=== PATIENT | male | born 1950 | race Caucasian/White ===

== ENCOUNTER 2016-08-18 21:05 | Inpatient (IN) | payer OTHER ==
[~2016-08-18] VITALS: Ht 180.3 cm; Wt 98.7 kg
[2016-08-18 21:11] VITALS: BP 204/104; PULSE 123; RESP 38; O2SAT 99
[2016-08-18] MEDS ORDERED: ETOMIDATE 40 MG/20 ML VIAL ONE (21:23)
[2016-08-18] MEDS ORDERED: SUCCINYLCHOLINE CHLORIDE 200 MG/10 ML VIAL ONE (21:24)
[2016-08-18] MEDS ORDERED: SUCCINYLCHOLINE CHLORIDE 200 MG/10 ML VIAL IV PUSH ONE (21:30)
[2016-08-18] MEDS ORDERED: RESP: ALBUTEROL 2.5 MG/IPRATROPIUM 0.5 MG NEB (SCH) INH ONE (21:30)
[2016-08-18] MEDS ORDERED: ETOMIDATE 20 MG/10 ML VIAL IV PUSH ONE (21:30)
[2016-08-18] MEDS ORDERED: SODIUM CHLORIDE 0.9% FLUSH 5 ML FLUSH IVF PRN (21:30)
[2016-08-18] MEDS ORDERED: PROPOFOL 1000 MG/100 ML INJ 100 ML ONE (21:35)
[2016-08-18 21:43] VITALS: O2SAT 100
--- NOTE | 2016-08-18 21:54 | RADRPT ---
EXAM DATE/TIME: 08/18/2016 21:33 [place] COMPARISON: No previous studies available for comparison. INDICATIONS : Endotracheal tube placement. MEDICAL HISTORY : None. SURGICAL HISTORY : None. ENCOUNTER: Initial ACUITY: 1 day PAIN SCORE: Non-responsive. LOCATION: Bilateral chest FINDINGS: A single view of the chest demonstrates the lungs to be symmetrically aerated without evidence of mas s, infiltrate or effusion. ET tube 6 cm above the juan c. Nasogastric tube tip in stomach. The cardio mediastinal contours are unremarkable. Osseous structures are intact. Left humeral prosthesis. Degen erative changes right shoulder. CONCLUSION: 1. Adequate placement of endotracheal tube. 2. Clear lungs. Travon Paris MD on August 18, 2016 at 21:53 Board Certified Radiologist. This report was verified electronically.
--- NOTE | 2016-08-18 21:59 | PD ---
HPI Chief Complaint: Respiratory Distress Time Seen by Provider: 21:10 Travel History International Travel<30 days: No Contact w/Intl Traveler<30days: No Traveled to known affect area: No History of Present Illness HPI The patient is a 65-year-old male who presents to the emergency department via EMS for shortness of breath. According to EMS the patient shortness of breath started approximately 2 hours prior to arrival. When they arrived the patient was short of breath, had elevated respiratory rate, and was placed on CPAP prior to arrival. The patient does have a history of questionable COPD/emphysema, but denies any known history of congestive heart failure. Upon arrival the patient was on continuous positive airway pressure, therefore, was unable to answer questions in . He was able to shake his head yes or no. He denies any history of CHF, cough, or known history of pulmonary embolism/DVT. He denied any chest pain. Symptoms are moderate to severe, no known alleviating or exacerbating factors. PFSH Past Medical History COPD: Yes Diminished Hearing: No Tetanus Vaccination: Unknown Past Surgical History Surgical History: Unable to Obtain Social History Alcohol Use: No Tobacco Use: No Substance Use: No Allergies-Medications (Allergen,Severity, Reaction): Coded Allergies: No Known Allergies (Unverified , 08/18/16) Reported Meds & Prescriptions Reported Meds & Active Scripts Active Active Prescriptions or Reported Medications Unobtainable Review of Systems Except as stated in HPI: all other systems reviewed are Neg General / Constitutional: No: Fever Cardiovascular: No: Chest Pain or Discomfort Respiratory: Positive: Shortness of Breath, No: Cough Gastrointestinal: No: Nausea, Vomiting, Abdominal Pain Physical Exam Narrative GENERAL: Awake, alert, pleasant 65-year-old male appears his stated age and is in moderate to severe respiratory distress. SKIN: Warm and dry. HEAD: Atraumatic. Normocephalic. EYES: No injection or drainage. ENT: CPAP mask on. NECK: Trachea midline. No JVD. CARDIOVASCULAR: Regular, tachycardic with a heart rate in the 130s. RESPIRATORY: Tachypnea with a respiratory rate of 40. Visible supraclavicular and intercostal retractions. Minimal depressed breath sounds in the bases. Prolonged expiratory phase. GASTROINTESTINAL: Abdomen soft, non-tender, nondistended. Abdominal breathing present. MUSCULOSKELETAL: No obvious deformities. No clubbing. No cyanosis. No edema. NEUROLOGICAL: Awake and alert. No obvious cranial nerve deficits. Motor grossly within normal limits. Normal speech. PSYCHIATRIC: Appears anxious. Data Data Last Documented VS Vital Signs Date Time Temp Pulse Resp B/P Pulse Ox O2 Delivery O2 Flow Rate FiO2 08/18/16 21:43 100 50 08/18/16 21:11 123 38 204/104 Orders Etomidate Inj (Amidate Inj) (08/18/16 21:23) Complete Blood Count With Diff (08/18/16 21:23) Comprehensive Metabolic Panel (08/18/16 21:23) B-Type Natriuretic Peptide (08/18/16 21:23) Act Partial Throm Time (Ptt) (08/18/16 21:23) Prothrombin Time / Inr (Pt) (08/18/16 21:23) Magnesium (Mg) (08/18/16 21:23) Ckmb (Isoenzyme) Profile (08/18/16 21:23) Troponin I (08/18/16 21:23) Blood Culture (08/18/16 21:23) Iv Access Insert/Monitor (08/18/16 21:23) Electrocardiogram (08/18/16 21:23) Ecg Monitoring (08/18/16 21:23) Oximetry (08/18/16 21:23) Oxygen Administration (08/18/16 21:23) Chest, Single Ap (08/18/16 21:23) Ct Pulmonary Angiogram (08/18/16 21:23) Sodium Chloride 0.9% Flush (Ns Flush) (08/18/16 21:30) Albuterol-Ipratropium Neb (Duoneb Neb) (08/18/16 21:30) Etomidate Inj (Amidate Inj) (08/18/16 21:30) Succinylcholine Inj (Quelicin Inj) (08/18/16 21:30) Succinylcholine Inj (Quelicin Inj) (08/18/16 21:24) Propofol 1000 Mg/100 Ml Inj (Diprivan 10 (08/18/16 21:35) Lactic Acid (08/18/16 21:50) Propofol 1000 Mg/100 Ml Inj (Diprivan 10 (08/18/16 22:00) ^ Infusion (08/18/16 21:50) RASS (08/18/16 21:50) Neurological Rass Scale JONATHAN.Q2H (08/18/16 21:50) Sodium Chlor 0.9% 1000 Ml Inj (Ns 1000 M (08/18/16 22:00) Midazolam Inj (Versed Inj) (08/18/16 22:00) Neurological Rass Scale Q30MX2,Q2HX4,Q4H (08/18/16 22:00) Neurological Rass Scale Q30MX2,Q2HX4,Q4H (08/18/16 22:00) Fentanyl Drip (Fentanyl Drip) (08/18/16 22:00) Midazolam Inj (Versed Inj) (08/18/16 22:15) CKMB (08/18/16 21:20) CKMB% (08/18/16 21:20) Blood Gas Venous (Vbg) (08/18/16 22:30) Cbc No Diff, Includes Plts (08/19/16 06:00) Cbc No Diff, Includes Plts (08/20/16 06:00) Cbc No Diff, Includes Plts (08/21/16 06:00) Cbc No Diff, Includes Plts (08/22/16 06:00) Cbc No Diff, Includes Plts (08/23/16 06:00) Cbc No Diff, Includes Plts (08/24/16 06:00) Cbc No Diff, Includes Plts (08/25/16 06:00) Basic Metabolic Panel (Bmp) (08/19/16 06:00) Basic Metabolic Panel (Bmp) (08/20/16 06:00) Basic Metabolic Panel (Bmp) (08/21/16 06:00) Basic Metabolic Panel (Bmp) (08/22/16 06:00) Basic Metabolic Panel (Bmp) (08/23/16 06:00) Basic Metabolic Panel (Bmp) (08/24/16 06:00) Basic Metabolic Panel (Bmp) (08/25/16 06:00) Restraints Non-Violent JONATHAN.Q2H.E (08/18/16 23:26) Neurological Rass Scale JONATHAN.Q2H (08/18/16 23:26) Propofol 1000 Mg/100 Ml Inj (Diprivan 10 (08/18/16 23:30) RASS (08/18/16 23:26) ^ Infusion (08/18/16 23:26) Fentanyl Drip (Fentanyl Drip) (08/18/16 23:30) Neurological Rass Scale Q30MX2,Q2HX4,Q4H (08/18/16 23:26) Magnesium Oxide (Mag-Ox) (08/18/16 23:30) Magnesium Sulfate Inj (Magnesium Sulfate (08/18/16 23:30) Magnesium Sulfate Inj (Magnesium Sulfate (08/18/16 23:30) Potassium Chlor 20 Meq Premix (Kcl 20 Me (08/18/16 23:30) Potassium Chlor 20 Meq Premix (Kcl 20 Me (08/18/16 23:30) Potassium Chlor 40 Meq Premix (Kcl 40 Me (08/18/16 23:30) Potassium Chlor 40 Meq Premix (Kcl 40 Me (08/18/16 23:30) Potassium Cl 40 Meq/30 Ml Liq (Kcl 40 Me (08/18/16 23:30) Potassium Cl 40 Meq/30 Ml Liq (Kcl 40 Me (08/18/16 23:30) Potassium Phosphate (K-Phos) (08/18/16 23:30) Potassium Phosphate (K-Phos) (08/18/16 23:30) Potassium Phosphate Inj (Potassium Phosp (08/18/16 23:30) Sodium Phosphate Inj (Sodium Phosphate I (08/18/16 23:30) ^ Medication Admin Instruction (08/18/16 23:26) ^ Notify Dr: Other (08/18/16 23:26) Inpatient Certification (08/18/16 23:26) Bedside Glucose JONATHAN.Q6H (08/18/16 23:26) ^ Blood Glucose Goal (Criteria (08/18/16 23:26) ^ Hypoglycemia 51 - 69 Mg/Dl (08/18/16 23:26) ^ Hypoglycemia 50 Mg/Dl Or < (08/18/16 23:26) ^ Notify Dr: Other (08/18/16 23:26) Dextrose 50% In [place] (Vial) Inj (D50w (Vi (08/18/16 23:30) Insulin Human Reg Supp Scale (Novolin R (08/19/16 00:00) Albuterol-Ipratropium Neb (Duoneb Neb) (08/19/16 04:00) Albuterol-Ipratropium Neb (Duoneb Neb) (08/18/16 23:30) Urinary Catheter Management JONATHAN.Q1H (08/18/16 23:26) Sputum Culture And Gram Stain (08/18/16 23:26) Urinalysis - C+S If Indicated (08/18/16:26) Specimen To Be Collected PRN (08/18/16:) Code Status (08/18/16:) Vital Signs (Adult) JONATHAN.Q1H (08/18/16 23:26) Activity Bed Rest (08/18/16 23:26) ^ Elevate Head Of Bed (08/18/16 23:26) Neuro Checks . ORDERED (08/18/16:26) ^ Orogastric Tube (08/18/16:26) Sodium Chloride 0.9% Flush (Ns Flush) (08/18/16 23:30) Sodium Chloride 0.9% Flush (Ns Flush) (08/19/16 09:00) Pantoprazole Inj (Protonix Inj) (08/19/16 09:00) Ondansetron Inj (Zofran Inj) (08/18/16 23:30) Docusate Sodium-Senna (Lety-Colace) (08/19/16 09:00) Scd Bilateral/Knee High JONATHAN.BID (08/18/16 23:26) ^ Initiate Protocol (08/18/16:26) ^ Instruction (08/18/16:26) [facility] [place] [facility] [place] (08/18/16 23:30) Chlorhexidine 2% Cloth (Chlorhexidine 2% (08/19/16 04:00) Chlorhexidine 2% Cloth (Chlorhexidine 2% (08/18/16 23:30) Neurological Rass Scale JONATHAN.Q2H.E (08/18/16 23:26) ^ Elevate Head Of Bed (08/18/16 23:26) Chlorhexidine 0.12% Liq (Peridex 0.12% L (08/19/16 08:00) Resp Ventilation- Volume (08/18/16 ) Ventilator Weaning Readiness JONATHAN.DAILY@0800 (08/18/16 23:26) Levofloxacin 750 Mg Premix Inj (Levaquin (08/18/16 23:30) Admit Order (Ed Use Only) (08/18/16 23:37) Labs Laboratory Tests Test 08/18/16 08/18/16 08/18/16 21:20 21:50 22:30 White Blood Count 12.4 TH/MM3 Red Blood Count 5.04 MIL/MM3 Hemoglobin 14.2 GM/DL Hematocrit 44.0 % Mean Corpuscular Volume 87.3 FL Mean Corpuscular Hemoglobin 28.2 PG Mean Corpuscular Hemoglobin 32.4 % Concent Red Cell Distribution Width 15.3 % Platelet Count 322 TH/MM3 Mean Platelet Volume 7.6 FL Neutrophils (%) (Auto) 68.2 % Lymphocytes (%) (Auto) 16.0 % Monocytes (%) (Auto) 8.0 % Eosinophils (%) (Auto) 7.0 % Basophils (%) (Auto) 0.8 % Neutrophils # (Auto) 8.4 TH/MM3 Lymphocytes # (Auto) 2.0 TH/MM3 Monocytes # (Auto) 1.0 TH/MM3 Eosinophils # (Auto) 0.9 TH/MM3 Basophils # (Auto) 0.1 TH/MM3 CBC Comment DIFF FINAL Differential Comment Prothrombin Time 11.3 SEC Prothromb Time International 1.0 RATIO Ratio Activated Partial 25.8 SEC Thromboplast Time Sodium Level 138 MEQ/L Potassium Level 4.2 MEQ/L Chloride Level 104 MEQ/L Carbon Dioxide Level 27.0 MEQ/L Anion Gap 7 MEQ/L Blood Urea Nitrogen 24 MG/DL Creatinine 1.02 MG/DL Estimat Glomerular Filtration 74 ML/MIN Rate Random Glucose 143 MG/DL Calcium Level 8.5 MG/DL Magnesium Level 2.0 MG/DL Total Bilirubin 0.7 MG/DL Aspartate Amino Transf 12 U/L (AST/SGOT) Alanine Aminotransferase 20 U/L (ALT/SGPT) Alkaline Phosphatase 87 U/L Total Creatine Kinase 168 U/L Creatine Kinase MB 4.6 NG/ML Troponin I LESS THAN 0.02 NG/ML B-Type Natriuretic Peptide 33 PG/ML Total Protein 7.2 GM/DL Albumin 3.8 GM/DL Lactic Acid Level 1.0 mmol/L Blood Gas Puncture Site RT RADIAL Blood Gas Patient Temperature 98.6 Venous Blood pH 7.21 Venous Blood Partial Pressure 66 mmHg CO2 Venous Blood Partial Pressure 42 mmHg O2 Venous Blood HCO3 25 mmol/L Venous Blood Oxygen Saturation 64 % Venous Blood Oxygen Content 11.6 Vol % Venous Blood Base Excess -1.8 mmol/L Oxygen Delivery Device VENTILATOR Blood Gas Ventilator Setting PRVC/AC Blood Gas Inspired Oxygen 50 % [facility] Medical Decision Making Medical Screen Exam Complete: Yes Emergency Medical Condition: Yes Medical Record Reviewed: Yes Interpretation(s) EKG reveals sinus tachycardia with a heart rate of 102. QTC [address] elevations noted. Laboratory Tests Test 08/18/16 08/18/16 08/18/16 21:20 21:50 22:30 White Blood Count 12.4 TH/MM3 Red Blood Count 5.04 MIL/MM3 Hemoglobin 14.2 GM/DL Hematocrit 44.0 % Mean Corpuscular Volume 87.3 FL Mean Corpuscular Hemoglobin 28.2 PG Mean Corpuscular Hemoglobin 32.4 % Concent Red Cell Distribution Width 15.3 % Platelet Count 322 TH/MM3 Mean Platelet Volume 7.6 FL Neutrophils (%) (Auto) 68.2 % Lymphocytes (%) (Auto) 16.0 % Monocytes (%) (Auto) 8.0 % Eosinophils (%) (Auto) 7.0 % Basophils (%) (Auto) 0.8 % Neutrophils # (Auto) 8.4 TH/MM3 Lymphocytes # (Auto) 2.0 TH/MM3 Monocytes # (Auto) 1.0 TH/MM3 Eosinophils # (Auto) 0.9 TH/MM3 Basophils # (Auto) 0.1 TH/MM3 CBC Comment DIFF FINAL Differential Comment Prothrombin Time 11.3 SEC Prothromb Time International 1.0 RATIO Ratio Activated Partial 25.8 SEC Thromboplast Time Sodium Level 138 MEQ/L Potassium Level 4.2 MEQ/L Chloride Level 104 MEQ/L Carbon Dioxide Level 27.0 MEQ/L Anion Gap 7 MEQ/L Blood Urea Nitrogen 24 MG/DL Creatinine 1.02 MG/DL Estimat Glomerular Filtration 74 ML/MIN Rate Random Glucose 143 MG/DL Calcium Level 8.5 MG/DL Magnesium Level 2.0 MG/DL Total Bilirubin 0.7 MG/DL Aspartate Amino Transf 12 U/L (AST/SGOT) Alanine Aminotransferase 20 U/L (ALT/SGPT) Alkaline Phosphatase 87 U/L Total Creatine Kinase 168 U/L Creatine Kinase MB 4.6 NG/ML Troponin I LESS THAN 0.02 NG/ML B-Type Natriuretic Peptide 33 PG/ML Total Protein 7.2 GM/DL Albumin 3.8 GM/DL Lactic Acid Level 1.0 mmol/L Blood Gas Puncture Site RT RADIAL Blood Gas Patient Temperature 98.6 Venous Blood pH 7.21 Venous Blood Partial Pressure 66 mmHg CO2 Venous Blood Partial Pressure 42 mmHg O2 Venous Blood HCO3 25 mmol/L Venous Blood Oxygen Saturation 64 % Venous Blood Oxygen Content 11.6 Vol % Venous Blood Base Excess -1.8 mmol/L Oxygen Delivery Device VENTILATOR Blood Gas Ventilator Setting PRVC/AC Blood Gas Inspired Oxygen 50 % Last Impressions Chest X-Ray 08/18/162122 Signed Impressions: Service Date/Time: Thursday, August 18, 2016 21:33 - CONCLUSION: 1. Adequate placement of endotracheal tube. 2. Clear lungs. Travon Paris MD Differential Diagnosis Differential diagnosis includes COPD exacerbation, flash pulmonary edema, pneumonia, pulmonary embolism, pleural effusion, ACS, hypoxia. Narrative Course IV was established, labs are drawn and sent, and the patient was placed on cardiac telemetry monitoring and continuous pulse oximetry monitoring. The patient was immediately placed on BiPap. Chest x-ray was ordered and CT pulmonary angiogram was ordered. EKG was ordered and performed. The patient was monitored, he had increasing symptoms despite positive pressure ventilation , had a discussion with the patient at bedside regarding intubation, patient was agreeable. Therefore, patient was intubated using rapid sequence intubation with an 8.0 endotracheal tube. Chest x-ray was then performed which reveals adequate placement endotracheal tube and orogastric tube, clear lungs. Therefore, CT pulmonary angiogram was performed. The patient was placed on propofol for sedation and IV fluids. Lactic acid and blood cultures were sent to lab. White count is minimally elevated, chest x-ray was clear. The patient is afebrile, had a discussion with the daughter, who states the patient had one episode of respiratory problems in the past secondary to pneumonia. I discussed the patient with the on-call product marketing executive, Dr. Maxwell, who agrees with admission. Critical Care Narrative Aggregate critical care time was 40 minutes. Time to perform other separately billable procedures was not included in the critical care time. My time did not include minutes spent treating any other patients simultaneously or on activities that did not directly contribute to the patient's treatment. The services I provided to this patient were to treat and/or prevent clinically significant deterioration that could result in: Anoxia, hypoxia, arrhythmia, aspiration, . I provided critical care services requiring my management, as noted below: Chart data review, documentation time, medication orders and management, vital sign assessments/reviewing monitor data, ordering and reviewing lab tests, ordering and interpreting/reviewing x-rays and diagnostic studies, care of the patient and discussion of the patient with the admitting physicians. Procedures Procedure Narrative After the risks and benefits were discussed the following procedure was performed: INTUBATION: The patient was put in optimal position for the procedure. Rapid sequence intubation was initiated by me using 20 milligrams of etomidate IV and 100 milligrams of succinylcholine IV. The patient was intubated with a 8-0 cuffed endotracheal tube. Tube placement was confirmed by visualization of the tube and balloon passing through the cords, capnometry and subsequent chest x- ray. Breath sounds were equal and well aerated bilaterally postintubation. No breath sounds over stomach. Patient tolerated procedure well. Physician Communication Physician Communication I discussed the patient with Dr. Maxwell who agrees with admission. Diagnosis Primary Impression: Respiratory distress Additional Impression: Dyspnea Qualified Code: R06.00 - Dyspnea, unspecified type Scripts Unable to Obtain Active Prescriptions or Reported Meds Condition: Critical Andrea Greco MD Aug 18, 2016 21:59
[2016-08-18 22:00] VITALS: BP 83/54; PULSE 102; RESP 16; O2SAT 99
[2016-08-18] MEDS ORDERED: PROPOFOL 1000 MG/100 ML INJ 100 ML IV SCH (22:00)
[2016-08-18] MEDS ORDERED: SODIUM CHLOR 0.9% 1000 ML INJ 1,000 ML IV ONE (22:00)
[2016-08-18] MEDS ORDERED: fentaNYL DRIP 250 ML IV SCH ×2 (22:00→23:30)
[2016-08-18] MEDS ORDERED: MIDAZOLAM 100 MG/ML INJ 100 ML IV SCH (22:00)
[2016-08-18 22:10] LABS: AUTOMATED NEUTROPHIL # 8.4 TH/MM3 (1.8-7.7); BASOPHIL # 0.1 TH/MM3 (0-0.2); BASOPHIL % 0.8 % (0.0-2.0); EOSINOPHIL # 0.9 TH/MM3 (0-0.4); HEMO FLAGS DIFF FINAL; MEAN CELL VOLUME 87.3 FL (80.0-100.0); MEAN CORPUSCULAR HEMOGLOBIN 28.2 PG (27.0-34.0); MEAN CORPUSCULAR HGB CONC 32.4 % (32.0-36.0); NEUT % 68.2 % (16.0-70.0); PLATELET COUNT 322 TH/MM3 (150-450); RED BLOOD COUNT 5.04 MIL/MM3 (4.50-5.90); RED CELL DISTRIBUTION WIDTH 15.3 % (11.6-17.2); WHITE BLOOD COUNT 12.4 TH/MM3 (4.0-11.0)
[2016-08-18] MEDS ORDERED: MIDAZOLAM HCL 2 MG/2 ML VIAL IV PUSH ONE (22:15)
[2016-08-18 22:30] VITALS: BP 110/62; PULSE 108; RESP 16; O2SAT 99
[2016-08-18 22:30] LABS: APTT (PATIENT) 25.8 SEC (24.3-30.1); PROTHROMBIN TIME - PATIENT 11.3 SEC (9.8-11.6)
[2016-08-18 22:36] LABS: ALT (GPT) 20 U/L (12-78); ANION GAP 7 MEQ/L (5-15); AST (GOT) 12 U/L (15-37); BLOOD UREA NITROGEN 24 MG/DL (7-18); CHLORIDE 104 MEQ/L (98-107); GLOMERULAR FILTRATION RATE 74 ML/MIN (>89); POTASSIUM 4.2 MEQ/L (3.5-5.1); SODIUM (NA) 138 MEQ/L (136-145)
[2016-08-18 22:40] LABS: ALKALINE PHOSPHATASE 87 U/L (45-117); CREATINE KINASE 168 U/L (39-308); TOTAL BILIRUBIN ADULT 0.7 MG/DL (0.2-1.0)
[2016-08-18 22:41] LABS: BLOOD GAS VENOUS BASE EXCESS -1.8 mmol/L (-2-2); BLOOD GAS VENOUS HCO3 25 mmol/L (22-26); BLOOD GAS VENOUS O2 CONTENT 11.6 Vol % (9.0-17.0); BLOOD GAS VENOUS O2 HGB SAT 64 % (70-76); BLOOD GAS VENOUS PCO2 66 mmHg (44-48); BLOOD GAS VENOUS PO2 42 mmHg (35-40); BLOOD GAS VENOUS pH 7.21 (7.360-7.400); CRITICAL VALUE YES; OXYGEN DEVICE VENTILATOR; TEMP CORR TO 98.6
[2016-08-18 22:42] LABS: DRAW SITE RT RADIAL; FIO2 50 %; STAT YES; VENT SETTINGS PRVC/AC
[2016-08-18 22:53] LABS: CKMB 4.6 NG/ML (0.5-3.6)
[2016-08-18 23:00] VITALS: BP 153/89; PULSE 102; RESP 16; O2SAT 100
[2016-08-18 23:30] VITALS: BP 155/88; PULSE 104; RESP 16; O2SAT 99
[2016-08-18] MEDS ORDERED: MAGNESIUM SULFATE INJ 2 GM in SODIUM CHLORIDE 0.9% INJ 96 ML IV PRN (23:30)
[2016-08-18] MEDS ORDERED: POTASSIUM CHLOR 40 MEQ PREMIX 100 ML IV PRN ×2 (23:30)
[2016-08-18] MEDS ORDERED: DEXTROSE 50% IN WATER 50 ML VIAL(D50) IV PUSH PRN (23:30)
[2016-08-18] MEDS ORDERED: ONDANSETRON HCL 4 MG/2 ML VIAL IV PRN (23:30)
[2016-08-18] MEDS ORDERED: MISCELLANEOUS NURSING INFORMATION XX SCH (23:30)
[2016-08-18] MEDS ORDERED: POTASSIUM PHOSPHATE MONOBASIC 500 MG TAB PO/TUBE PRN (23:30)
[2016-08-18] MEDS ORDERED: MAGNESIUM SULFATE INJ 4 GM in SODIUM CHLORIDE 0.9% INJ 92 ML IV PRN (23:30)
[2016-08-18] MEDS ORDERED: CHLORHEXIDINE GLUCONATE 2 % 1 PACK (2 CLOTHS) TOP PRN (23:30)
[2016-08-18] MEDS ORDERED: POTASSIUM PHOSPHATE INJ 30 MMOL in SODIUM CHLOR 0.9% 250 ML INJ 250 ML IV PRN (23:30)
[2016-08-18] MEDS ORDERED: RESP: ALBUTEROL 2.5 MG/IPRATROPIUM 0.5 MG NEB (PRN) INH (23:30)
[2016-08-18] MEDS ORDERED: POTASSIUM CL 40 MEQ/30 ML LIQ UDC PO/TUBE PRN ×2 (23:30)
[2016-08-18] MEDS ORDERED: SODIUM CHLORIDE 0.9% FLUSH 5 ML FLUSH IV FLUSH PRN (23:30)
[2016-08-18] MEDS ORDERED: SODIUM PHOSPHATE INJ 30 MMOL in SODIUM CHLOR 0.9% 250 ML INJ 240 ML IV PRN (23:30)
[2016-08-18] MEDS ORDERED: POTASSIUM CHLOR 20 MEQ PREMIX 100 ML IV PRN ×2 (23:30)
[2016-08-18] MEDS ORDERED: POTASSIUM PHOSPHATE MONOBASIC 500 MG TAB PO PRN (23:30)
[2016-08-18] MEDS ORDERED: MAGNESIUM OXIDE 400 MG TAB PO PRN (23:30)
--- NOTE | 2016-08-18 23:31 | HHI.HP ---
[facility] Service Critical Care Medicine Primary Care Physician Unknown Admission Diagnosis Diagnosis: Chief Complaint: shortness of breath Travel History International Travel<30 Days: No Contact w/Intl Traveler <30 Da: No Traveled to Known Affected Are: No History of Present Illness This is a 65-year-old male who has a remote prior smoking history and a history of hypertension who presents with a few day history of mild dyspnea followed by severe dyspnea today who presented to the emergency room with severe shortness of breath. He endorses a cough, but denied fever, chills. Denied abdominal pain, nausea, vomiting, constipation, diarrhea. He was otherwise in his usual state of health. He was active today and per his [id number] he babysat his grandchildren. The patient was initially trialed on BiPAP but failed for acute dyspnea and hypoxia and was intubated in the emergency department. He was awake enough on my evaluation that he could nod to answer questions, but was still on sedation and so the remainder the history was very difficult to obtain. Critical care medicine is consult to evaluate his acute hypoxic failure. Of note, the patient did convey to me that he recently seen a outpatient physician and was given steroids for this shortness of breath. He does not have a documented history of COPD, but does have a remote long history of smoking Review of Systems ROS Limitations: Clinical Condition, Intubated Past Family Social History Allergies: Coded Allergies: No Known Allergies (Unverified , 08/18/16) Past Medical History Hypertension Past Surgical History Left shoulder arthroplasty Reported Medications Lisinopril Active Ordered Medications See MAR Family History A complete family history is unobtainable secondary to patient's clinical condition. It is unlikely to be contributory to his acute illness. Social History Complete social history is unobtainable secondary to patient's clinical condition. He does have a remote history of smoking but has not smoked in a number of years. Physical Exam Vital Signs Vital Signs Date Time Temp Pulse Resp B/P Pulse Ox O2 Delivery O2 Flow Rate FiO2 08/18/16 21:43 100 50 08/18/16 21:11 123 38 204/104 99 Physical Exam GENERAL: Middle-aged male, lying in bed, intubated HEENT: Normocephalic. Atraumatic. Pupils equal, round, reactive, conjugate. Mucous membranes are moist. NECK: Trachea is midline. There is no JVD. CHEST: Equal chest rise. Scant expiratory wheezes. Intubated on PRVC. CARDIOVASCULAR: Normal rate, regular rhythm. No appreciable murmurs. ABDOMEN: Nontender, nondistended. No guarding. MUSCULOSKELETAL: No peripheral edema. Distal pulses 2+. NEUROLOGICAL: RASS -2. CAM -. Follows commands in all 4 extremities. Laboratory Laboratory Tests Test 08/18/16 08/18/16 08/18/16 21:20 21:50 22:30 White Blood Count 12.4 Red Blood Count 5.04 Hemoglobin 14.2 Hematocrit 44.0 Mean Corpuscular Volume 87.3 Mean Corpuscular Hemoglobin 28.2 Mean Corpuscular Hemoglobin 32.4 Concent Red Cell Distribution Width 15.3 Platelet Count 322 Mean Platelet Volume 7.6 Neutrophils (%) (Auto) 68.2 Lymphocytes (%) (Auto) 16.0 Monocytes (%) (Auto) 8.0 Eosinophils (%) (Auto) 7.0 Basophils (%) (Auto) 0.8 Neutrophils # (Auto) 8.4 Lymphocytes # (Auto) 2.0 Monocytes # (Auto) 1.0 Eosinophils # (Auto) 0.9 Basophils # (Auto) 0.1 CBC Comment DIFF FINAL Differential Comment Prothrombin Time 11.3 Prothromb Time International 1.0 Ratio Activated Partial 25.8 Thromboplast Time Sodium Level 138 Potassium Level 4.2 Chloride Level 104 Carbon Dioxide Level 27.0 Anion Gap 7 Blood Urea Nitrogen 24 Creatinine 1.02 Estimat Glomerular Filtration 74 Rate Random Glucose 143 Calcium Level 8.5 Magnesium Level 2.0 Total Bilirubin 0.7 Aspartate Amino Transf 12 (AST/SGOT) Alanine Aminotransferase 20 (ALT/SGPT) Alkaline Phosphatase 87 Total Creatine Kinase 168 Creatine Kinase MB 4.6 Troponin I LESS THAN 0.02 B-Type Natriuretic Peptide 33 Total Protein 7.2 Albumin 3.8 Lactic Acid Level 1.0 Blood Gas Puncture Site RT RADIAL Blood Gas Patient Temperature 98.6 Venous Blood pH 7.21 Venous Blood Partial Pressure 66 CO2 Venous Blood Partial Pressure 42 O2 Venous Blood HCO3 25 Venous Blood Oxygen Saturation 64 Venous Blood Oxygen Content 11.6 Venous Blood Base Excess -1.8 Oxygen Delivery Device VENTILATOR Blood Gas Ventilator Setting PRVC/AC Blood Gas Inspired Oxygen 50 Date/Time Procedure Status Source Growth 08/18/16 21:25 Aerobic Blood Culture Received Blood Peripheral Pending 08/18/16 21:25 Anaerobic Blood Culture Received Blood Peripheral Pending Result Diagram: 08/18/16211908/18/162119 Imaging Chest x-ray 08/18: No acute abnormalities CT pulmonary angiogram 08/18: Negative for acute PE. Assessment and Plan Assessment and Plan Assessment: This is a 65-year-old male with questionable possible COPD history and certainly a remote prior smoking history who has a subacute course of dyspnea which was acutely worse today and he presented in acute hypoxic and hypercarbic respiratory failure requiring intubation and mechanical ventilation. His BNP and troponin are negative. This is unlikely to be acute volume overload. His CT pulmonary angiogram is without evidence of PE. His CT is also without evidence of consolidative alveolar process. I think this point we are left with probable COPD exacerbation as a cause for his acute hypoxia. We will start empiric steroids and Levaquin for possible CAP. we will follow up culture data. For now he remains critically ill. Plan by systems: Neurologic: Agitation associated with mechanical ventilation Propofol and fentanyl for goal RASS -2 Respiratory: Acute hypoxic and hypercarbic respiratory failure COPD exacerbation Possible community-acquired pneumonia Low tidal volume ventilation targeting 6 cc/kg ideal body weight Wean FiO2 for goal SPO2 greater than 90% Vent bundle Head of bed at 30 Methylprednisolone 60 mg IV every 12 Nebs every 4 and every 2 when necessary Does not meet SBT criteria today for acute hypoxia CT pulmonary angiogram 08/18: Negative for PE Cardiovascular: Continue telemetry Maintenance fluids LR 150 cc an hour LR bolus 1 L now Renal: Victor catheter for accurate I's and O's -- Strict I/Os FEN/GI: Maintenance fluids as above ICU electrolyte protocol Daily BMP Nothing by mouth for now Heme/ID: Possible community-acquired pneumonia COPD exacerbation We'll obtain flu swab Follow-up blood, sputum cultures Levaquin 750 mg IV 24 hours Daily CBC Endocrine: Hyperglycemia of critical illness -- SSI, every 6 hours, medium scale Prophylaxis: GI Prophylaxis Protonix 40 mg IV daily 24 hours DVT Prophylaxis -- SCDs Lovenox 40 mg IV daily 24 hours Lines: Peripheral IVs Victor Dispo: Admit to the ICU. He remains critically ill This patient remains critically ill with one or more organ systems which are or may become a threat to life. I have spent in excess of 57 minutes discontinuously in the care and management of this patient. This time is exclusive of procedures, and includes, but is not limited to, evaluation of the patient, review of the medical record, discussions with family, consultants, nursing staff, or respiratory therapy, and documentation in the medical record. Code Status Full Code Delvis Maxwell MD Aug 18, 2016 23:30
[2016-08-19] VITALS (20 sets, daily range): BP systolic 108–165; BP diastolic 61–94; PULSE 61–102; RESP 13–20; TEMP 97.6–98.7; O2SAT 95–100
[2016-08-19 00:15] LABS: BLOOD, URINE SMALL (NEG); GLUCOSE,URINE NEG (NEG); KETONE, URINE NEG (NEG); MUCUS URINE FEW /lpf (OCC); NITRITE,URINE NEG (NEG); PH, URINE 5.5 (5.0-8.5); URINE COLOR YELLOW (YELLW/STRAW)
[2016-08-19 00:17] LABS: COMMENT (UR) CATH-CULT NOT IND; CULTURE IF INDICATED CATH CULTURE NOT IND
[2016-08-19] MEDS: LEVOFLOXACIN 750 MG PREMIX INJ 150 ML IV SCH (00:31)
[2016-08-19] MEDS: PROPOFOL 1000 MG/100 ML INJ 100 ML IV SCH ×4 (00:41→09:41)
[2016-08-19] MEDS: INSULIN NovoLIN REGULAR SUPPLEMENTAL SCALE SQ SCH ×4 (00:50→18:00)
[2016-08-19] MEDS ORDERED: IOHEXOL 350 MG/ML 10 ML VIAL (for RAD DIAG) IV ONE ×2 (01:38→03:27)
--- NOTE | 2016-08-19 03:24 | RADRPT ---
EXAM DATE/TIME: 08/19/2016 01:29 [facility] COMPARISON: No previous studies available for comparison. INDICATIONS : Sudden onset short of breath, evaluate for pulmonary emoblism . IV CONTRAST: 75 cc Omnipaque 350 (iohexol) IV RADIATION DOSE: 23.46 CTDIvol (mGy) MEDICAL HISTORY : Chronic obstructive pulmonary disease. SURGICAL HISTORY : None. ENCOUNTER: Initial ACUITY: 1 day PAIN SCALE: Non-responsive LOCATION: chest TECHNIQUE: Volumetric scanning of the chest was performed using a pulmonary embolism protocol MIP images were re constructed. Using automated exposure control and adjustment of the mA and/or kV according to patien t size, radiation dose was kept as low as reasonably achievable to obtain optimal diagnostic quality images. FINDINGS: PULMONARY ARTERIES: No filling defects are seen in the pulmonary arteries through the segmental level. LUNGS: Minimal basilar atelectasis. PLEURAE: There is no pleural thickening or pleural effusion. MEDIASTINUM: There is good visualization of the great vessels of the middle mediastinum. No evidence of mediastin al or hilar adenopathy/mass. MUSCULOSKELETAL: Within normal limits for patient age. MISCELLANEOUS: The visualized upper abdominal organs demonstrate no acute abnormality. Endotracheal tube and nasogas tric tube present in good position CONCLUSION: No evidence of pulmonary embolism Robert Mendez MD on August 19, 2016 at 3:18 Board Certified Radiologist. This report was verified electronically.
[2016-08-19] MEDS ORDERED: LACTATED RINGER'S 1000 ML INJ 1,000 ML IV ONE (03:30)
[2016-08-19] MEDS: LACTATED RINGER'S 1000 ML INJ 1,000 ML IV SCH ×3 (03:54→16:50)
[2016-08-19] MEDS ORDERED: RESP: ALBUTEROL 2.5 MG/IPRATROPIUM 0.5 MG NEB (SCH) INH (04:00)
[2016-08-19] MEDS ORDERED: RESP: ALBUTEROL 2.5 MG/IPRATROPIUM 0.5 MG NEB (PRN) INH (04:15)
[2016-08-19 04:29] LABS: HEMATOCRIT 39.7 % (39.0-51.0); MEAN CELL VOLUME 86.7 FL (80.0-100.0); MEAN CORPUSCULAR HEMOGLOBIN 28.3 PG (27.0-34.0); MEAN CORPUSCULAR HGB CONC 32.7 % (32.0-36.0); PLATELET COUNT 273 TH/MM3 (150-450); RED BLOOD COUNT 4.57 MIL/MM3 (4.50-5.90); RED CELL DISTRIBUTION WIDTH 15.4 % (11.6-17.2); REVIEW FLAG FINAL; WHITE BLOOD COUNT 11.7 TH/MM3 (4.0-11.0)
[2016-08-19] MEDS: CHLORHEXIDINE GLUCONATE 2 % 1 PACK (2 CLOTHS) TOP SCH (04:48)
[2016-08-19 04:49] LABS: POTASSIUM 4.3 MEQ/L (3.5-5.1)
[2016-08-19 05:32] LABS: BLOOD GAS BASE EXCESS -1.4 mmol/L (-2-2); BLOOD GAS CARBOXYHEMOGLOBIN 0.9 % (0-4); BLOOD GAS HCO3 24 mmol/L (22-26); BLOOD GAS METHEMOGLOBIN 0.9 % (0-2); BLOOD GAS O2 HGB SATURATION 92 % (90-100); BLOOD GAS OXYGEN CONTENT 16.8 Vol % (12.0-20.0); BLOOD GAS PCO2 48 mmHg (38-42); BLOOD GAS PO2 75 mmHg (61-120); BLOOD GAS TOTAL HGB 12.9 G/DL (12.0-16.0); CRITICAL VALUE NO; OXYGEN DEVICE VENTILATOR; TEMP CORR TO 98.6
[2016-08-19 05:33] LABS: DRAW SITE LT RADIAL; FIO2 40 %; NUMBER OF ARTERIAL PUNCTURES 2; STAT NO; ULNAR PULSE PRESENT; VENT SETTINGS PRVC/AC
[2016-08-19] MEDS: ENOXAPARIN SODIUM 40 MG/0.4 ML SYRINGE SQ SCH (05:57)
[2016-08-19] MEDS: CHLORHEXIDINE 0.12% (ORAL KIT) 15 ML CUP MT SCH ×2 (08:00→20:00)
[2016-08-19] MEDS: SODIUM CHLORIDE 0.9% FLUSH 5 ML FLUSH IV FLUSH SCH ×2 (08:26→20:41)
[2016-08-19] MEDS: PANTOPRAZOLE SODIUM 40 MG VIAL IV SCH (08:26)
[2016-08-19] MEDS: DOCUSATE SODIUM 50 MG/SENNA 8.6 MG TAB PO SCH ×2 (08:27→20:41)
[2016-08-19] MEDS ORDERED: methylPREDNISolone SOD SUCC 125 MG/2 ML VIAL IV PUSH SCH (09:00)
[2016-08-19] MEDS: RESP: ALBUTEROL 2.5 MG/IPRATROPIUM 0.5 MG NEB (SCH) INH ×4 (09:57→20:25)
--- NOTE | 2016-08-19 15:33 | HHI.CCPN ---
Subjective Remarks/Hospital Course This is a 65-year-old male who has a remote prior smoking history and a history of hypertension who presents with a few day history of mild dyspnea followed by severe dyspnea today who presented to the emergency room with severe shortness of breath. He endorses a cough, but denied fever, chills. Denied abdominal pain, nausea, vomiting, constipation, diarrhea. He was otherwise in his usual state of health. He was active today and per his [id number] he babysat his grandchildren. The patient was initially trialed on BiPAP but failed for acute dyspnea and hypoxia and was intubated in the emergency department. He was awake enough on my evaluation that he could nod to answer questions, but was still on sedation and so the remainder the history was very difficult to obtain. Critical care medicine is consult to evaluate his acute hypoxic failure. Of note, the patient did convey to me that he recently seen a outpatient physician and was given steroids for this shortness of breath. He does not have a documented history of COPD, but does have a remote long history of smoking. 08/19: Able to extubate today, breathing comfortably. Objective Vital Signs Date Time Temp Pulse Resp B/P Pulse Ox O2 Delivery O2 Flow Rate FiO2 08/19/16 14:00 80 08/19/16 12:35 95 Nasal Cannula 4 08/19/16 12:05 40 08/19/16 12:00 98.2 13 108/65 Result Diagram: 08/19/16 0343 08/19/16 0343 Other Results Microbiology Date/Time Procedure Status Source Growth 08/19/16 04:40 Influenza Types A,B Antigen (ALBERTO) - Final Complete Nasal Aspirate NEGATIVE FOR FLU A AND B ANTIGEN.... Laboratory Tests Test 08/18/16 08/19/16 22:30 05:19 Blood Gas Puncture Site RT RADIAL LT RADIAL Blood Gas Patient Temperature 98.6 98.6 Venous Blood pH 7.21 (7.360-7.400) Venous Blood Partial Pressure 66 mmHg (44-48) CO2 Venous Blood Partial Pressure 42 mmHg (35-40) O2 Venous Blood HCO3 25 mmol/L (22-26) Venous Blood Oxygen Saturation 64 % (70-76) Venous Blood Oxygen Content 11.6 Vol % (9.0-17.0) Venous Blood Base Excess -1.8 mmol/L (-2-2) Oxygen Delivery Device VENTILATOR VENTILATOR Blood Gas Ventilator Setting PRVC/AC PRVC/AC Blood Gas Inspired Oxygen 50 % 40 % Blood Gas HCO3 24 mmol/L (22-26) Blood Gas Base Excess -1.4 mmol/L (-2-2) Blood Gas Oxygen Saturation 92 % (90-100) Arterial Blood pH 7.32 (7.380-7.420) Arterial Blood Partial 48 mmHg (38-42) Pressure CO2 Arterial Blood Partial 75 mmHg Pressure O2 (61-120) Arterial Blood Oxygen Content 16.8 Vol % (12.0-20.0) Arterial Blood 0.9 % (0-4) Carboxyhemoglobin Arterial Blood Methemoglobin 0.9 % (0-2) Blood Gas Hemoglobin 12.9 G/DL (12.0-16.0) Imaging Chest x-ray 08/18: No acute abnormalities CT pulmonary angiogram 08/18: Negative for acute PE. Objective Remarks GENERAL: Middle-aged male, lying in bed HEENT: Normocephalic. Atraumatic. NECK: Trachea is midline. Airway widely patent. CHEST: Equal chest rise. Clear olivier. CARDIOVASCULAR: Normal rate, regular rhythm. No appreciable murmurs. ABDOMEN: Nontender, nondistended. No guarding. MUSCULOSKELETAL: No peripheral edema. Well perfused. NEUROLOGICAL: Conversant. Follows commands in all 4 extremities. A/P Assessment and Plan Plan by systems: Neurologic: Agitation associated with mechanical ventilation Propofol and fentanyl for goal RASS -2 Respiratory: Acute hypoxic and hypercarbic respiratory failure COPD exacerbation Possible community-acquired pneumonia Low tidal volume ventilation targeting 6 cc/kg ideal body weight Wean FiO2 for goal SPO2 greater than 90% Vent bundle Head of bed at 30 Methylprednisolone 60 mg IV every 12 Nebs every 4 and every 2 when necessary Does not meet SBT criteria today for acute hypoxia CT pulmonary angiogram 08/18: Negative for PE Cardiovascular: Continue telemetry Maintenance fluids LR 150 cc an hour LR bolus 1 L now Renal: Victor catheter for accurate I's and O's -- Strict I/Os FEN/GI: Maintenance fluids as above ICU electrolyte protocol Daily BMP Nothing by mouth for now Heme/ID: Possible community-acquired pneumonia COPD exacerbation We'll obtain flu swab Follow-up blood, sputum cultures Levaquin 750 mg IV 24 hours Daily CBC Endocrine: Hyperglycemia of critical illness -- SSI, every 6 hours, medium scale Prophylaxis: GI Prophylaxis Protonix 40 mg IV daily 24 hours DVT Prophylaxis -- SCDs Lovenox 40 mg IV daily 24 hours Lines: Peripheral IVs Valente Overall impression: Resolved COPD exacerbation. Alberto Leos MD Aug 19, 2016 15:33
[2016-08-19] MEDS ORDERED: LISI20TA PO (18:33)
--- NOTE | 2016-08-19 20:32 | MB ---
cc: Ashley STYLES M.D. DATE OF CONSULTATION 08/19/16 REASON FOR CONSULTATION COPD and respiratory failure. HISTORY OF PRESENT ILLNESS This is a 65-hour-old man with a prior history of chronic bronchitis who has been experiencing cough, shortness of breath, wheezing and chest congestion for the past 2-3 weeks. The patient was seen as an outpatient by his family doctor and given an antibiotic and also was on a tapering dose of prednisone as well as a cough medicine. The patient states he was doing okay for about a week and then two days ago, he started to have some dryness in his throat and increasing chest tightness, unable to bring up any sputum and went into severe respiratory distress yesterday and had to be brought to the hospital by [facility]. Following admission, however, the patient was in acute respiratory failure and needed to be intubated urgently and placed on ventilator support. A CT pulmonary angiogram was done which was negative for PE. The patient was given IV steroids, IV antibiotics and now he is extubated and doing better and on a nasal cannula at 3 liters. He complains of some chest tightness. No hemoptysis. No fevers or chills and denies nausea, vomiting or aspiration. PAST MEDICAL HISTORY 1. History of recurrent bronchitis and asthmatic attacks and apparently he has previously been on an inhaler but does not go for regular follow-ups. 2. He has history of mild hypertension PAST SURGICAL HISTORY Left shoulder arthroplasty. HABITS The patient smoked a half to one-pack per day for about 30 years and then quit. No significant alcohol since 11 years. FAMILY HISTORY Significant for carcinoma of the lung in his father and he also had some brain cancer. ALLERGIES No drug allergies are listed. REVIEW OF SYSTEMS The patient has lost some weight. She has postnasal drip, cough, wheezing, chest congestion, epigastric distress and reflux. Denies any leg or calf muscle pains. He has some joint pains. Of his extremities and has had no skin lesions. PHYSICAL EXAMINATION GENERAL: This is a thinly built middle-aged white male who is alert in no acute distress. VITAL SIGNS: Blood pressure 130/75, pulse 80, respirations 24, temperature 98.2 HEENT: Head normocephalic. Pupils are reactive. Tongue moist. Throat is injected. Ears no inflammation. NECK: Supple without bruits, no thyroid enlargement. CHEST: Equal movements with wheezes scattered bilaterally with prolonged expirations. Occasional crackles at the right base. CARDIAC: Heart sounds are irregular, S1-S2 with no murmur. No S3 gallop. Abdomen: Soft, protuberant without masses. No organomegaly or tenderness. Bowel sounds are active. EXTREMITIES: No edema or lesions. No calf tenderness. NEUROLOGIC: Reflexes are 1+ with no gross motor deficits. Cranial nerves grossly intact. RECTAL: Exam is deferred. SKIN: No lesions. IMPRESSION 1. Acute respiratory failure resolved 2. COPD with chronic bronchitis and asthma 3. History of hypertension PLAN The patient will be maintained on antibiotic coverage as ordered including Levaquin 750 mg daily, nebulized DuoNeb solution q.4 h also placed on Breo Ellipta 100/25 micrograms 1 puff daily. A pulmonary function study to be done at the bedside in the a.m. Repeat chest x-ray. Sputum will be sent for gram stain and culture. The patient was advised that he will be weaned off the oxygen hopefully over the next 24-48 hours. Thank you, Dr. Suarez, for this consultation. MD ARNAV Vanegas/ /6:42 PM /8:17 PM
--- NOTE | 2016-08-19 21:04 | EKG ---
Date Performed: 08/18/2016 Time Performed: 21:59:48 PTAGE: 65 years EKG: SINUS TACHYCARDIA ABNORMAL RHYTHM ECG NO PREVIOUS TRACING DOCTOR: Parrish Baker Interpretating Date/Time 08/19/2016 21:01:11
[2016-08-20] VITALS (13 sets, daily range): BP systolic 111–135; BP diastolic 59–68; PULSE 75–99; RESP 15–26; TEMP 98.2–98.9; O2SAT 92–100
[2016-08-20] MEDS: RESP: ALBUTEROL 2.5 MG/IPRATROPIUM 0.5 MG NEB (SCH) INH ×5 (00:08→15:34)
[2016-08-20] MEDS: methylPREDNISolone SOD SUCC 125 MG/2 ML VIAL IV PUSH SCH ×5 (01:17→20:27)
[2016-08-20] MEDS: LEVOFLOXACIN 750 MG PREMIX INJ 150 ML IV SCH ×2 (01:17→23:58)
[2016-08-20] MEDS: LACTATED RINGER'S 1000 ML INJ 1,000 ML IV SCH ×2 (01:17→06:10)
[2016-08-20] MEDS: CHLORHEXIDINE GLUCONATE 2 % 1 PACK (2 CLOTHS) TOP SCH (04:00)
[2016-08-20 04:04] LABS: HEMATOCRIT 36.5 % (39.0-51.0); MEAN CELL VOLUME 86.3 FL (80.0-100.0); MEAN CORPUSCULAR HEMOGLOBIN 28.3 PG (27.0-34.0); MEAN CORPUSCULAR HGB CONC 32.8 % (32.0-36.0); PLATELET COUNT 283 TH/MM3 (150-450); RED BLOOD COUNT 4.23 MIL/MM3 (4.50-5.90); RED CELL DISTRIBUTION WIDTH 15.1 % (11.6-17.2); REVIEW FLAG FINAL; WHITE BLOOD COUNT 13.7 TH/MM3 (4.0-11.0)
[2016-08-20 04:45] LABS: BICARBONATE 29.4 MEQ/L (21.0-32.0); POTASSIUM 4.3 MEQ/L (3.5-5.1)
[2016-08-20 05:24] LABS: BLOOD GAS BASE EXCESS 2.2 mmol/L (-2-2); BLOOD GAS CARBOXYHEMOGLOBIN 1.1 % (0-4); BLOOD GAS HCO3 27 mmol/L (22-26); BLOOD GAS METHEMOGLOBIN 0.9 % (0-2); BLOOD GAS O2 HGB SATURATION 93 % (90-100); BLOOD GAS PCO2 45 mmHg (38-42); BLOOD GAS PO2 79 mmHg (61-120); BLOOD GAS TOTAL HGB 12.1 G/DL (12.0-16.0); CRITICAL VALUE NO; DRAW SITE RT RADIAL; LITER FLOW 2 L/M; NUMBER OF ARTERIAL PUNCTURES 1; STAT NO; TEMP CORR TO 98.6; ULNAR PULSE PRESENT
--- NOTE | 2016-08-20 05:56 | RADRPT ---
EXAM DATE/TIME: 08/20/2016 04:16 [facility] COMPARISON: CHEST SINGLE AP, August 18, 2016, 21:33. INDICATIONS : Please evaluate after respiratory failure. MEDICAL HISTORY : Chronic obstructive pulmonary disease. SURGICAL HISTORY : None. ENCOUNTER: Subsequent ACUITY: 2 days PAIN SCORE: Non-responsive. LOCATION: Bilateral chest FINDINGS: There is prominence of the perivascular markings with crowding of the bronchovascular markings may be due to expiratory state of this radiograph, however slight interstitial process is not excluded.Hear t and mediastinum are unremarkable for technique. Chronic degenerative changes are present in the rig ht shoulder and not changed. The examination is slightly limited due to motion artifact. CONCLUSION: Haziness to the perivascular structures bilaterally possibly technical. Trent Palomino MD on August 20, 2016 at 5:54 Board Certified Radiologist. This report was verified electronically.
[2016-08-20] MEDS: INSULIN NovoLIN REGULAR SUPPLEMENTAL SCALE SQ SCH ×5 (06:00→23:59)
[2016-08-20] MEDS: ENOXAPARIN SODIUM 40 MG/0.4 ML SYRINGE SQ SCH (06:23)
[2016-08-20] MEDS: CHLORHEXIDINE 0.12% (ORAL KIT) 15 ML CUP MT SCH ×2 (08:00→20:00)
[2016-08-20] MEDS: FLUTICASONE 100 MCG/VILANTEROL 25 MCG INHALER INH SCH (08:42)
[2016-08-20] MEDS: PANTOPRAZOLE SODIUM 40 MG VIAL IV SCH (08:42)
[2016-08-20] MEDS: SODIUM CHLORIDE 0.9% FLUSH 5 ML FLUSH IV FLUSH SCH ×2 (08:42→20:17)
[2016-08-20] MEDS: DOCUSATE SODIUM 50 MG/SENNA 8.6 MG TAB PO SCH ×2 (08:43→20:16)
[2016-08-20] MEDS ORDERED: INFLUENZA VIRUS VACCINE (QUADRIVALENT) 0.5 ML SYR IM ONE (10:00)
--- NOTE | 2016-08-20 12:07 | HHI.CCPN ---
Subjective Remarks/Hospital Course This is a 65-year-old male who has a remote prior smoking history and a history of hypertension who presents with a few day history of mild dyspnea followed by severe dyspnea today who presented to the emergency room with severe shortness of breath. He endorses a cough, but denied fever, chills. Denied abdominal pain, nausea, vomiting, constipation, diarrhea. He was otherwise in his usual state of health. He was active today and per his [id number]-oin he babysat his grandchildren. The patient was initially trialed on BiPAP but failed for acute dyspnea and hypoxia and was intubated in the emergency department. He was awake enough on my evaluation that he could nod to answer questions, but was still on sedation and so the remainder the history was very difficult to obtain. Critical care medicine is consult to evaluate his acute hypoxic failure. Of note, the patient did convey to me that he recently seen a outpatient physician and was given steroids for this shortness of breath. He does not have a documented history of COPD, but does have a remote long history of smoking. 08/19: Able to extubate today, breathing comfortably. 08/20: Requiring supple O2. Dr. Sparrow managing respiratory function. Objective Vital Signs Date Time Temp Pulse Resp B/P Pulse Ox O2 Delivery O2 Flow Rate FiO2 08/20/16 10:00 75 08/20/16 08:53 95 Nasal Cannula 2.00 08/20/16 08:00 98.3 26 119/61 08/19/16 12:05 40 Intake and Output 08/19/16 08/19/16 08/20/16 08:00 16:00 00:00 Intake Total 1332 ml 1295 ml 1340 ml Output Total 1300 ml 1350 ml 1600 ml Balance 32 ml -55 ml -260 ml Result Diagram: 08/20/16 0336 08/20/16 0336 Other Results Microbiology Date/Time Procedure Status Source Growth 08/19/16 04:40 Influenza Types A,B Antigen (ALBERTO) - Final Complete Nasal Aspirate NEGATIVE FOR FLU A AND B ANTIGEN.... Laboratory Tests Test 08/20/16 05:14 Blood Gas Puncture Site RT RADIAL Blood Gas Patient Temperature 98.6 Blood Gas HCO3 27 mmol/L (22-26) Blood Gas Base Excess 2.2 mmol/L (-2-2) Blood Gas Oxygen Saturation 93 % (90-100) Arterial Blood pH 7.39 (7.380-7.420) Arterial Blood Partial 45 mmHg (38-42) Pressure CO2 Arterial Blood Partial 79 mmHg Pressure O2 (61-120) Arterial Blood Oxygen Content 16.0 Vol % (12.0-20.0) Arterial Blood 1.1 % (0-4) Carboxyhemoglobin Arterial Blood Methemoglobin 0.9 % (0-2) Blood Gas Hemoglobin 12.1 G/DL (12.0-16.0) Blood Gas Liter Flow 2 L/M Imaging Chest x-ray 08/18: No acute abnormalities CT pulmonary angiogram 08/18: Negative for acute PE. Objective Remarks GENERAL: Middle-aged male, calm HEENT: Normocephalic. Atraumatic. NECK: Airway widely patent. CHEST: Equal chest rise. Clear olivier with light wheezes. CARDIOVASCULAR: Normal rate, regular rhythm. No appreciable murmurs. ABDOMEN: Nontender, nondistended. No guarding. MUSCULOSKELETAL: No peripheral edema. Well perfused. NEUROLOGICAL: Conversant. Follows commands in all 4 extremities. O X 3. A/P Assessment and Plan Plan by systems: Neurologic: NA Respiratory: Acute hypoxic and hypercarbic respiratory failure COPD exacerbation Possible community-acquired pneumonia Wean FiO2 for goal SPO2 greater than 90% -Levaquin Cardiovascular: Continue telemetry Renal: d/c Victor catheter for accurate I's and O's -- Strict I/Os FEN/GI: Maintenance fluids as above ICU electrolyte protocol Daily BMP Nothing by mouth for now Heme/ID: Possible community-acquired pneumonia COPD exacerbation We'll obtain flu swab Follow-up blood, sputum cultures Levaquin 750 mg IV 24 hours Daily CBC Endocrine: Hyperglycemia of critical illness -- SSI, every 6 hours, medium scale Prophylaxis: GI Prophylaxis Protonix 40 mg IV daily 24 hours DVT Prophylaxis -- SCDs Lovenox 40 mg IV daily 24 hours Lines: Peripheral IVs Victor Overall impression: Resolved COPD exacerbation. Home when sats improved. Alberto Leos MD Aug 20, 2016 12:07
--- NOTE | 2016-08-20 18:10 | HHI.PR ---
Subjective Remarks He is better today. Less wheezing. Coughs up little sputum. No Fever. Objective Vital Signs Date Time Temp Pulse Resp B/P Pulse Ox O2 Delivery O2 Flow Rate FiO2 08/20/16 16:12 87 08/20/16 15:38 Nasal Cannula 2.00 08/20/16 15:20 98.2 99 20 135/68 95 08/20/16 14:00 90 08/20/16 12:00 90 08/20/16 12:00 98.5 90 22 114/61 92 08/20/16 10:00 75 08/20/16 08:53 95 Nasal Cannula 2.00 08/20/16 08:00 98.3 88 26 119/61 95 08/20/16 08:00 78 08/20/16 07:00 95 Nasal Cannula 2.00 08/20/16 06:00 91 08/20/16 04:00 75 08/20/16 04:00 98.9 75 15 122/62 100 08/20/16 02:00 78 08/20/16 00:00 75 08/20/16 00:00 98.2 78 15 117/59 97 08/19/16 22:00 89 08/19/16 20:00 85 08/19/16 20:00 98.7 98 18 113/64 97 08/19/16 19:00 96 Nasal Cannula 2.00 I/O 08/19/16 08/19/16 08/19/16 08/20/16 08/20/16 08/20/16 07:00 15:00 23:00 07:00 15:00 23:00 Intake Total 1332 ml 1295 ml 1340 ml 1453 ml 1193 ml Output Total 1300 ml 1350 ml 1600 ml 1700 ml 750 ml Balance 32 ml -55 ml -260 ml -247 ml 443 ml Intake Oral 250 ml 250 ml IV Total 1332 ml 1295 ml 1340 ml 1203 ml 943 ml Output Urine Total 1300 ml 1350 ml 1600 ml 1700 ml 750 ml # Bowel Movements 0 Result Diagram: 08/20/16 0336 08/20/16 0336 Objective Remarks GENERAL: This is a thinly built middle-aged white male who is alert in no acute distress. HEENT: Head normocephalic. Pupils are reactive. Tongue moist. Throat is injected. Ears no inflammation. NECK: Supple without bruits, no thyroid enlargement. CHEST: Equal movements with wheezes scattered bilaterally with prolonged expirations. crackles at the right base. CARDIAC: Heart sounds are irregular, S1-S2 with no murmur. No S3 gallop. Abdomen: Soft, protuberant without masses. No organomegaly or tenderness. Bowel sounds are active. EXTREMITIES: No edema or lesions. No calf tenderness. NEUROLOGIC: Reflexes are 1+ with no gross motor deficits. Cranial nerves grossly intact. RECTAL: Exam is deferred. SKIN: No lesions. Assessment and Plan Assessment and Plan IMPRESSION 1. Acute respiratory failure resolved 2. COPD with chronic bronchitis and asthma 3. History of hypertension Plan : 1. Cont Antibiotic. 2. taper solumedrol to 40 mg IV q8h. 3. Nebs qid , duoneb 4. PFT on Tuesday. 5. Add Breo Ellipta 100 Mcg , 1 puff daily 6. Transfer to [facility]. Ashley Obregon MD Aug 20, 2016 18:10
[2016-08-21] VITALS (12 sets, daily range): BP systolic 106–138; BP diastolic 63–81; PULSE 75–95; RESP 16–20; TEMP 98–98.7; O2SAT 93–98
[2016-08-21] MEDS: RESP: ALBUTEROL 2.5 MG/IPRATROPIUM 0.5 MG NEB (SCH) INH ×7 (00:03→23:37)
[2016-08-21] MEDS: CHLORHEXIDINE GLUCONATE 2 % 1 PACK (2 CLOTHS) TOP SCH (04:00)
[2016-08-21] MEDS: INSULIN NovoLIN REGULAR SUPPLEMENTAL SCALE SQ SCH ×3 (05:11→17:24)
[2016-08-21] MEDS: ENOXAPARIN SODIUM 40 MG/0.4 ML SYRINGE SQ SCH (05:13)
[2016-08-21] MEDS: methylPREDNISolone SOD SUCC 125 MG/2 ML VIAL IV PUSH SCH ×3 (05:13→21:20)
[2016-08-21 07:26] LABS: HEMATOCRIT 38.2 % (39.0-51.0); MEAN CELL VOLUME 86.7 FL (80.0-100.0); MEAN CORPUSCULAR HEMOGLOBIN 28.3 PG (27.0-34.0); MEAN CORPUSCULAR HGB CONC 32.6 % (32.0-36.0); PLATELET COUNT 296 TH/MM3 (150-450); RED BLOOD COUNT 4.41 MIL/MM3 (4.50-5.90); RED CELL DISTRIBUTION WIDTH 14.9 % (11.6-17.2); REVIEW FLAG FINAL; WHITE BLOOD COUNT 12.8 TH/MM3 (4.0-11.0)
[2016-08-21 07:48] LABS: BICARBONATE 27.5 MEQ/L (21.0-32.0); POTASSIUM 4.2 MEQ/L (3.5-5.1)
[2016-08-21] MEDS: DOCUSATE SODIUM 50 MG/SENNA 8.6 MG TAB PO SCH ×2 (09:00→21:20)
[2016-08-21] MEDS ORDERED: NON-FORMULARY DRUG (Lisinopril-Hctz 1 TAB) PO SCH (09:00)
[2016-08-21] MEDS: LISINOPRIL 20 MG TAB PO SCH (09:53)
[2016-08-21] MEDS: PANTOPRAZOLE SODIUM 40 MG VIAL IV SCH (09:54)
[2016-08-21] MEDS: HYDROCHLOROTHIAZIDE 25 MG TAB PO SCH (09:54)
[2016-08-21] MEDS: FLUTICASONE 100 MCG/VILANTEROL 25 MCG INHALER INH SCH (09:55)
--- NOTE | 2016-08-21 12:56 | HHI.PR ---
Subjective Remarks The patient says he feels well. He said he had a similar episode 2 years ago for which he was hospitalized. He says he has been ambulating and feels good while doing so. He has been having bowel movements. He doesn't feel weak. He has been tolerating a diet. He doesn't smoke. He has had some sick contacts at work. He has a shorthaired cat. Objective Vitals Vital Signs Date Time Temp Pulse Resp B/P Pulse Ox O2 Delivery O2 Flow Rate FiO2 08/21/16 12:00 98.6 85 20 122/66 95 08/21/16 08:58 97 21 08/21/16 08:00 98.4 78 16 138/73 98 08/21/16 04:14 95 Nasal Cannula 2.00 08/21/16 04:00 98.0 87 16 137/81 94 08/21/16 00:06 95 Nasal Cannula 2.00 08/21/16 00:04 95 Nasal Cannula 2.00 08/21/16 00:00 98.1 78 16 130/73 94 08/20/16 20:00 98.4 85 15 111/60 93 08/20/16 20:00 86 08/20/16 19:58 93 Nasal Cannula 2.00 08/20/16 19:30 Nasal Cannula 2.00 08/20/16 16:12 87 08/20/16 15:38 Nasal Cannula 2.00 08/20/16 15:20 98.2 99 20 135/68 95 08/20/16 14:00 90 I/O 08/20/16 08/20/16 08/20/16 08/21/16 08/21/16 08/21/16 07:00 15:00 23:00 07:00 15:00 23:00 Intake Total 1453 ml 1193 ml 520 ml 120 ml Output Total 1700 ml 750 ml 350 ml 500 ml Balance -247 ml 443 ml 170 ml -380 ml Intake Oral 250 ml 250 ml 520 ml 120 ml IV Total 1203 ml 943 ml Output Urine Total 1700 ml 750 ml 350 ml 500 ml Result Diagram: 08/21/16 0530 08/21/16 0530 Imaging Last Impressions Chest X-Ray 08/20/16 0600 Signed Impressions: Service Date/Time: Saturday, August 20, 2016 04:16 - CONCLUSION: Haziness to the perivascular structures bilaterally possibly technical. Trent Palomino MD CT Angiography 08/19/162122 Signed Impressions: Service Date/Time: August 01:29 - CONCLUSION: No evidence of pulmonary embolism Robert Mendez MD Objective Remarks GENERAL: Resting comfortably. HEENT: Normocephalic. Atraumatic. NECK: Airway widely patent. CHEST: Equal chest rise. Bilateral wheezing and scattered rhonchi. CARDIOVASCULAR: Normal rate, regular rhythm. No appreciable murmurs. ABDOMEN: Nontender, nondistended. No guarding. MUSCULOSKELETAL: No peripheral edema. Well perfused. NEUROLOGICAL: Alert and oriented. Motor strength 5 out of 5 in the upper and lower extremities. PSYCH: Mood and affect appropriate. Procedures Intubation/ extubation Medications and IVs Current Medications Medications (Trade) Dose Ordered Sig/Jacob Route Start Time Stop Time Status Last Admin (Diprivan 1000 Mg/100ml Inj) 100 ml @ 0 mls/hr TITRATE IV 08/18/16 23:30 08/19/16 09:41 Magnesium Oxide 800 mg 800 mg UNSCH PRN PO 08/18/16 23:30 Magnesium Sulfate 4 gm/Sodium Chloride 100 ml @ 50 mls/hr UNSCH PRN IV 08/18/16 23:30 Magnesium Sulfate 2 gm/Sodium Chloride 100 ml @ 50 mls/hr UNSCH PRN IV 08/18/16 23:30 Potassium Chloride 100 ml @ 50 mls/hr Q2H PRN IV 08/18/16 23:30 Potassium Chloride 100 ml @ 50 mls/hr Q2H PRN IV 08/18/16 23:30 Potassium Chloride 100 ml @ 50 mls/hr Q2H PRN IV 08/18/16 23:30 (KCl 40 Meq Premix Inj) 100 ml @ 25 mls/hr UNSCH PRN IV 08/18/16 23:30 (KCl 40 Meq/30 ml Liq) 40 meq UNSCH PRN PO/TUBE 08/18/16 23:30 (KCl 40 Meq/30 ml Liq) 40 meq UNSCH PRN PO/TUBE 08/18/16 23:30 (K-Phos) 2,000 mg Q4H PRN PO 08/18/16 23:30 Potassium Phosphate 2000 mg 2,000 mg UNSCH PRN PO/TUBE 08/18/16 23:30 Potassium Phosphate 30 mmol/ Sodium Chloride 260 ml @ 42 mls/hr UNSCH PRN IV 08/18/16 23:30 (Sodium Phosphate Inj/NS 250 ml Inj) 250 ml @ 42 mls/hr UNSCH PRN IV 08/18/16 23:30 (D50w (Vial) Inj) 25 ml UNSCH PRN IV PUSH 08/18/16 23:30 (NovoLIN R SUPPLEMENTAL SCALE) 1 Q6HR SQ 08/19/16 00:00 08/20/16 17:09 (NS Flush) 2 ml UNSCH PRN IV FLUSH 08/18/16 23:30 (NS Flush) 2 ml BID IV FLUSH 08/19/16 09:00 08/20/16 20:17 (Protonix Inj) 40 mg DAILY IV 08/19/16 09:00 08/21/16 09:54 (Zofran Inj) 4 mg Q6H PRN IV 08/18/16 23:30 (Lety-Colace) 2 tab BID PO 08/19/16 09:00 08/20/16 20:16 Miscellaneous Information 1 Q361D XX 08/18/16 23:30 08/19/16 03:15 (Chlorhexidine 2% Cloth) 3 pack Taper DAILY@04 TOP 08/19/16 04:00 08/15/17 03:59 08/19/16 04:48 (Chlorhexidine 2% Cloth) 3 pack UNSCH PRN TOP 08/18/16 23:30 Chlorhexidine Gluconate 15 ml 15 ml BID@08,20 MT 08/19/16 08:00 08/19/16 08:00 (Levaquin 750 Mg Premix Inj) 150 ml @ 100 mls/hr Q24H IV 08/19/16 00:00 08/20/16 23:58 (Lovenox Inj) 40 mg Q24H SQ 08/19/16 06:00 08/21/16 05:13 (Breo Ellipta 100-25 Inh) 1 puff DAILY INH 08/20/16 09:00 08/21/16 09:55 (Prinivil) 20 mg DAILY PO 08/21/16 09:00 08/21/16 09:53 (Hydrodiuril) 12.5 mg DAILY PO 08/21/16 09:00 08/21/16 09:54 (SoluMEDROL INJ) 40 mg Q8HR IV PUSH 08/20/16 22:00 08/21/16 05:13 A/P Assessment and Plan Acute hypercarbic respiratory failure The pt was intubated for a severe COPD exacerbation. He was extubated and is currently doing well on room air. Appreciate pulmonology consult. Blood cultures NGTD. Sputum culture with normal gerson. - continue nebs and oxygen. - Levaquin. - incentive spirometry. - continue Solumedrol. Wean as tolerated. - home oxygen walk test. - Brio Ellipta per pulmonology. Hyperglycemia S/t steroids. - insulin sliding scale. - wean steroids. HTN On HCTZ/lisinopril as an outpt. Well controlled 08/21. - continue home meds. PPx: Lovenox. Discharge Planning Anticipate d/c home in 1-2 days. Gustavo Henao DO Aug 21, 2016 12:56
[2016-08-21] MEDS: SODIUM CHLORIDE 0.9% FLUSH 5 ML FLUSH IV FLUSH SCH ×2 (14:18→21:21)
[2016-08-21] MEDS: guaiFENesin E.R. 600 MG TAB PO SCH (21:20)
[2016-08-22] VITALS: BP 124/67; PULSE 74; RESP 20; TEMP 98.4; O2SAT 99
[2016-08-22] MEDS: LEVOFLOXACIN 750 MG PREMIX INJ 150 ML IV SCH (00:51)
[2016-08-22] MEDS: INSULIN NovoLIN REGULAR SUPPLEMENTAL SCALE SQ SCH ×2 (00:56→04:53)
[2016-08-22] MEDS: RESP: ALBUTEROL 2.5 MG/IPRATROPIUM 0.5 MG NEB (SCH) INH ×2 (03:47→09:32)
[2016-08-22 04:00] VITALS: BP 126/71; PULSE 81; RESP 20; TEMP 97.8; O2SAT 95
[2016-08-22] MEDS: ENOXAPARIN SODIUM 40 MG/0.4 ML SYRINGE SQ SCH (04:54)
[2016-08-22] MEDS: methylPREDNISolone SOD SUCC 125 MG/2 ML VIAL IV PUSH SCH (04:56)
[2016-08-22 08:00] VITALS: BP 123/72; PULSE 69; PULSE 72; RESP 20; TEMP 98.3; O2SAT 94
[2016-08-22] MEDS: HYDROCHLOROTHIAZIDE 25 MG TAB PO SCH (08:12)
[2016-08-22] MEDS: guaiFENesin E.R. 600 MG TAB PO SCH (08:12)
[2016-08-22] MEDS: LISINOPRIL 20 MG TAB PO SCH (08:12)
[2016-08-22] MEDS: FLUTICASONE 100 MCG/VILANTEROL 25 MCG INHALER INH SCH (08:14)
[2016-08-22] MEDS: SODIUM CHLORIDE 0.9% FLUSH 5 ML FLUSH IV FLUSH SCH (08:17)
[2016-08-22] MEDS: DOCUSATE SODIUM 50 MG/SENNA 8.6 MG TAB PO SCH (08:17)
[2016-08-22] MEDS ORDERED: PRED10PA2 PO (09:06)
[2016-08-22] MEDS ORDERED: LEVO750T33 PO (09:06)
[2016-08-22] MEDS ORDERED: GUAI100S5 PO (09:06)
[2016-08-22] MEDS ORDERED: FLUT1INH INH (09:06)
--- NOTE | 2016-08-22 09:07 | HHI.DCPOC ---
Discharge Care Plan Diagnosis: (1) Dyspnea (2) Respiratory distress (3) Acute respiratory failure (4) HTN (hypertension) Goals to Promote Your Health * To prevent worsening of your condition and complications * To maintain your health at the optimal level Directions to Meet Your Goals Take your medications as prescribed Follow your dietary instruction Follow activity as directed Keep your appointments as scheduled Take your immunizations and boosters as scheduled If your symptoms worsen call your PCP, if no PCP go to Urgent Care Center or Emergency Room Smoking is Dangerous to Your Health. Avoid second hand smoke Call the 24-hour hour crisis hotline for domestic abuse at Gustavo Henao DO Aug 22, 2016 09:07
[2016-08-22] MEDS ORDERED: VENTAER INH (09:08)
--- NOTE | 2016-08-22 09:16 | HHI.DS ---
Discharge Summary Admission Date Aug 18, 2016 at 23:38 Discharge Date: Aug 22, 2016 Admitting Diagnosis (1) Acute respiratory failure ICD Code: J96.00 Diagnosis: Principal (2) Dyspnea ICD Code: R06.00 (3) Respiratory distress ICD Code: R06.00 (4) HTN (hypertension) ICD Code: I10 Procedures Intubation/ extubation Brief History - From Admission This is a 65-year-old male who has a remote prior smoking history and a history of hypertension who presents with a few day history of mild dyspnea followed by severe dyspnea today who presented to the emergency room with severe shortness of breath. He endorses a cough, but denied fever, chills. Denied abdominal pain, nausea, vomiting, constipation, diarrhea. He was otherwise in his usual state of health. He was active today and per his [id number] he babysat his grandchildren. The patient was initially trialed on BiPAP but failed for acute dyspnea and hypoxia and was intubated in the emergency department. He was awake enough on my evaluation that he could nod to answer questions, but was still on sedation and so the remainder the history was very difficult to obtain. Critical care medicine is consult to evaluate his acute hypoxic failure. Of note, the patient did convey to me that he recently seen a outpatient physician and was given steroids for this shortness of breath. He does not have a documented history of COPD, but does have a remote long history of smoking CBC/BMP: 08/21/16 0530 08/21/16 0530 Significant Findings Laboratory Tests Test 08/20/16 08/20/16 08/21/16 03:36 05:14 05:30 White Blood Count 13.7 TH/MM3 12.8 TH/MM3 (4.0-11.0) (4.0-11.0) Red Blood Count 4.23 MIL/MM3 4.41 MIL/MM3 (4.50-5.90) (4.50-5.90) Hemoglobin 12.0 GM/DL 12.5 GM/DL (13.0-17.0) (13.0-17.0) Hematocrit 36.5 % 38.2 % (39.0-51.0) (39.0-51.0) Blood Urea Nitrogen 20 MG/DL (7-18) 24 MG/DL (7-18) Estimat Glomerular Filtration 85 ML/MIN (>89) 85 ML/MIN (>89) Rate Random Glucose 127 MG/DL 111 MG/DL (74-106) (74-106) Calcium Level 8.2 MG/DL (8.5-10.1) Blood Gas HCO3 27 mmol/L (22-26) Blood Gas Base Excess 2.2 mmol/L (-2-2) Arterial Blood Partial 45 mmHg (38-42) Pressure CO2 Imaging Last Impressions Chest X-Ray 08/20/16 0600 Signed Impressions: Service Date/Time: Saturday, August 20, 2016 04:16 - CONCLUSION: Haziness to the perivascular structures bilaterally possibly technical. K. Artis Palomino MD CT Angiography [id number]/[id number] Signed Impressions: Service Date/Time: August 01:29 - CONCLUSION: No evidence of pulmonary embolism Robert Mendez MD PE at Discharge GENERAL: Resting comfortably. HEENT: Normocephalic. Atraumatic. NECK: Airway widely patent. CHEST: Minimal wheezing, good air exchange. CARDIOVASCULAR: Normal rate, regular rhythm. No appreciable murmurs. ABDOMEN: Nontender, nondistended. No guarding. MUSCULOSKELETAL: No peripheral edema. Well perfused. NEUROLOGICAL: Alert and oriented. Motor strength 5 out of 5 in the upper and lower extremities. PSYCH: Mood and affect appropriate. Pt update on day of discharge The patient was resting comfortably in bed. He said he had a coughing fit overnight that has since resolved. He felt like he couldn't bring up any mucus. He says he has been ambulating well. He would like to go home. Discussed with nursing and case management. Hospital Course Acute hypercarbic respiratory failure The pt was intubated for a severe COPD exacerbation. He was extubated and is currently doing well on room air. Pulmonology was consulted. Blood cultures with NGTD. Sputum culture with normal gerson. He was continued on nebulizer treatments. He received IV Levaquin and will complete a course of PO Levaquin. He received incentive spirometry. He was continued on Solumedrol and will complete a prednisone taper upon discharge. He will not need oxygen per home oxygen walk test conducted by respiratory therapy. He will be discharged on Brio Ellipta per pulmonology. He will have PFTs done as an outpt. He will follow up with pulmonology as an outpt. He will be given albuterol and guaifenesin with codeine. He received Lovenox for DVT prophylaxis. Pt Condition on Discharge: Stable Discharge Disposition: Discharge Home Discharge Time: <= 30 minutes Discharge Instructions DIET: Follow Instructions for: Heart Healthy Diet Activities you can perform: Regular-No Restrictions Follow up Referrals: PCP Follow-up - 1 Week Pulmonology - 1 Week with Ashley Obregon MD New Orders: PFT PRE/POST W/ABG - 2-3 Days New Medications: Albuterol 18 GM Inh (Ventolin Hfa 18 GM Inh) 90 Mcg/Act Aer 2 PUFF INH Q4H PRN SHORTNESS OF BREATH #1 Ref 0 INHALER Guaifenesin-Codeine Liq (Guaifenesin-Codeine Liq) 100-10 Mg/5 Ml Soln 5 ML PO Q6H PRN COUGH #1 Ref 0 BOTTLE Levofloxacin (Levofloxacin) 750 Mg Tab 750 MG PO DAILY Infection #5 Ref 0 TAB Prednisone (48) 10 mg tab Dose Pack (Prednisone (48) 10 mg tab Dose Pack) 10 Mg Dspk 10 MG PO DIRECTED Inflammation #1 Ref 0 DSPK Fluticasone-Vilanterol Inh (Breo Ellipta Inh) 100-25 Mcg/Act Inh 1 PUFF INH DAILY COPD #2 INHALER Continued Medications: Lisinopril-Hctz (Lisinopril-Hctz) 20-12.5 Mg Tab 1 TAB PO DAILY Blood Pressure Management #30 Ref 0 TAB Gustavo Henao DO Aug 22, 2016 09:16
[2016-08-22 09:33] VITALS: O2SAT 93
[2016-08-22 09:48] LABS: HEMATOCRIT 40.7 % (39.0-51.0); MEAN CELL VOLUME 86.4 FL (80.0-100.0); MEAN CORPUSCULAR HEMOGLOBIN 28.1 PG (27.0-34.0); MEAN CORPUSCULAR HGB CONC 32.5 % (32.0-36.0); PLATELET COUNT 290 TH/MM3 (150-450); RED BLOOD COUNT 4.71 MIL/MM3 (4.50-5.90); RED CELL DISTRIBUTION WIDTH 15.3 % (11.6-17.2); REVIEW FLAG FINAL; WHITE BLOOD COUNT 11.5 TH/MM3 (4.0-11.0)
[2016-08-22 10:11] LABS: POTASSIUM 4.4 MEQ/L (3.5-5.1)
--- NOTE | 2016-09-14 09:04 | RSPPFT ---
DATE OF PROCEDURE: 08/25/16 COMMENTS: Spirometry demonstrates an FEV1 of 1.2 at 36% of predicted, FVC of 2.1 at 49%, FEF 25-75 is 16% of predicted. Post-bronchodilator study demonstrated improvements in the FEV1 and FVC suggesting a response. Lung volumes were not completed. Flow volume loop suggests an obstructive pattern. IMPRESSION: 1. Severe obstructive disease. 2. Significant response to use of bronchodilator indicating reversibility.
== END 2016-08-22 11:10 | disposition home or self-care (01) | DRG 208 ==
LOC: NEPE 21:05 → NEDA 23:38 → N03B 08-19 01:40 → N04A 08-20 15:25
PROVIDERS: ADMIT Hospitalist; ATTEND Hospitalist
PROC: 5A1935Z Respiratory Ventilation, Less than 24 Consecutive Hours (ICD-10-PCS; principal; 2016-08-18)
PROC: 0BH17EZ Insertion of Endotracheal Airway into Trachea, Via Natural or Artificial Opening (ICD-10-PCS; 2016-08-18)
PROC: 5A09357 Assistance with Respiratory Ventilation, Less than 24 Consecutive Hours, Continuous Positive Airway Pressure (ICD-10-PCS; 2016-08-18)
PROC: 0T9B70Z Drainage of Bladder with Drainage Device, Via Natural or Artificial Opening (ICD-10-PCS; 2016-08-18)
DX: J96.01 Acute respiratory failure with hypoxia (principal); J44.1 Chronic obstructive pulmonary disease with (acute) exacerbation; I10 Essential (primary) hypertension; J96.02 Acute respiratory failure with hypercapnia; R73.9 Hyperglycemia, unspecified; J45.909 Unspecified asthma, uncomplicated; Z87.891 Personal history of nicotine dependence; Z96.612 Presence of left artificial shoulder joint; Z80.1 Family history of malignant neoplasm of trachea, bronchus and lung; Z80.8 Family history of malignant neoplasm of other organs or systems; Z23 Encounter for immunization
CPT/HCPCS: 31500; 36600; 51702; 71010; 71275; 80048; 80053; 81001; 82550; 82552; 82805; 82948; 83605; 83735; 83880; 84484; 85025; 85027; 85610; 85730; 87040; 87070; 87205; 87804; 90686; 93005; 94002; 94003; 94060; 94150; 94620; 94640; 94664; 96365; 96375; C9113; J0330; J1650; J1956; J2250; J2930; J3010; J7030; J7120; Q2038; Q9967

== ENCOUNTER 2017-08-20 16:11 | Inpatient (IN) | payer BC, MEDICARE, OTHER ==
[2017-08-20 17:28] LABS: AUTOMATED NEUTROPHIL # 15.6 TH/MM3 (1.8-7.7); BASOPHIL % 0.1 % (0.0-2.0); HEMATOCRIT 40.4 % (39.0-51.0); HEMOGLOBIN 13.8 GM/DL (13.0-17.0); LYMPH % 3.1 % (9.0-44.0); LYMPHOCYTE # 0.5 TH/MM3 (1.0-4.8); MEAN CELL VOLUME 88.4 FL (80.0-100.0); MEAN CORPUSCULAR HEMOGLOBIN 30.1 PG (27.0-34.0); MEAN PLATELET VOLUME 8.1 FL (7.0-11.0); MONO % 7.6 % (0.0-8.0); MONOCYTE # 1.3 TH/MM3 (0-0.9); NEUT % 89.2 % (16.0-70.0); PLATELET COUNT 303 TH/MM3 (150-450); RED BLOOD COUNT 4.57 MIL/MM3 (4.50-5.90); RED CELL DISTRIBUTION WIDTH 13.7 % (11.6-17.2); WHITE BLOOD COUNT 17.5 TH/MM3 (4.0-11.0)
[2017-08-20 17:32] LABS: HEMO FLAGS AUTO DIFF
[2017-08-20] MEDS: SODIUM CHLOR 0.9% 1000 ML INJ 1,000 ML IV ×3 (17:33→19:58)
[2017-08-20] MEDS: ACETAMINOPHEN 325 MG TAB PO (17:35)
[2017-08-20 17:41] LABS: APTT (PATIENT) 29.6 SEC (24.3-30.1); INTERNATIONAL NORMALIZED RATIO 1.2 RATIO; PROTHROMBIN TIME - PATIENT 11.7 SEC (9.8-11.6)
[2017-08-20 17:43] LABS: ALBUMIN 3.4 GM/DL (3.4-5.0); ANION GAP 10 MEQ/L (5-15); AST (GOT) 28 U/L (15-37); BICARBONATE 24.3 MEQ/L (21.0-32.0); BLOOD UREA NITROGEN 50 MG/DL (7-18); CALCIUM 8.5 MG/DL (8.5-10.1); CHLORIDE 97 MEQ/L (98-107); CREATININE 1.88 MG/DL (0.60-1.30); GLOMERULAR FILTRATION RATE 36 ML/MIN (>89); GLUCOSE,RANDOM 122 MG/DL (74-106); POTASSIUM 4.2 MEQ/L (3.5-5.1); SODIUM (NA) 131 MEQ/L (136-145)
[2017-08-20 17:46] LABS: LACTIC ACID SEPSIS PROTOCOL 2.2 mmol/L (0.4-2.0)
[2017-08-20 17:48] LABS: ALKALINE PHOSPHATASE 87 U/L (45-117); ALT (GPT) 34 U/L (12-78); TOTAL BILIRUBIN ADULT 0.6 MG/DL (0.2-1.0); TOTAL PROTEIN 6.8 GM/DL (6.4-8.2); TROPONIN I LESS THAN 0.02 NG/ML (0.02-0.05)
[2017-08-20 18:06] LABS: BANDS 10 % (0-6); LYMPHOCYTES 7 % (9-44); MONOCYTES 8 % (0-8); NEUTROPHIL # MANUAL DIFF 14.9 TH/MM3 (1.8-7.7); POLYS (SEG NEUTROPHILS) 75 % (16-70); WBC DIFF SAMPLE 100
[2017-08-20 18:07] LABS: PLATELET ESTIMATE SMEAR NORMAL (NORMAL); PLATELET MORPHOLOGY NORMAL (NORMAL); SCAN/DIFF FINAL DIFF MANUAL
[2017-08-20] MEDS: methylPREDNISolone SOD SUCC 125 MG/2 ML VIAL IV PUSH (18:15)
[2017-08-20] MEDS: cefTRIAXone INJ 1,000 MG in SODIUM CHLORIDE 0.9% INJ 100 ML IV (18:51)
[2017-08-20] MEDS: OSELTAMIVIR PHOSPHATE 75 MG CAP PO (18:53)
[2017-08-20 19:20] LABS: LACTIC ACID GHOST NOT REPORTABLE
[2017-08-20] MEDS ORDERED: ACETAMINOPHEN 325 MG TAB PO (19:45)
[2017-08-20] MEDS ORDERED: SODIUM CHLOR 0.45% 1000 ML INJ 1,000 ML IV (19:45)
[2017-08-20] MEDS ORDERED: SODIUM CHLORIDE 0.9% FLUSH 10 ML FLUSH IV FLUSH (19:45)
[2017-08-20] MEDS ORDERED: SENNOSIDES 8.6 MG TAB PO (19:45)
[2017-08-20] MEDS ORDERED: MAGNESIUM HYDROXIDE SUSP 30 ML CUP PO (19:45)
[2017-08-20] MEDS: AZITHROMYCIN INJ 500 MG in SODIUM CHLOR 0.9% 250 ML INJ 250 ML IV (19:57)
[2017-08-20] MEDS ORDERED: SODIUM CHLOR 0.9% 1000 ML INJ 1,000 ML IV (20:15)
[2017-08-20] MEDS: RESP: ALBUTEROL 2.5 MG/IPRATROPIUM 0.5 MG NEB (PRN) NEB (20:28)
[2017-08-20 20:48] LABS: LACTIC ACID SEPSIS REPEAT 1.1 mmol/L (0.4-2.0)
[2017-08-20] MEDS: HEPARIN SODIUM - SQ 10,000 UNITS/ML VIAL SQ (22:02)
[2017-08-20] MEDS: LEVOFLOXACIN 750 MG PREMIX INJ 150 ML IV (22:02)
[2017-08-20] MEDS: ONDANSETRON HCL 4 MG/2 ML VIAL IVP (22:03)
[2017-08-20] MEDS: SODIUM CHLORIDE 0.9% FLUSH 10 ML FLUSH IV FLUSH (22:04)
[2017-08-20] MEDS: RESP: ALBUTEROL 2.5 MG/IPRATROPIUM 0.5 MG NEB (SCH) NEB ×2 (22:51→22:52)
[2017-08-20 23:37] LABS: BILIRUBIN, URINE NEG (NEG); BLOOD, URINE NEG (NEG); GLUCOSE,URINE NEG (NEG); KETONE, URINE NEG (NEG); MUCUS URINE FEW /lpf (OCC); NITRITE,URINE NEG (NEG); PH, URINE 5.5 (5.0-8.5); URINE COLOR YELLOW (YELLW/STRAW); URINE LEUKOCYTE ESTERASE NEG (NEG)
[2017-08-20 23:38] LABS: COMMENT (UR) CATH-CULT NOT IND; CULTURE IF INDICATED CATH CULTURE NOT IND
[2017-08-20] MEDS: methylPREDNISolone SOD SUCC 40 MG/1 ML VIAL IV PUSH (23:53)
[2017-08-21] MEDS: SODIUM CHLORID 0.9% 500 ML INJ 500 ML IV (01:32)
[2017-08-21] MEDS: SODIUM CHLOR 0.9% 1000 ML INJ 1,000 ML IV ×5 (01:33→17:42)
[2017-08-21] MEDS: RESP: ALBUTEROL 2.5 MG/IPRATROPIUM 0.5 MG NEB (SCH) NEB ×6 (03:34→23:38)
[2017-08-21] MEDS ORDERED: TERBUTALINE INJ 1 MG/ML AMP SQ (04:15)
[2017-08-21] MEDS: methylPREDNISolone SOD SUCC 40 MG/1 ML VIAL IV PUSH ×2 (04:19→11:14)
[2017-08-21] MEDS: HEPARIN SODIUM - SQ 10,000 UNITS/ML VIAL SQ ×3 (04:19→22:48)
[2017-08-21] MEDS: NOREPINEPHRINE-DEXTROSE DRIP 250 ML IV (04:20)
[2017-08-21 06:24] LABS: AUTOMATED NEUTROPHIL # 20.5 TH/MM3 (1.8-7.7); BASOPHIL % 0.1 % (0.0-2.0); HEMATOCRIT 35.9 % (39.0-51.0); HEMO FLAGS DIFF FINAL; HEMOGLOBIN 11.7 GM/DL (13.0-17.0); LYMPHOCYTE # 0.4 TH/MM3 (1.0-4.8); MEAN CELL VOLUME 88.8 FL (80.0-100.0); MEAN CORPUSCULAR HEMOGLOBIN 28.9 PG (27.0-34.0); MEAN CORPUSCULAR HGB CONC 32.5 % (32.0-36.0); MEAN PLATELET VOLUME 7.8 FL (7.0-11.0); MONO % 2.3 % (0.0-8.0); MONOCYTE # 0.5 TH/MM3 (0-0.9); NEUT % 95.6 % (16.0-70.0); PLATELET COUNT 258 TH/MM3 (150-450); RED BLOOD COUNT 4.05 MIL/MM3 (4.50-5.90); WHITE BLOOD COUNT 21.5 TH/MM3 (4.0-11.0)
[2017-08-21 06:37] LABS: ANION GAP 9 MEQ/L (5-15); BICARBONATE 22.6 MEQ/L (21.0-32.0); BLOOD UREA NITROGEN 39 MG/DL (7-18); CALCIUM 7.9 MG/DL (8.5-10.1); CHLORIDE 105 MEQ/L (98-107); GLOMERULAR FILTRATION RATE 47 ML/MIN (>89); GLUCOSE,RANDOM 168 MG/DL (74-106); POTASSIUM 3.8 MEQ/L (3.5-5.1); SODIUM (NA) 137 MEQ/L (136-145)
[2017-08-21 08:43] LABS: MRSA PCR SURVEILLANCE MRSA NOT DETECTED (NOT DETECT)
[2017-08-21] MEDS: guaiFENesin E.R. 600 MG TAB PO ×2 (09:33→19:49)
[2017-08-21] MEDS: OSELTAMIVIR PHOSPHATE 75 MG CAP PO ×2 (09:33→19:49)
[2017-08-21] MEDS: SODIUM CHLORIDE 0.9% FLUSH 10 ML FLUSH IV FLUSH ×2 (09:34→19:49)
[2017-08-21] MEDS ORDERED: VANCOMYCIN 1 GM/200 ML INJ 200 ML IV (11:15)
[2017-08-21] MEDS ORDERED: Vancomycin Consult Pharmacy 1 EA OTHER (11:15)
[2017-08-21] MEDS: VANCOMYCIN 1,000 MG/NS 250 ML IV (12:21)
[2017-08-21] MEDS ORDERED: ALBUTEROL SULFATE 90 MCG/ACT HFA 8 GM INHALER INH (12:45)
[2017-08-21] MEDS: cefTRIAXone INJ 1,000 MG in SODIUM CHLORIDE 0.9% INJ 100 ML IV (13:58)
[2017-08-21] MEDS: FAMOTIDINE 20 MG/2 ML VIAL IV PUSH (13:58)
[2017-08-21] MEDS: DEXTROAMPHETAMINE/AMPHETAMINE 20 MG TAB PO ×2 (14:27→17:41)
[2017-08-21] MEDS: LEVOFLOXACIN 750 MG PREMIX INJ 150 ML IV (19:50)
[2017-08-21] MEDS: methylPREDNISolone SOD SUCC 125 MG/2 ML VIAL IV PUSH (22:47)
[2017-08-22] MEDS: SODIUM CHLOR 0.9% 1000 ML INJ 1,000 ML IV ×4 (00:53→23:56)
[2017-08-22] MEDS: FAMOTIDINE 20 MG/2 ML VIAL IV PUSH ×2 (00:58→13:46)
[2017-08-22] MEDS: HEPARIN SODIUM - SQ 10,000 UNITS/ML VIAL SQ ×3 (04:16→22:27)
[2017-08-22] MEDS: VANCOMYCIN INJ 1,250 MG in SODIUM CHLOR 0.9% 250 ML INJ 250 ML IV ×2 (04:16→22:28)
[2017-08-22] MEDS: RESP: ALBUTEROL 2.5 MG/IPRATROPIUM 0.5 MG NEB (SCH) NEB ×4 (04:46→15:56)
[2017-08-22] MEDS: FLUTICASONE 100 MCG/VILANTEROL 25 MCG INHALER INH (08:51)
[2017-08-22] MEDS: VENLAFAXINE HCL XR 37.5 MG CAP PO (08:51)
[2017-08-22] MEDS: OSELTAMIVIR PHOSPHATE 75 MG CAP PO ×2 (08:52→20:39)
[2017-08-22] MEDS: SODIUM CHLORIDE 0.9% FLUSH 10 ML FLUSH IV FLUSH ×2 (08:52→20:39)
[2017-08-22] MEDS: DEXTROAMPHETAMINE/AMPHETAMINE 20 MG TAB PO ×3 (08:52→17:21)
[2017-08-22] MEDS: guaiFENesin E.R. 600 MG TAB PO ×2 (08:52→20:39)
[2017-08-22 08:53] LABS: CREATININE 1.05 MG/DL (0.60-1.30); GLOMERULAR FILTRATION RATE 71 ML/MIN (>89)
[2017-08-22 10:21] LABS: AUTOMATED NEUTROPHIL # 18.5 TH/MM3 (1.8-7.7); BASOPHIL % 0.1 % (0.0-2.0); HEMATOCRIT 34.9 % (39.0-51.0); HEMO FLAGS DIFF FINAL; HEMOGLOBIN 11.4 GM/DL (13.0-17.0); LYMPH % 2.6 % (9.0-44.0); LYMPHOCYTE # 0.5 TH/MM3 (1.0-4.8); MEAN CELL VOLUME 88.9 FL (80.0-100.0); MEAN CORPUSCULAR HEMOGLOBIN 29.2 PG (27.0-34.0); MEAN CORPUSCULAR HGB CONC 32.8 % (32.0-36.0); MEAN PLATELET VOLUME 7.8 FL (7.0-11.0); MONO % 1.9 % (0.0-8.0); MONOCYTE # 0.4 TH/MM3 (0-0.9); NEUT % 95.4 % (16.0-70.0); PLATELET COUNT 248 TH/MM3 (150-450); RED BLOOD COUNT 3.93 MIL/MM3 (4.50-5.90); RED CELL DISTRIBUTION WIDTH 14.4 % (11.6-17.2); WHITE BLOOD COUNT 19.4 TH/MM3 (4.0-11.0)
[2017-08-22] MEDS: methylPREDNISolone SOD SUCC 40 MG/1 ML VIAL IV PUSH ×2 (10:52→22:28)
[2017-08-22 11:02] LABS: ALBUMIN 2.3 GM/DL (3.4-5.0); ALKALINE PHOSPHATASE 66 U/L (45-117); ALT (GPT) 26 U/L (12-78); ANION GAP 8 MEQ/L (5-15); AST (GOT) 14 U/L (15-37); BICARBONATE 19.6 MEQ/L (21.0-32.0); BLOOD UREA NITROGEN 25 MG/DL (7-18); CHLORIDE 113 MEQ/L (98-107); CREATININE 1.06 MG/DL (0.60-1.30); GLOMERULAR FILTRATION RATE 70 ML/MIN (>89); GLUCOSE,RANDOM 189 MG/DL (74-106); MAGNESIUM 1.8 MG/DL (1.5-2.5); POTASSIUM 4.1 MEQ/L (3.5-5.1); SODIUM (NA) 141 MEQ/L (136-145); TOTAL BILIRUBIN ADULT 0.2 MG/DL (0.2-1.0); TOTAL PROTEIN 5.6 GM/DL (6.4-8.2)
[2017-08-22] MEDS: cefTRIAXone INJ 1,000 MG in SODIUM CHLORIDE 0.9% INJ 100 ML IV (13:45)
[2017-08-23] MEDS: FAMOTIDINE 20 MG/2 ML VIAL IV PUSH ×2 (02:27→14:00)
[2017-08-23] MEDS: SODIUM CHLOR 0.9% 1000 ML INJ 1,000 ML IV (02:27)
[2017-08-23] MEDS: RESP: ALBUTEROL 2.5 MG/IPRATROPIUM 0.5 MG NEB (SCH) NEB ×4 (04:06→20:33)
[2017-08-23] MEDS: HEPARIN SODIUM - SQ 10,000 UNITS/ML VIAL SQ ×3 (06:00→21:33)
[2017-08-23 08:53] LABS: AUTOMATED NEUTROPHIL # 17.3 TH/MM3 (1.8-7.7); BASOPHIL % 0.1 % (0.0-2.0); HEMATOCRIT 35.1 % (39.0-51.0); HEMO FLAGS DIFF FINAL; HEMOGLOBIN 11.6 GM/DL (13.0-17.0); LYMPH % 4.1 % (9.0-44.0); LYMPHOCYTE # 0.8 TH/MM3 (1.0-4.8); MEAN CELL VOLUME 87.9 FL (80.0-100.0); MEAN PLATELET VOLUME 7.8 FL (7.0-11.0); MONO % 2.9 % (0.0-8.0); MONOCYTE # 0.5 TH/MM3 (0-0.9); NEUT % 92.9 % (16.0-70.0); PLATELET COUNT 255 TH/MM3 (150-450); RED CELL DISTRIBUTION WIDTH 14.3 % (11.6-17.2); WHITE BLOOD COUNT 18.6 TH/MM3 (4.0-11.0)
[2017-08-23] MEDS: DEXTROAMPHETAMINE/AMPHETAMINE 20 MG TAB PO ×3 (09:00→17:31)
[2017-08-23 09:23] LABS: ALBUMIN 2.5 GM/DL (3.4-5.0); ANION GAP 7 MEQ/L (5-15); AST (GOT) 15 U/L (15-37); BICARBONATE 23.2 MEQ/L (21.0-32.0); BLOOD UREA NITROGEN 27 MG/DL (7-18); CALCIUM 8.7 MG/DL (8.5-10.1); CHLORIDE 109 MEQ/L (98-107); CREATININE 1.12 MG/DL (0.60-1.30); GLOMERULAR FILTRATION RATE 66 ML/MIN (>89); GLUCOSE,RANDOM 109 MG/DL (74-106); POTASSIUM 4.3 MEQ/L (3.5-5.1); SODIUM (NA) 139 MEQ/L (136-145)
[2017-08-23 09:25] LABS: ALT (GPT) 29 U/L (12-78)
[2017-08-23 09:26] LABS: ALKALINE PHOSPHATASE 72 U/L (45-117); TOTAL BILIRUBIN ADULT 0.3 MG/DL (0.2-1.0)
[2017-08-23] MEDS: VENLAFAXINE HCL XR 37.5 MG CAP PO (10:40)
[2017-08-23] MEDS: guaiFENesin E.R. 600 MG TAB PO ×2 (10:40→21:32)
[2017-08-23] MEDS: LEVOFLOXACIN 750 MG PREMIX INJ 150 ML IV (10:41)
[2017-08-23] MEDS: OSELTAMIVIR PHOSPHATE 75 MG CAP PO ×2 (10:41→21:32)
[2017-08-23] MEDS: FLUTICASONE 100 MCG/VILANTEROL 25 MCG INHALER INH (10:41)
[2017-08-23] MEDS: SODIUM CHLORIDE 0.9% FLUSH 10 ML FLUSH IV FLUSH ×2 (10:42→21:33)
[2017-08-23] MEDS: methylPREDNISolone SOD SUCC 40 MG/1 ML VIAL IV PUSH ×2 (12:48→22:56)
[2017-08-23] MEDS: cefTRIAXone INJ 1,000 MG in SODIUM CHLORIDE 0.9% INJ 100 ML IV (14:00)
[2017-08-23] MEDS ORDERED: PHARMACY ORDERED LAB (16:45)
[2017-08-24] MEDS: RESP: ALBUTEROL 2.5 MG/IPRATROPIUM 0.5 MG NEB (SCH) NEB ×2 (02:57→10:47)
[2017-08-24] MEDS: FAMOTIDINE 20 MG/2 ML VIAL IV PUSH (03:04)
[2017-08-24] MEDS: HEPARIN SODIUM - SQ 10,000 UNITS/ML VIAL SQ (06:00)
[2017-08-24 09:29] LABS: CREATININE 0.92 MG/DL (0.60-1.30); GLOMERULAR FILTRATION RATE 83 ML/MIN (>89)
[2017-08-24] MEDS: OSELTAMIVIR PHOSPHATE 75 MG CAP PO (09:43)
[2017-08-24] MEDS: SODIUM CHLORIDE 0.9% FLUSH 10 ML FLUSH IV FLUSH (09:43)
[2017-08-24] MEDS: VENLAFAXINE HCL XR 37.5 MG CAP PO (09:43)
[2017-08-24] MEDS: FLUTICASONE 100 MCG/VILANTEROL 25 MCG INHALER INH (09:43)
[2017-08-24] MEDS: DEXTROAMPHETAMINE/AMPHETAMINE 20 MG TAB PO ×2 (09:43→12:59)
[2017-08-24] MEDS: guaiFENesin E.R. 600 MG TAB PO (09:43)
[2017-08-24] MEDS: methylPREDNISolone SOD SUCC 40 MG/1 ML VIAL IV PUSH (11:29)
== END 2017-08-24 14:59 | disposition home or self-care (01) | DRG 871 ==
LOC: NEPE 16:11 → N05B 08-22 18:54 → NEDA 18:04 → HIME 23:35
DX: A41.9 Sepsis, unspecified organism (principal); J10.00 Influenza due to other identified influenza virus with unspecified type of pneumonia; R65.21 Severe sepsis with septic shock; N17.9 Acute kidney failure, unspecified; E87.2 Acidosis; J18.9 Pneumonia, unspecified organism; E86.0 Dehydration; J44.0 Chronic obstructive pulmonary disease with (acute) lower respiratory infection; J44.1 Chronic obstructive pulmonary disease with (acute) exacerbation; E78.5 Hyperlipidemia, unspecified; F90.9 Attention-deficit hyperactivity disorder, unspecified type; I10 Essential (primary) hypertension; Z96.612 Presence of left artificial shoulder joint; Z87.891 Personal history of nicotine dependence
CPT/HCPCS: 71045; 80048; 80053; 81001; 82565; 83605; 83735; 84484; 85007; 85025; 85027; 85610; 85730; 86403; 87040; 87077; 87185; 87186; 87205; 87641; 87804; 87804-59; 93005; 94640; 94664; 96360; 97110-GP; 97116-GP; 97162-GP; 99285-25

== ENCOUNTER → 2017-10-10 | Outpatient (CLI) | payer BC, MEDICARE ==
[~2017-10-10] MED LIST: ADDE20 PO; ADDE30TA PO; FLUT1INH INH; LEVA500T33 PO; OSEL75 PO; PRED20 PO; VENL37.595 PO; VENTAER INH; ZANT150T2 PO
[2017-10-10 12:25] LABS: AUTOMATED NEUTROPHIL # 6.9 TH/MM3 (1.8-7.7); BASOPHIL # 0.1 TH/MM3 (0-0.2); BASOPHIL % 0.6 % (0.0-2.0); EOSINOPHIL # 0.1 TH/MM3 (0-0.4); EOSINOPHIL % 1.5 % (0.0-4.0); HEMATOCRIT 34.5 % (39.0-51.0); HEMOGLOBIN 11.4 GM/DL (13.0-17.0); LYMPHOCYTE # 1.1 TH/MM3 (1.0-4.8); MEAN CELL VOLUME 87.3 FL (80.0-100.0); MEAN CORPUSCULAR HEMOGLOBIN 28.7 PG (27.0-34.0); MEAN CORPUSCULAR HGB CONC 32.9 % (32.0-36.0); MEAN PLATELET VOLUME 7.1 FL (7.0-11.0); MONO % 5.1 % (0.0-8.0); MONOCYTE # 0.4 TH/MM3 (0-0.9); NEUT % 79.8 % (16.0-70.0); PLATELET COUNT 477 TH/MM3 (150-450); RED BLOOD COUNT 3.95 MIL/MM3 (4.50-5.90); RED CELL DISTRIBUTION WIDTH 14.3 % (11.6-17.2); WHITE BLOOD COUNT 8.6 TH/MM3 (4.0-11.0)
[2017-10-10 12:28] LABS: INTERNATIONAL NORMALIZED RATIO 1.1 RATIO; PROTHROMBIN TIME - PATIENT 10.8 SEC (9.8-11.6)
[2017-10-10 12:42] LABS: BILIRUBIN, URINE NEG (NEG); BLOOD, URINE NEG (NEG); GLUCOSE,URINE NEG (NEG); HYALINE CAST, URINE 3 /lpf (RARE); KETONE, URINE NEG (NEG); MUCUS URINE FEW /lpf (OCC); NITRITE,URINE NEG (NEG); URINE COLOR YELLOW (YELLW/STRAW); URINE LEUKOCYTE ESTERASE NEG (NEG)
[2017-10-10 12:47] LABS: ALBUMIN 3.2 GM/DL (3.4-5.0); AST (GOT) 18 U/L (15-37); BICARBONATE 27.2 MEQ/L (21.0-32.0); BLOOD UREA NITROGEN 15 MG/DL (7-18); CALCIUM 9.1 MG/DL (8.5-10.1); CHLORIDE 107 MEQ/L (98-107); CREATININE 0.99 MG/DL (0.60-1.30); GLOMERULAR FILTRATION RATE 76 ML/MIN (>89); GLUCOSE,FASTING 94 MG/DL (74-99); SODIUM (NA) 141 MEQ/L (136-145)
[2017-10-10 12:48] LABS: ALT (GPT) 19 U/L (12-78)
[2017-10-10 12:51] LABS: ALKALINE PHOSPHATASE 117 U/L (45-117); TOTAL BILIRUBIN ADULT 0.4 MG/DL (0.2-1.0); TOTAL PROTEIN 6.5 GM/DL (6.4-8.2)
--- NOTE | 2017-10-11 20:29 | EKG ---
Date Performed: 10/10/2017 Time Performed: 11:52:02 PTAGE: 67 years EKG: Sinus rhythm NORMAL ECG Since the PREVIOUS TRACING , rate slower DOCTOR: Evon Crisostomo Interpretating Date/Time 10/11/2017 20:28:07
== END ==
LOC: CPRE 11:11
PROVIDERS: ATTEND Surgery
DX: Z01.810 Encounter for preprocedural cardiovascular examination (principal); Z01.812 Encounter for preprocedural laboratory examination; M79.609 Pain in unspecified limb
CPT/HCPCS: 36415; 80053; 81001; 85025; 85610; 85730; 93005

== ENCOUNTER 2017-10-17 06:06 | Inpatient (IN) | payer BC, MEDICARE ==
--- NOTE | 2017-10-12 16:18 | MH ---
cc: Ovidio Simon MD DATE OF ADMISSION: 10/17/2017 ADMITTING DIAGNOSIS: Osteoarthritic degeneration of the left hip, now being admitted for a left total hip arthroplasty. HISTORY OF PRESENT ILLNESS: This pleasant 67-year-old is being admitted today for a left total hip arthroplasty due to severe pain from osteoarthritic degeneration of the left hip. PAST MEDICAL HISTORY: The patient has a history of arthritis. MEDICATIONS: Include Celebrex 200 mg a day. He also takes venlafaxine, atorvastatin and lisinopril. He stopped the Ketorolac. PAST SURGICAL HISTORY: Left total shoulder. REVIEW OF SYSTEMS: Noncontributory. FAMILY HISTORY: Noncontributory. SOCIAL HISTORY: He does smoke or drink. ALLERGIES: HE HAS NO KNOWN ALLERGIES. PHYSICAL EXAMINATION: GENERAL: We find a 67-year-old male, well developed, well nourished, alert and oriented x 3, complaining of pain in his left hip. VITAL SIGNS: Blood pressure 140/82, pulse 88 and regular, respirations 16, temperature 98.3, pulse oximetry 96% on room air. HEENT: Eyes PERRLA, EOMI. Ears, nose, mouth clear. NECK: Supple. LUNGS: Clear. HEART: Regular rate. ABDOMEN: Soft, positive bowel sounds, nontender. EXTREMITIES: Reveal left hip to have decreased range of motion. Neurovascularly intact to his toes. IMPRESSION: Severe painful osteoarthritic degeneration of the left hip. PLAN: Admission for a left total hip arthroplasty today. The patient is given a prescription for postoperative pain and anticoagulation control in the office. Plans on going home after surgical stay in the hospital. JAlphonse Simon MD JRR/KD , 03:49 PM , 04:16 PM
[~2017-10-17] VITALS: Ht 180.3 cm; Wt 85.0 kg
[~2017-10-17 06:06] MED LIST changes: -ADDE20 PO; -LEVA500T33 PO; -OSEL75 PO; -PRED20 PO; -ZANT150T2 PO
[2017-10-17] MEDS ORDERED: SODIUM CHLORID 0.9% 500 ML IV PRN (06:30)
[2017-10-17] MEDS ORDERED: POVIDONE IODINE 5% (ANTISEPSIS KIT) 4 APPLICATIONS EACH NARE PRN (06:30)
[2017-10-17] MEDS ORDERED: LACTATED RINGER'S 1000 ML IV PRN (06:30)
[2017-10-17] MEDS ORDERED: CHLORHEXIDINE GLUCONATE 2 % 1 PACK (2 CLOTHS) TOPICAL PRN (06:30)
[2017-10-17] MEDS ORDERED: METOPROLOL TARTRATE 25 MG TAB PO PRN (06:30)
[2017-10-17] MEDS ORDERED: VANCOMYCIN 1 GM/200 ML INJ 200 ML IV ONE (06:39)
[2017-10-17] MEDS ORDERED: ceFAZolin INJ 1,000 MG VIAL ONE (06:42)
[2017-10-17] MEDS ORDERED: TRANEXAMIC ACID INJ 850 MG in SODIUM CHLORIDE 0.9% INJ 100 ML IV SCH (06:45)
[2017-10-17] MEDS ORDERED: BUPIVACAINE LIPOSO PF 1.3% INJ 20 ML, BUPIVACAINE PF 0.25% INJ 20 ML in SODIUM CHLORIDE... P-ARTICULR SCH (06:45)
[2017-10-17] MEDS ORDERED: VANCOMYCIN 1000 MG/NS 250 ML (for <70 kg) IV SCH ×2 (06:45)
[2017-10-17] MEDS ORDERED: CHLORHEXIDINE GLUCONATE 4% SOLN 120 ML BTL TOPICAL SCH (06:45)
[2017-10-17] MEDS ORDERED: ceFAZolin 2 GM PREMIX 50 ML IV SCH (06:45)
[2017-10-17] MEDS ORDERED: HYDROmorphone HCL PF 2 MG/ML VIAL ONE (07:38)
--- NOTE | 2017-10-17 08:12 | HHI.FF ---
Face to Face Verification Diagnosis: (1) Status post total replacement of left hip Physical Therapy Gait training Hip: Total hip, Protocol: Left, Posterior hip precautions, Abduction pillow while in bed, Progress to weight bearing Canvas Knee Splint: When in bed & 2 pillows btw thighs Nursing RN: 3 days/week x 2 weeks Dressing Changes: Do not change dressing I have seen patient Pierce Rossi on 10/17/17. My clinical findings support the need for the requested home health care services because: Limited ability to care for self High risk of falls I certify that my clinical findings support that this patient is homebound because: Unsteady gait/balance Ovidio Simon MD Oct 17, 2017 08:12
[2017-10-17] MEDS ORDERED: ADJUSTABLE COMM1 MIS (08:13)
[2017-10-17] MEDS ORDERED: WALKER WHEELS/F1 MIS (08:13)
[2017-10-17] MEDS ORDERED: ACETAMINOPHEN 325 MG TAB PO PRN (08:15)
[2017-10-17] MEDS ORDERED: NALOXONE HCL 0.4 MG/ML AMP IV PUSH PRN (08:15)
[2017-10-17] MEDS ORDERED: TRANEXAMIC ACID INJ 0 MG in SODIUM CHLORIDE 0.9% INJ 100 ML IV SCH (08:15)
[2017-10-17] MEDS ORDERED: BISACODYL 10 MG SUPP RECTAL PRN (08:15)
[2017-10-17] MEDS ORDERED: MORPHINE SULFATE 8 MG/ML INJ IV PUSH PRN (08:15)
[2017-10-17] MEDS ORDERED: ONDANSETRON HCL 4 MG/2 ML VIAL IVP PRN (08:15)
[2017-10-17] MEDS ORDERED: TEMAZEPAM 15 MG CAP PO PRN (08:15)
[2017-10-17] MEDS ORDERED: MISCELLANEOUS NURSING INFORMATION XX PRN (08:15)
[2017-10-17] MEDS ORDERED: Post-op Orders (for Pharmacy) XX ONE (08:15)
[2017-10-17] MEDS ORDERED: ALBUTEROL SULFATE 90 MCG/ACT HFA 8 GM INHALER INH PRN (08:15)
[2017-10-17] MEDS: FLUTICASONE 100 MCG/VILANTEROL 25 MCG INHALER INH SCH (09:00)
[2017-10-17] MEDS: VENLAFAXINE HCL XR 37.5 MG CAP PO SCH (09:00)
[2017-10-17] MEDS: CELECOXIB 200 MG CAP PO SCH (09:00)
[2017-10-17] MEDS: DEXTROAMPHETAMINE/AMPHETAMINE 30 MG TAB PO SCH ×3 (09:00→18:48)
[2017-10-17] MEDS ORDERED: ACETAMINOPHEN 1000 MG/100 ML 100 ML IV ONE (09:57)
[2017-10-17] MEDS ORDERED: MIDAZOLAM HCL 2 MG/2 ML VIAL ONE (10:56)
--- NOTE | 2017-10-17 11:18 | HHI.PR ---
Immediate Post Op Note Procedure Date: Oct 17, 2017 Pre Op Diagnosis: Osteoarthritic degeneration of the left hip Post Op Diagnosis: Osteoarthritic degeneration of the left hip Surgeon: Raquel Simon MD Instructor Substitute Cosmetology(s): Yanci CABRAL Procedure: Left total Hip Arthroplasty Complications: none Specimen(s) removed: none Estimated blood loss: 800cc Anesthesia: General Drains: None IVF Urinary Output (mLs): 0 (No Victor) Patient to: PACU Patient Condition: Good Implant/Devices: SEE IMPLANT LOG (if applicable) Date/Time of Procedure: SEE SURGICAL CARE RECORD Yanci Gastelum Oct 17, 2017 11:18
[2017-10-17] MEDS: TRANEXAMIC ACID INJ 850 MG in SODIUM CHLORIDE 0.9% INJ 100 ML IV SCH ×2 (11:25→12:24)
[2017-10-17] MEDS ORDERED: *morphine SULFATE 4 MG/ML PERIprocedure ONLY ONE ×3 (11:31→12:02)
[2017-10-17] MEDS: LACTATED RINGER'S 1000 ML INJ 1,000 ML IV SCH ×2 (12:00→20:24)
[2017-10-17] MEDS ORDERED: DO NOT ADM ANY ANTICOAGULANT DRUGS PRN (12:15)
--- NOTE | 2017-10-17 12:36 | RADRPT ---
EXAM DATE/TIME: 10/17/2017 11:56 [facility] COMPARISON: No previous studies available for comparison. INDICATIONS : Post op left hip MEDICAL HISTORY : Chronic obstructive pulmonary disease. SURGICAL HISTORY : shoulder ENCOUNTER: Initial ACUITY: 1 day PAIN SCORE: Non-responsive. LOCATION: Left hip FINDINGS: Good position and alignment of the left hip prosthesis. The bony structures are grossly intact. CONCLUSION: Good position and alignment on this postoperative study. Alonzo Griggs MD on October 17, 2017 at 12:34 Board Certified Radiologist. This report was verified electronically.
[2017-10-17 14:10] VITALS: BP 144/69; PULSE 93; RESP 18; TEMP 97.3; O2SAT 93
[2017-10-17 16:42] VITALS: BP 115/82; PULSE 109; RESP 18; TEMP 97.2; O2SAT 95
[2017-10-17] MEDS: ACETAMINOPHEN/HYDROcodone 325 MG/7.5 MG TAB PO PRN ×2 (17:07→22:26)
[2017-10-17 20:00] VITALS: BP 118/83; PULSE 116; RESP 22; TEMP 101.4; O2SAT 93
[2017-10-18] VITALS: BP 107/62; PULSE 113; RESP 22; TEMP 100.6; O2SAT 95
[2017-10-18] MEDS: ACETAMINOPHEN/HYDROcodone 325 MG/7.5 MG TAB PO PRN ×5 (02:10→18:33)
[2017-10-18 04:00] VITALS: BP 102/52; PULSE 56; RESP 20; TEMP 98.6; O2SAT 96
[2017-10-18 05:10] LABS: HEMATOCRIT 27.4 % (39.0-51.0); HEMOGLOBIN 9.1 GM/DL (13.0-17.0)
--- NOTE | 2017-10-18 07:07 | MP ---
cc: Ovidio Simon MD DATE OF OPERATION: 10/17/2017 PREOPERATIVE DIAGNOSIS: Osteoarthritic degeneration left hip. POSTOPERATIVE DIAGNOSIS: Osteoarthritic degeneration left hip. PROCEDURE PERFORMED: Left total hip arthroplasty using Aesculap components size 54 cup with a 36 E-liner, a 24 x 6.5 mm screw and a size 14 lateralized stem with a size 36 short or -4 mm ceramic head. No cement utilized. SURGEON: Dr. Simon. ACCOUNT ANALYST: MARIANNA Tony. ANESTHESIA: General intubation. PROCEDURE: Please use my operating room guide for total hip arthroplasty insert that the components utilized were the aforementioned components. 10 mL of Surgiflo was injected for extra bone control. There was 800 mL blood loss and quite a bit of oozing. 10 mL of Exparel with 40 mL of saline and 10 mL of 0.25% Marcaine plain was injected around the anterior side hip joint for extra pain control. Sciatic nerve was identified and protected throughout the procedure. The remains of the capsule approximated using interrupted #1 Vicryl. Deep fascia approximated with running #2 Quill. Subcutaneous tissue approximated using interrupted and running 2-0 and 4-0 Monocryl suture. Primapore dressing. Abduction pillow brace and knee immobilizer. No drain utilized. ESTIMATED BLOOD LOSS: 800 mL COUNTS: Sponge and suture counts correct. The patient tolerated the procedure well and left the operating room in satisfactory condition. Nirav Mata ARNP was present during the entire procedure to include patient positioning and the procedure. The medical necessity of a nurse practitioner as mobile sales assistant was indicated in this case due to the the surgical complexity of the case itself. During the surgical case, the surgical training specialist was working the back table, all my surgical pathologist , MARIANNA, was directly assisting me. Ovidio Simon MD JRR/DL , 10:34 AM , 11:32 AM
[2017-10-18 08:00] VITALS: BP 105/58; PULSE 80; RESP 17; TEMP 98; O2SAT 97
[2017-10-18] MEDS: CELECOXIB 200 MG CAP PO SCH (09:00)
[2017-10-18] MEDS: FLUTICASONE 100 MCG/VILANTEROL 25 MCG INHALER INH SCH (09:00)
[2017-10-18] MEDS: LACTATED RINGER'S 1000 ML INJ 1,000 ML IV SCH ×2 (09:08→19:42)
[2017-10-18] MEDS: DEXTROAMPHETAMINE/AMPHETAMINE 30 MG TAB PO SCH ×3 (10:05→17:50)
[2017-10-18] MEDS: APIXABAN 2.5 MG TABLET PO SCH ×2 (10:05→19:42)
[2017-10-18] MEDS: VENLAFAXINE HCL XR 37.5 MG CAP PO SCH (10:05)
--- NOTE | 2017-10-18 11:38 | PD.ORT.PN ---
Subjective Subjective Remarks Pt having moderate pain at moment. Objective Vitals Vital Signs Date Time Temp Pulse Resp B/P (MAP) Pulse Ox O2 Delivery O2 Flow Rate FiO2 10/18/17 08:00 98.0 80 17 105/58 (74) 97 10/18/17 04:00 98.6 56 20 102/52 (69) 96 10/18/17 00:00 100.6 113 22 107/62 (77) 95 10/17/17 20:00 101.4 116 22 118/83 (95) 93 10/17/17 16:42 97.2 109 18 115/82 (93) 95 10/17/17 14:10 97.3 93 18 144/69 (94) 93 10/17/17 12:00 98.5 90 14 169/91 (117) 94 Room Air 10/17/17 11:45 88 14 171/98 (122) 97 Room Air I/O 10/17/17 10/17/17 10/17/17 10/18/17 10/18/17 10/18/17 07:00 15:00 23:00 07:00 15:00 23:00 Intake Total 1500 ml 100 ml Output Total 3800 ml Balance -2300 ml 100 ml Intake IV Total 1500 ml 100 ml Output Estimated Blood Loss 800 ml Other 3000 ml # Voids 5 # Bowel Movements 0 Result Diagram: 10/18/17 0422 Imaging Last 48 hours Impressions Hip X-Ray 10/17/17 0808 Signed Impressions: Service Date/Time: Tuesday, October 17, 2017 11:56 - CONCLUSION: Good position and alignment on this postoperative study. Alonzo Griggs MD Objective Remarks dressing dry and intact. NV intact to toes. No calf tenderness. Assessment & Plan Ortho Post Op Day #: 1 Problem List: Assessment and Plan OOB, PT, walker. Ovidio Simon MD Oct 18, 2017 11:37
[2017-10-18 12:00] VITALS: BP 110/60; PULSE 82; RESP 17; TEMP 98.2; O2SAT 97
[2017-10-18] MEDS: MAGNESIUM HYDROXIDE SUSP 30 ML CUP PO PRN (14:14)
[2017-10-18 16:00] VITALS: BP 118/72; PULSE 87; RESP 17; TEMP 98.4; O2SAT 97
[2017-10-18] MEDS: MULTIVITAMINS/MINERALS THERAPEUTIC TAB PO SCH (19:42)
[2017-10-18] MEDS: DOCUSATE SODIUM 100 MG CAP PO SCH (19:42)
[2017-10-18 20:56] VITALS: BP 107/65; PULSE 78; RESP 18; TEMP 98.4; O2SAT 96
[2017-10-19] MEDS: ACETAMINOPHEN/HYDROcodone 325 MG/7.5 MG TAB PO PRN ×6 (00:05→22:56)
[2017-10-19 01:38] VITALS: BP_SYST 108; BP_SYST 174; BP_DIAS 70; BP_DIAS 74; PULSE 81; PULSE 88; RESP 18; TEMP 98.1; TEMP 98.4; O2SAT 96; O2SAT 97
--- NOTE | 2017-10-19 07:30 | PD.ORT.PN ---
Subjective Subjective Remarks Pt more comfortable today but feels weak getting in and out of bed. Objective Vitals Vital Signs Date Time Temp Pulse Resp B/P (MAP) Pulse Ox O2 Delivery O2 Flow Rate FiO2 10/19/17 01:38 98.4 81 18 108/70 (83) 97 10/18/17 20:56 98.4 78 18 107/65 (79) 96 10/18/17 16:00 98.4 87 17 118/72 (87) 97 10/18/17 12:00 98.2 82 17 110/60 (77) 97 10/18/17 08:00 98.0 80 17 105/58 (74) 97 I/O 10/18/17 10/18/17 10/18/17 10/19/17 10/19/17 10/19/17 07:00 15:00 23:00 07:00 15:00 23:00 Intake Total 600 ml 480 ml 480 ml Balance 600 ml 480 ml 480 ml Intake Oral 600 ml 480 ml 480 ml # Voids 5 3 2 2 # Bowel Movements 0 0 0 Result Diagram: 10/18/17 0422 Imaging Last 48 hours Impressions Hip X-Ray 10/17/17 0808 Signed Impressions: Service Date/Time: Tuesday, October 17, 2017 11:56 - CONCLUSION: Good position and alignment on this postoperative study. Alonzo Griggs MD Objective Remarks dressing dry and intact. NV intact to toes. No calf tenderness. Assessment & Plan Ortho Post Op Day #: 2 Problem List: Assessment and Plan OOB, PT, SNF when bed available. Ovidio Simon MD Oct 19, 2017 07:30
--- NOTE | 2017-10-19 07:43 | HHI.DS ---
Discharge Summary Admission Date Oct 17, 2017 at 06:06 Discharge Date: Oct 19, 2017 Admitting Diagnosis osteoarthritic degeneration left hip Diagnosis: (1) Status post total replacement of left hip Diagnosis: Principal ICD Codes: Z96.642 - Presence of left artificial hip joint Brief History This is a 67 year old male patient CBC/BMP: 10/18/17 0422 Significant Findings Laboratory Tests Test 10/18/17 04:22 Hemoglobin 9.1 GM/DL (13.0-17.0) Hematocrit 27.4 % (39.0-51.0) PE at Discharge dressing dry and intact. NV intact to toes. No calf tenderness. Hospital Course Pt underwent a left total hip on day of admission. He received a course of prophylactic IV antibiotics and within 23 hours started on anticoagulation therapy. He continued to improve with PT and PO pain meds and was discharged to SNF on POD #2 in good condition with instructions for daily PT and follow up office visit with Dr. Simon. Pt Condition on Discharge: Good Discharge Disposition: Discharge to SNF Discharge Instructions Diet Instructions: As Tolerated, No Restrictions Activities You Can Perform: Full Weight Bearing, Shower Only-No Bath Activities to Avoid: Bathing, Driving Ovidio Simon MD Oct 19, 2017 07:43
[2017-10-19] MEDS ORDERED: HYDR-3580 PO (07:45)
[2017-10-19 07:54] VITALS: BP 121/70; PULSE 86; RESP 17; TEMP 97.8; O2SAT 95
[2017-10-19] MEDS: DOCUSATE SODIUM 100 MG CAP PO SCH ×2 (07:57→20:45)
[2017-10-19] MEDS: MAGNESIUM HYDROXIDE SUSP 30 ML CUP PO PRN (07:57)
[2017-10-19] MEDS: CELECOXIB 200 MG CAP PO SCH (07:57)
[2017-10-19] MEDS: VENLAFAXINE HCL XR 37.5 MG CAP PO SCH (07:58)
[2017-10-19] MEDS: DEXTROAMPHETAMINE/AMPHETAMINE 30 MG TAB PO SCH ×3 (07:58→18:33)
[2017-10-19] MEDS: APIXABAN 2.5 MG TABLET PO SCH ×2 (07:58→20:45)
[2017-10-19] MEDS: MULTIVITAMINS/MINERALS THERAPEUTIC TAB PO SCH ×2 (08:05→20:45)
[2017-10-19] MEDS: FLUTICASONE 100 MCG/VILANTEROL 25 MCG INHALER INH SCH (09:31)
[2017-10-19] MEDS: LACTATED RINGER'S 1000 ML INJ 1,000 ML IV SCH ×2 (10:08→22:38)
[2017-10-19 11:26] VITALS: BP 121/72; PULSE 88; RESP 18; TEMP 98.1; O2SAT 99
[2017-10-19 13:22] LABS: HEMATOCRIT 28.6 % (39.0-51.0); HEMOGLOBIN 9.5 GM/DL (13.0-17.0)
[2017-10-19 16:00] VITALS: BP 120/70; PULSE 84; RESP 18; TEMP 97.4; O2SAT 99
[2017-10-19 19:20] VITALS: BP 129/69; PULSE 95; RESP 18; TEMP 98.1; O2SAT 97
[2017-10-20 00:58] VITALS: BP 134/73; PULSE 95; RESP 18; TEMP 97.7; O2SAT 97
[2017-10-20] MEDS: ACETAMINOPHEN/HYDROcodone 325 MG/7.5 MG TAB PO PRN ×3 (04:00→12:29)
[2017-10-20 08:00] VITALS: BP 123/76; PULSE 93; RESP 18; TEMP 97.7; O2SAT 97
[2017-10-20] MEDS: VENLAFAXINE HCL XR 37.5 MG CAP PO SCH (09:00)
[2017-10-20] MEDS: CELECOXIB 200 MG CAP PO SCH (09:00)
[2017-10-20] MEDS: MULTIVITAMINS/MINERALS THERAPEUTIC TAB PO SCH (09:34)
[2017-10-20] MEDS: DOCUSATE SODIUM 100 MG CAP PO SCH (09:34)
[2017-10-20] MEDS: DEXTROAMPHETAMINE/AMPHETAMINE 30 MG TAB PO SCH ×2 (09:34→12:28)
[2017-10-20] MEDS: APIXABAN 2.5 MG TABLET PO SCH (09:35)
[2017-10-20] MEDS: FLUTICASONE 100 MCG/VILANTEROL 25 MCG INHALER INH SCH (09:41)
[2017-10-20] MEDS: LACTATED RINGER'S 1000 ML INJ 1,000 ML IV SCH (11:08)
== END 2017-10-20 13:21 | DRG 470 ==
LOC: HSDI 06:06 → N06A 14:26
PROVIDERS: ADMIT Surgery; ATTEND Surgery
PROC: 0SRB03A Replacement of Left Hip Joint with Ceramic Synthetic Substitute, Uncemented, Open Approach (ICD-10-PCS; principal; 2017-10-17 08:04)
DX: M16.12 Unilateral primary osteoarthritis, left hip (principal); J44.9 Chronic obstructive pulmonary disease, unspecified; E78.5 Hyperlipidemia, unspecified; Z96.612 Presence of left artificial shoulder joint; K21.9 Gastro-esophageal reflux disease without esophagitis; D64.9 Anemia, unspecified; Z87.891 Personal history of nicotine dependence
CPT/HCPCS: 73501; 85014; 85018; 94150; C1776; C9290; J0131; J0690; J1170; J2250; J2270; J3010; J3370; J7050; J7120; L1830

== ENCOUNTER 2017-11-18 11:42 | Emergency (ER) | payer BC, MEDICARE ==
[~2017-11-18] VITALS: Ht 180.3 cm; Wt 84.6 kg
[~2017-11-18 11:42] MED LIST changes: +ADJUSTABLE COMM1 MIS; +HYDR-3580 PO; +WALKER WHEELS/F1 MIS
[2017-11-18 11:44] VITALS: BP 140/82; PULSE 93; RESP 18; TEMP 97.9; O2SAT 98
[2017-11-18] MEDS ORDERED: OSEL75 PO (12:12)
[2017-11-18] MEDS ORDERED: [UNRECOGNIZED DRUG - REMARK] PO (12:12)
--- NOTE | 2017-11-18 12:58 | RADRPT ---
EXAM DATE/TIME: 11/18/2017 12:43 [facility] COMPARISON: No previous studies available for comparison. INDICATIONS : Left hip pain post recent therapy session. Patient is 1 month post op left total hip replacement. MEDICAL HISTORY : Hypertension. Chronic obstructive pulmonary disease. Osteoarthritis. SURGICAL HISTORY : Appendectomy. Left shoulder. Left total hip replacement. ENCOUNTER: Initial ACUITY: 2 days PAIN SCORE: 7/10 LOCATION: Left hip FINDINGS: The patient is status post a total hip arthroplasty with a bipolar prosthesis. Prosthesis is well-sea marlon. Alignment is anatomic. A fracture is not appreciated. CONCLUSION: Anatomic alignment. No fracture Howard Sommer MD FACR Howard Sommer MD FACR on November 18, 2017 at 12:55 Board Certified Radiologist. This report was verified electronically.
--- NOTE | 2017-11-18 13:10 | PD ---
HPI Chief Complaint: Pain: Acute or Chronic Time Seen by Provider: 12:27 Travel History International Travel<30 days: No Contact w/Intl Traveler<30days: No Traveled to known affect area: No History of Present Illness HPI 67-year-old male here with left hip pain. Patient is status post hip replacement 10/12/17. While at physical therapy today he reports he developed severe muscle spasm in his left thigh which caused him to feel extreme pain in the left hip. Physical therapy then referred him to the ER for evaluation. The patient now has minimal pain in the left hip reproduced by flexion of the hip. He reports he saw his orthopedic surgeon yesterday for follow-up and reports everything looked "good". Symptom severity is moderate. Aggravated by movement and relieved with rest. He denies fever, chills, altered sensation in the extremity. PFSH Past Medical History Hx Anticoagulant Therapy: No Arthritis: Yes Cancer: No Cardiovascular Problems: No COPD: Yes Diabetes: No Diminished Hearing: No Endocrine: No Genitourinary: No Hepatitis: No Hiatal Hernia: No Hypertension: Yes Immune Disorder: No Musculoskeletal: Yes (OA) Neurologic: No Psychiatric: No Reproductive: No Respiratory: Yes (COPD) Thyroid Disease: No Tetanus Vaccination: < 5 Years Influenza Vaccination: No Past Surgical History Abdominal Surgery: Yes (APPY) AICD: No Appendectomy: Yes Joint Replacement: Yes (L SHOULDER, L HIP ) Pacemaker: No Other Surgery: Yes Social History Alcohol Use: No Tobacco Use: No Substance Use: No Allergies-Medications (Allergen,Severity, Reaction): Coded Allergies: No Known Allergies (Unverified Allergy, Unknown, 11/18/17) Reported Meds & Prescriptions Reported Meds & Active Scripts Active Hydrocodone-Acetamin 7.5-325 (Hydrocodone/Acetaminophen) 7.5 Mg-325 Mg Tablet 1 Tab PO Q4H PRN 14 Days Walker with Front Wheels (Device) 1 Mis Mis Ea .XX DIRECTED Adjustable Commode 3-in-1 (Device) 1 Mis Mis Ea .XX DIRECTED Ventolin Hfa 18 GM Inh (Albuterol Sulfate) 90 Mcg/Act Aer 2 Puff INH Q4H PRN Breo Ellipta Inh (Fluticasone/Vilanterol) 100-25 Mcg/Act Inh 1 Puff INH DAILY Reported [antibiotic pill] 1 Tab PO BID Tamiflu (Oseltamivir Phosphate) 75 Mg Cap 75 Mg PO BID Adderall (Amphetamine-Dextroamphetamine) 30 Mg Tab 30 Mg PO TID Avoid late evening doses. Space doses at least 4 to 6 hours if more than once/day dosing. Venlafaxine ER 24 HR (Venlafaxine HCl) 37.5 Mg Cap 37.5 Mg PO DAILY Review of Systems Except as stated in HPI: all other systems reviewed are Neg General / Constitutional: No: Fever Physical Exam Narrative GENERAL: Alert and well-appearing 67-year-old male SKIN: Warm and dry. Well healing surgical scar to the left lateral hip without evidence of infection HEAD: Normocephalic. EYES: No scleral icterus. No injection or drainage. NECK: Supple, trachea midline. No JVD or lymphadenopathy. CARDIOVASCULAR: Regular rate and rhythm without murmurs, gallops, or rubs. RESPIRATORY: Breath sounds equal bilaterally. No accessory muscle use. GASTROINTESTINAL: Abdomen soft, non-tender, nondistended. MUSCULOSKELETAL: No cyanosis, or edema. Left lower extremity: Mild tenderness to palpation of the lateral hip. Well healing surgical scar. No evidence of infection. No warmth or erythema. Hip flexion causes moderate discomfort. 2+ DP pulse. Normal sensation. Brisk cap refill. BACK: Nontender without obvious deformity. No CVA tenderness. Data Data Last Documented VS Vital Signs Date Time Temp Pulse Resp B/P (MAP) Pulse Ox O2 Delivery O2 Flow Rate FiO2 11/18/17 11:44 97.9 93 18 140/82 (101) 98 Orders Orders Hip, Uni(Ap&Lat) W Ap Pelvis (11/18/17 ) Ed Discharge Order (11/18/17 13:11) [facility] Medical Decision Making Medical Screen Exam Complete: Yes Emergency Medical Condition: Yes Differential Diagnosis Postsurgical hip pain, muscle spasm, hip dislocation Narrative Course 67-year-old male here with an episode of left hip pain while at physical therapy today. He was concerned he dislocated the hip. Extremities neurovascularly intact. No evidence of infection. X-ray is negative for hardware malfunction or dislocation. He is instructed to follow-up with his orthopedist. Continue his current pain medication as directed. Diagnosis Primary Impression: Hip pain Qualified Codes: M25.552 - Pain in left hip Referrals: Primary Care Physician Additional Instructions: Follow-up with her orthopedic surgeon. Pain medication as directed. Return if he develop new or worsening symptoms Scripts Methocarbamol (Robaxin) 750 Mg Tab 750 MG PO QID for Muscle Spasm for 12 Days, TAB 0 Refills Prov: Steffi Alva 11/18/17 Disposition: 01 DISCHARGE HOME Condition: Stable Steffi Alva Nov 18, 2017 13:10
[2017-11-18] MEDS ORDERED: ROBA750T PO (13:14)
== END 2017-11-18 13:19 | disposition home or self-care (01) ==
LOC: PHEFT 11:42
DX: M25.552 Pain in left hip (principal); M19.90 Unspecified osteoarthritis, unspecified site; J44.9 Chronic obstructive pulmonary disease, unspecified; I10 Essential (primary) hypertension; Z79.51 Long term (current) use of inhaled steroids; Z79.899 Other long term (current) drug therapy
CPT/HCPCS: 73502; 99283

== ENCOUNTER → 2018-01-04 | Outpatient (CLI) | payer BC ==
[~2018-01-04] MED LIST changes: +OSEL75 PO; +ROBA750T PO; +[UNRECOGNIZED DRUG - REMARK] PO
[2018-01-04 13:52] LABS: HEMATOCRIT 30.5 % (39.0-51.0); HEMOGLOBIN 9.5 GM/DL (13.0-17.0); MEAN CELL VOLUME 69.2 FL (80.0-100.0); MEAN CORPUSCULAR HEMOGLOBIN 21.5 PG (27.0-34.0); MEAN PLATELET VOLUME 7.4 FL (7.0-11.0); PLATELET COUNT 599 TH/MM3 (150-450); RED CELL DISTRIBUTION WIDTH 18.6 % (11.6-17.2); WHITE BLOOD COUNT 7.6 TH/MM3 (4.0-11.0)
[2018-01-04 15:38] LABS: WESTERGREN SEDIMENTATION RATE 42 mm/hr (0-20)
== END ==
LOC: CLAB 12:49
PROVIDERS: ATTEND Surgery
DX: M25.052 Hemarthrosis, left hip (principal)
CPT/HCPCS: 36415; 85027; 85652; 86140; 87070; 87205

== ENCOUNTER 2018-02-06 10:47 | Inpatient (IN) ==
[2018-02-06 12:35] LABS: Baso # (Auto) 0.1 th/mm3 (0.0-0.2); Baso % (Auto) 0.9 % (0.0-2.0); Eos # (Auto) 0.1 th/mm3 (0.0-0.4); Eos % (Auto) 1.8 % (0.0-4.0); Hematocrit 29.7 % (39.0-51.0); Hemoglobin 9.2 gm/dL (13.0-17.0); Lymph # (Auto) 1.3 th/mm3 (1.0-4.8); Lymph % (Auto) 18.3 % (9.0-44.0); Mean Corpuscular Hemoglobin 20.5 pg (27.0-34.0); Mean Corpuscular Volume 66.4 fL (80.0-100.0); Mono # (Auto) 0.7 th/mm3 (0.0-0.9); Mono % (Auto) 9.8 % (0.0-8.0); Neut # (Auto) 4.8 th/mm3 (1.8-7.7); Neut % (Auto) 69.2 % (16.0-70.0); Platelet Count 475 th/mm3 (150-450); Red Blood Count 4.47 mil/mm3 (4.50-5.90); White Blood Count 6.9 th/mm3 (4.0-11.0)
[2018-02-06 12:38] LABS: Mean Corpuscular HGB Conc 30.8 % (32.0-36.0)
--- NOTE | 2018-02-06 12:47 | ED ---
HPI General Chief complaint: Medical Clearance Stated complaint: Medical complaint Time Seen by Provider: 02/06/18 11:41 Source: patient Mode of arrival: ambulatory Limitations: no limitations History of Present Illness HPI Narrative: 67 yo male here for evaluation of possible left hip infection. Per patient had surgery by Dr Simon about 3-4 months ago for hip replacement. Developed hematoma. Put on doxycycline with some improvement. yesterday noted enlargement of the mass on the surgical scar and today it opened up with drainage. He called his Surgeon and told to come here as he is currently doing surgery. Pain is 4/10 but more on the groin than the hip. No numbness, tingling , weakness. No fevers, chills or sweats. No urinary or BM issues. No other medical issues. No injuries. Dr Simon was made aware of it. Currently draining yellowish discharge. No other medical issues. Has been on doxy for 3-4 weeks now. Home Medications Medication Instructions Recorded Confirmed celecoxib [Celebrex] 200 mg PO DAILY 02/06/18 02/06/18 dextroamphetamine-amphetamine 30 mg PO TID 02/06/18 02/06/18 [Adderall] doxycycline hyclate 100 mg PO BID 02/06/18 02/06/18 fluticasone-vilanterol [Breo 1 inh INHALATION DAILY 02/06/18 02/06/18 Ellipta] hydrocodone-acetaminophen 1 tab PO Q4-6H PRN 02/06/18 02/06/18 tramadol 50 mg PO Q6H PRN 02/06/18 02/06/18 venlafaxine 50 mg PO DAILY 02/06/18 02/06/18 Allergies Allergy/AdvReac Type Severity Reaction Status Date / Time No Known Allergies Allergy Verified 02/06/18 11:49 Review of Systems ROS Unobtainable All other systems reviewed negative except as stated in HPI [facility] Medical History Medical History ADHD (Acute) COPD (chronic obstructive pulmonary disease) (Acute) Depression (Acute) Hematoma of hip (Acute) Pneumonia (Acute) Surgical History Surgical History H/O shoulder replacement (Acute) History of hip replacement, total (Acute) Social History Social History Substance History: No History of Abuse Second Hand Smoke Exposure: No Smoking Status: Former smoker How Often Do You Have a Drink Containing Alcohol: Never Recent Travel in [place] within the Last 8 Weeks: No Recent Out of Country Travel within the Last 8 Weeks: No Immunization History Tetanus Immunization: <5 Years Hx Influenza Vaccine This Season: No Exam Narrative Exam Narrative: GENERAL: Well appearing SKIN: Focused skin assessment warm/dry. Has an opening to surgical scar on the left hip, drainage noted, opening about 5 cms. Erythematous and warm to the touch. HEAD: Atraumatic. Normocephalic. EYES: Pupils equal and round. No scleral icterus. No injection or drainage. ENT: No nasal bleeding or discharge. Mucous membranes pink and moist. NECK: Trachea midline. No JVD. CARDIOVASCULAR: Regular rate and rhythm. No murmur appreciated. RESPIRATORY: No accessory muscle use. Clear to auscultation. Breath sounds equal bilaterally. GASTROINTESTINAL: Abdomen soft, non-tender, nondistended. Hepatic and splenic margins not palpable. MUSCULOSKELETAL: No obvious deformities. No clubbing. No cyanosis. No edema. Full ROM of the upper and lower extremities bilaterally. 2+ pulses bilaterally. Neurovascularly intact. NEUROLOGICAL: Awake and alert. No obvious cranial nerve deficits. Motor grossly within normal limits. Normal speech. PSYCHIATRIC: Appropriate mood and affect; insight and judgment normal. Course Initial Documented Vital Signs Temperature 98.5 F 02/06/18 11:16 Pulse Rate 81 02/06/18 11:16 Respiratory Rate 16 02/06/18 11:16 Blood Pressure 155/73 H 02/06/18 11:16 Pulse Oximetry 98 02/06/18 11:16 Last Documented Vital Signs Temperature 98.5 F 02/06/18 11:48 Pulse Rate 80 02/06/18 11:48 Respiratory Rate 18 02/06/18 11:48 Blood Pressure 149/77 H 02/06/18 11:48 Pulse Oximetry 100 02/06/18 11:48 Medical Decision Making CARY Attestation CARY supervised visit: Yes MDM Narrative Medical decision making narrative: 67-year-old male the presents to the ED for evaluation of left hip infection. Patient was properly examined and was found to have signs and symptoms consistent appears to be infection of the surgical site. Labs and imaging order. Case discussed with Dr. Simon in person who recommends CT scan, admission, n.p.o. and likely surgery tonight. No antibiotics at this time until patient gets the surgery. He wants the patient to be admitted to the medical service with infectious disease consultation. Labs and imaging order. Patient agrees to proceed. Labs showed elevated CK and ESR. anemia. This appears to be improved from labs done on December. Case discussed with attending Dr Turner who agrees with plan. Patient was admitted to Dr Estrada who agrees with admission. Differential Diagnosis Differential Diagnosis: Skin infection versus abscess versus cellulitis versus infected joint Medical Records Medical records reviewed: Yes I reviewed the patient's medical records. Lab Data Lab results reviewed: Yes I reviewed the patient's lab results. Lab results narrative: CRp elevated 2.41 ESR 32 Result diagrams: 02/06/18 12:14 02/06/18 12:14 Lab Results 02/06/18 02/06/18 02/06/18 Range/Units 12:14 12:14 12:14 WBC 6.9 (4.0-11.0) th/mm3 RBC 4.47 L (4.50-5.90) mil/mm3 Hgb 9.2 L (13.0-17.0) gm/dL Hct 29.7 L (39.0-51.0) % MCV 66.4 L (80.0-100.0) fL MCH 20.5 L (27.0-34.0) pg MCHC 30.8 L (32.0-36.0) % RDW 20.0 H (11.6-17.2) % Plt Count 475 H (150-450) th/mm3 MPV 7.0 (7.0-11.0) fL Neut % (Auto) 69.2 (16.0-70.0) % Lymph % (Auto) 18.3 (9.0-44.0) % Teller % (Auto) 9.8 H (0.0-8.0) % Eos % (Auto) 1.8 (0.0-4.0) % Baso % (Auto) 0.9 (0.0-2.0) % Neut # (Auto) 4.8 (1.8-7.7) th/mm3 Lymph # (Auto) 1.3 (1.0-4.8) th/mm3 Teller # (Auto) 0.7 (0.0-0.9) th/mm3 Eos # (Auto) 0.1 (0.0-0.4) th/mm3 Baso # (Auto) 0.1 (0.0-0.2) th/mm3 WBC Differential . Differential Comment Auto diff final ESR (0-20) mm/hr Sodium 140 (136-145) meq/L Potassium 4.3 (3.5-5.1) meq/L Chloride 108 H (98-107) meq/L Carbon Dioxide 25.5 (21.0-32.0) meq/L Anion Gap 7 (5-15) meq/L BUN 17 (7-18) mg/dL Creatinine 0.85 (0.60-1.30) mg/dL Estimated GFR Greater than 89 (>89) mL/min Random Glucose 83 (74-106) mg/dL Lactic Acid 1.1 (0.4-2.0) mmol/L Calcium 8.5 (8.5-10.1) mg/dL Total Bilirubin 0.3 (0.2-1.0) mg/dL AST 10 L (15-37) U/L ALT 17 (12-78) U/L Alkaline Phosphatase 103 (45-117) U/L C-Reactive Protein (0.00-0.30) mg/dL Total Protein 6.8 (6.4-8.2) g/dL Albumin 2.9 L (3.4-5.0) g/dL 18 02/06/18 Range/Units 12:14 12:14 WBC (4.0-11.0) th/mm3 RBC (4.50-5.90) mil/mm3 Hgb (13.0-17.0) gm/dL Hct (39.0-51.0) % MCV (80.0-100.0) fL MCH (27.0-34.0) pg MCHC (32.0-36.0) % RDW (11.6-17.2) % Plt Count (150-450) th/mm3 MPV (7.0-11.0) fL Neut % (Auto) (16.0-70.0) % Lymph % (Auto) (9.0-44.0) % [place]eller % (Auto) (0.0-8.0) % Eos % (Auto) (0.0-4.0) % Baso % (Auto) (0.0-2.0) % Neut # (Auto) (1.8-7.7) th/mm3 Lymph # (Auto) (1.0-4.8) th/mm3 Teller # (Auto) (0.0-0.9) th/mm3 Eos # (Auto) (0.0-0.4) th/mm3 Baso # (Auto) (0.0-0.2) th/mm3 WBC Differential Differential Comment ESR 32 H (0-20) mm/hr Sodium (136-145) meq/L Potassium (3.5-5.1) meq/L Chloride (98-107) meq/L Carbon Dioxide (21.0-32.0) meq/L Anion Gap (5-15) meq/L BUN (7-18) mg/dL Creatinine (0.60-1.30) mg/dL Estimated GFR (>89) mL/min Random Glucose (74-106) mg/dL Lactic Acid (0.4-2.0) mmol/L Calcium (8.5-10.1) mg/dL Total Bilirubin (0.2-1.0) mg/dL AST (15-37) U/L ALT (12-78) U/L Alkaline Phosphatase (45-117) U/L C-Reactive Protein 2.41 H (0.00-0.30) mg/dL Total Protein (6.4-8.2) g/dL Albumin (3.4-5.0) g/dL Imaging Data Attestation: I personally reviewed and interpreted this imaging study as follows : (Ekg shows sinus rhythm with no sign of acute ischemia or arrhythmia read by me and attending.) Radiologist's impression: ITS Impressions Chest X-Ray 02/06/18 12:27 CONCLUSION: Compensated cardiomegaly otherwise negative Discharge Plan Physicians Team ED Provider: Alberto Turner ED Midlevel Provider: Med Dutton Primary Care Provider: Carson Piedra Attending Provider: Faisal Estrada Other Providers: Angel Cantu Rxs /Orders / Referrals /Forms Prescriptions: No Action celecoxib [Celebrex] 200 mg Capsule 200 mg PO DAILY RF: 0 doxycycline hyclate 100 mg Capsule 100 mg PO BID RF: 0 hydrocodone-acetaminophen 5-325 mg Tablet 1 tab PO Q4-6H PRN (Reason: Pain) RF: 0 tramadol 50 mg Tablet 50 mg PO Q6H PRN (Reason: Pain) RF: 0 venlafaxine 50 mg Tablet 50 mg PO DAILY RF: 0 fluticasone-vilanterol [Breo Ellipta] 100-25 mcg/dose Blister With Device 1 inh INHALATION DAILY RF: 0 dextroamphetamine-amphetamine [Adderall] 30 mg Tablet 30 mg PO TID RF: 0 Discharge Interventions Interventions: Vital Signs Last Done: 02/06/18 11:48 Status ED Status: Admitted Patient
[2018-02-06 12:51] LABS: Albumin 2.9 g/dL (3.4-5.0); Anion Gap 7 meq/L (5-15); Aspartate Aminotransferase 10 U/L (15-37); Blood Urea Nitrogen 17 mg/dL (7-18); Calcium 8.5 mg/dL (8.5-10.1); Carbon Dioxide 25.5 meq/L (21.0-32.0); Chloride 108 meq/L (98-107); Glomerular Filtration Rate Greater Than 89 mL/min (>89); Glucose,Random 83 mg/dL (74-106); Potassium 4.3 meq/L (3.5-5.1); Sodium 140 meq/L (136-145)
[2018-02-06 12:55] LABS: Alanine Aminotransferase 17 U/L (12-78); Alkaline Phosphatase 103 U/L (45-117); Total Protein 6.8 g/dL (6.4-8.2)
--- NOTE | 2018-02-06 13:13 | XR ---
EXAM DATE: 02/06/2018 1:03 PM EDT AGE/SEX: 67 years / Male INDICATIONS: Evaluate for pneumonia, pneumothorax and other communicable diseases. Pre-op for left h ip surgery. CLINICAL DATA: This is the patient's initial encounter. Patient reports that signs and symptoms have been present for 1 day and indicates a pain score of 0/10. MEDICAL/SURGICAL HISTORY: None. . Left total hip replacement. [place] [facility] [place]. . FINDINGS: A single AP view of the chest demonstrates the lungs to be symmetrically aerated without evidence of mass, infiltrate or effusion. Prominent cardiac silhouette. Total shoulder arthroplasty on the left CONCLUSION: Compensated cardiomegaly otherwise negative Electronically signed by: Howard Sommer MD 02/06/2018 1:11 PM EDT
[2018-02-06] MEDS ORDERED: Bisacodyl 10 MG Supp RECTAL PRN (13:47)
[2018-02-06] MEDS ORDERED: Acetaminophen 325 MG Tablet PO PRN ×2 (13:47→15:00)
[2018-02-06] MEDS ORDERED: Naloxone Inj 0.4 MG/ML Vial IV.PUSH PRN (13:55)
[2018-02-06] MEDS ORDERED: Morphine Inj 4 MG/ML Vial IV.PUSH PRN (13:55)
[2018-02-06] MEDS ORDERED: Dextrose 50% in Water 50 ML Vial IV.PUSH PRN (13:57)
--- NOTE | 2018-02-06 14:46 | P.HP ---
History of Present Illness Primary Care Physician: Carson Piedra MD History of Present Illness: This is a 67-year-old male with a history of left hip surgery 4 months ago. 5 weeks later he developed pain and was found to have hematoma. About 4 weeks ago , he had increased swelling, pain and redness and underwent bedside aspiration by his orthopedist Dr. Shen Simon. He was then started on doxycycline. Denies fever and chills. About a week ago, swelling has worsened as well as pain and redness noted pointing and last night started draining yellow material. Pain is severe when he raises his leg and radiates to his buttock. He was then advice by Dr. Simon to present to the emergency department and found to have possible infected hematoma and will undergo surgical intervention later today. Medical service has been requested to admit the patient. All other systems reviewed negative - Diagnosis (1) Hematoma of left hip (2) Bilateral lower extremity edema Inpatient Certification: I certify that the inpatient services were ordered in accordance with Medicare regulations governing the order. This includes certification that hospital inpatient services are reasonable and necessary and in the case of services not specified as inpatient-only under 42 CFR 419.22(n), that they are appropriately provided as inpatient services in accordance to with the 2-midnight benchmark under 43 CFR 412.3(e) Estimated Total Length of Stay (Days): 2 Plans for Post Hospital Care: Not yet determined PMFSH - History History Provided By: Patient - Medical History Medical History: Medical History (Last Reviewed 02/06/18 @ 12:43 by PATEL Gutiérrez) ADHD COPD (chronic obstructive pulmonary disease) Depression Hematoma of hip Pneumonia - Surgical History Surgical History: Surgical History (Last Reviewed 02/06/18 @ 12:43 by PATEL Gutiérrez) H/O shoulder replacement History of hip replacement, total - Family History Family History: Family History (Last Updated 02/06/18 @ 17:53 by Faisal Estrada MD) Other Family history non-contributory - Tobacco History Second Hand Smoke Exposure: No Tobacco Use In Past 30 Days: No Smoking Status: Former smoker - Alcohol History How Often Do You Have a Drink Containing Alcohol: Never - Substance Use History Substance History: No History of Abuse - Travel History Recent Travel in the [place] Within the Last 8 Weeks: No Recent Travel Out of the Country Within the Last 8 Weeks: No - Immunization History Tetanus Immunization: <5 Years Hx Influenza Vaccine This Season: No Medications and Allergies Active Medications: Active Medications Acetaminophen (Tylenol) 650 mg PO Q4H PRN PRN Reason: Temp > 100.4 Acetaminophen (Tylenol) 650 mg PO Q6HR PRN PRN Reason: PAIN SCALE 1 TO 2 Hydrocodone Bitart/Acetaminophen ([place] 5/325) 1 tab PO Q4H PRN PRN Reason: PAIN SCALE 3 TO 5 Hydrocodone Bitart/Acetaminophen ([place] 7.5/325) 1 tab PO Q4H PRN PRN Reason: PAIN SCALE 6 TO 10 Albuterol (Albuterol Neb (Prn)) 2.5 mg NEB Q2H PRN PRN Reason: SHORTNESS OF BREATH Amphetamine/Dextroamphetamine (Adderall) 30 mg PO TID [facility] Bisacodyl (Dulcolax Supp) 10 mg RECTAL DAILY PRN PRN Reason: SEVERE CONSITIPATION Dextrose (D50w Vial) 50 ml IV.PUSH UNSCH PRN PRN Reason: PER HYPOGLYCEMIA PROTOCOL Fluticasone/Vilanterol (Breo Ellipta 100/25 Mcg Inh) puff INH DAILY [facility] Glucagon (Glucagon Inj) 1 mg OTHER PRN PRN PRN Reason: for Hypoglycemia Protocol Sodium Chloride (Ns Inj) 1,000 mls @ 70 mls/hr IV.CONT .[id number] [facility] Lactulose (Lactulose Liq) 30 ml PO DAILY PRN PRN Reason: SEVERE CONSITIPATION Morphine Sulfate (Morphine Inj) 2 mg IV.PUSH Q3H PRN PRN Reason: BREAKTHROUGH PAIN Naloxone HCl (Narcan Inj) 0.4 mg IV.PUSH UNSCH PRN PRN Reason: SEE LABEL COMMENTS Non-Formulary Medication (Venlafaxine [Venlafaxine]) 50 mg PO DAILY [facility] Ondansetron HCl (Zofran Odt) 4 mg PO Q6H PRN PRN Reason: NAUSEA OR VOMITING Senna/Docusate Sodium (Lety-Colace) 1 tab PO BID [facility] Sennosides (Senokot) 17.2 mg PO Q12H PRN PRN Reason: Moderate Constipation Sodium Chloride (Ns Flush) 2 ml IV.FLUSH BID [facility] Sodium Chloride (Ns Flush) 2 ml IV.FLUSH PRN PRN PRN Reason: FLUSH AFTER USING IV ACCESS Allergies Allergy/AdvReac Type Severity Reaction Status Date / Time No Known Allergies Allergy Verified 02/06/18 11:49 Home Medications Medication Instructions Recorded Confirmed Type celecoxib [Celebrex] 200 mg PO DAILY 02/06/18 02/06/18 History dextroamphetamine-amphetamine 30 mg PO TID 02/06/18 02/06/18 History [Adderall] doxycycline hyclate 100 mg PO BID 02/06/18 02/06/18 History fluticasone-vilanterol [Breo 1 inh INHALATION DAILY 02/06/18 02/06/18 History Ellipta] hydrocodone-acetaminophen 1 tab PO Q4-6H PRN 02/06/18 02/06/18 History tramadol 50 mg PO Q6H PRN 02/06/18 02/06/18 History venlafaxine 50 mg PO DAILY 02/06/18 02/06/18 History Exam Vital signs: Vital Signs 02/06/18 11:16 02/06/18 11:28 02/06/18 11:48 Temperature 98.5 F 98.5 F 98.5 F Pulse Rate 81 79 80 Respiratory Rate 16 18 18 Blood Pressure 155/73 H 149/77 H 149/77 H Pulse Oximetry 98 100 100 Intake & Output 02/05/18 02/06/18 02/06/18 18:59 06:59 18:59 Weight 88.451 kg Narrative: GENERAL: This is a well-nourished, well-developed patient, in no apparent distress. Skin is warm no rash HEENT normocephalic atraumatic pupils reactive to light Neck no JVD no bruit CARDIOVASCULAR: Regular rate and rhythm without murmurs, gallops, or rubs. RESPIRATORY: Clear to auscultation. Breath sounds equal bilaterally. No wheezes , rales, or rhonchi. GASTROINTESTINAL: Abdomen soft, non-tender, nondistended. Normal active bowel sounds MUSCULOSKELETAL: Extremities without clubbing, cyanosis but with bilateral lower extremity pitting edema. Left hip is swollen, warm and tender with dressing NEURO: Alert & Oriented x4 to person, place, time, situation. Moves all ext x4 Results - Labs CBC & Chem 7: 02/06/18 12:14 02/06/18 12:14 Labs: Laboratory Results - last 24 hr 02/06/18 02/06/18 02/06/18 12:14 12:14 12:14 WBC 6.9 RBC 4.47 L Hgb 9.2 L Hct 29.7 L MCV 66.4 L MCH 20.5 L MCHC 30.8 L RDW 20.0 H Plt Count 475 H MPV 7.0 Neut % (Auto) 69.2 Lymph % (Auto) 18.3 [place] % (Auto) 9.8 H Eos % (Auto) 1.8 Baso % (Auto) 0.9 Neut # (Auto) 4.8 Lymph # (Auto) 1.3 [place] # (Auto) 0.7 Eos # (Auto) 0.1 Baso # (Auto) 0.1 WBC Differential . Differential Comment Auto diff final ESR Sodium 140 Potassium 4.3 Chloride 108 H Carbon Dioxide 25.5 Anion Gap 7 BUN 17 Creatinine 0.85 Estimated GFR Greater than 89 Random Glucose 83 Lactic Acid 1.1 Calcium 8.5 Total Bilirubin 0.3 AST 10 L ALT 17 Alkaline Phosphatase 103 C-Reactive Protein Total Protein 6.8 Albumin 2.9 L 02/06/18 02/06/18 12:14 12:14 WBC RBC Hgb Hct MCV MCH MCHC RDW Plt Count MPV Neut % (Auto) Lymph % (Auto) [place] % (Auto) Eos % (Auto) Baso % (Auto) Neut # (Auto) Lymph # (Auto) [place] # (Auto) Eos # (Auto) Baso # (Auto) WBC Differential Differential Comment ESR 32 H Sodium Potassium Chloride Carbon Dioxide Anion Gap BUN Creatinine Estimated GFR Random Glucose Lactic Acid Calcium Total Bilirubin AST ALT Alkaline Phosphatase C-Reactive Protein 2.41 H Total Protein Albumin - Imaging Impressions Chest X-Ray 02/06/18 12:27 CONCLUSION: Compensated cardiomegaly otherwise negative Caprini VTE Risk Assessment Caprini VTE Risk Assessment: Moderate/High Risk (score >= 2) Caprini Risk Assessment Model: Point Value = 1 Point Value = 2 Point Value = 3 Point Value = 5 Age 41-60 Minor surgery BMI > 25 kg/m2 Swollen legs Varicose veins or History of unexplained or recurrent spontaneous Oral contraceptives or hormone replacement Sepsis (< 1 month) Serious lung disease, including pneumonia (< 1 month) Abnormal pulmonary function Acute myocardial infarction Congestive heart failure (< 1 month) History of inflammatory bowel disease Medical patient at bed rest Age 61-74 Arthroscopic surgery Major open surgery (> 45 min) Laparoscopic surgery (> 45 min) Malignancy Confined to bed (> 72 hours) Immobilizing plaster cast Central venous access Age >= 75 History of VTE Family history of VTE Factor V Leiden Prothrombin [id number] Lupus anticoagulant Anticardiolipin antibodies Elevated serum homocysteine Heparin-induced thrombocytopenia Other congenital or acquired thrombophilia Stroke (< 1 month) Elective arthroplasty Hip, pelvis, or leg fracture Acute spinal cord injury (< 1 month) Prophylaxis Regimen: Total Risk Factor Score Risk Level Prophylaxis Regimen 0-1 Low Early ambulation 2 Moderate Order ONE of the following: *Sequential Compression Device (SCD) *Heparin 5000 units SQ BID 3-4 Higher Order ONE of the following medications: *Heparin 5000 units SQ TID *Enoxaparin/Lovenox 40 mg SQ daily (WT < 150 kg, CrCl > 30 mL/min) *Enoxaparin/Lovenox 30 mg SQ daily (WT < 150 kg, CrCl > 10-29 mL/min) *Enoxaparin/Lovenox 30 mg SQ BID (WT < 150 kg, CrCl > 30 mL/min) AND/OR *Sequential Compression Device (SCD) 5 or more Highest Order ONE of the following medications: *Heparin 5000 units SQ TID (Preferred with Epidurals) *Enoxaparin/Lovenox 40 mg SQ daily (WT < 150 kg, CrCl > 30 mL/min) *Enoxaparin/Lovenox 30 mg SQ daily (WT < 150 kg, CrCl > 10-29 mL/min) *Enoxaparin/Lovenox 30 mg SQ BID (WT < 150 kg, CrCl > 30 mL/min) AND *Sequential Compression Device (SCD) Assessment and Plan - Assessment (1) Hematoma of left hip Code(s): S70.02XA - Contusion of left hip, initial encounter Status: Acute (2) Bilateral lower extremity edema Code(s): R60.0 - Localized edema Status: Acute - Plan This is a 67-year-old male with a history of left hip surgery 4 months ago. He presents with hematoma with increasing swelling, pain and erythema on doxycycline. Left hip hematoma possibly infected with failed outpatient treatment. Discussed with ER physician, orthopedic surgery has requested to keep patient n.p.o. and hold off antibiotics until surgical intervention later today. We will follow-up wound and blood cultures taken in the emergency department. Pain management with Lortab and IV morphine counseled regarding narcotics. BLE edema. Denies history of heart failure no shortness of breath, chest pain and hemoptysis. Kidney function unremarkable. EKG tracing interpreted by me with sinus rhythm. Chest x-ray image interpreted by me with cardiomegaly but no signs of heart failure. Because of impaired mobility, patient at risk for DVT will obtain Doppler sonogram. Patient also with low albumin which could be contributing. Add ensure Multiple medical conditions of anemia, ADD and depression. Stable ct op meds DVT prophylaxis with SCD and early ambulation. Hold chemicals pending ortho intervention Discussed Condition With: Patient Discharge Planning: Per orthopedic surgery
[2018-02-06 14:49] LABS: Activated Partial Thrombo Time 30.6 sec (24.3-30.1); INR 1.1 Ratio
--- NOTE | 2018-02-06 15:04 | CT ---
EXAM DATE: 02/06/2018 2:52 PM EDT AGE/SEX: 67 years / Male INDICATIONS: Left total hip three months ago, open wound. CLINICAL DATA: This is the patient's initial encounter. Patient reports that signs and symptoms have been present for 3 months and indicates a pain score of 7/10. MEDICAL/SURGICAL HISTORY: Chronic obstructive pulmonary disease. . left total hip RADIATION DOSE: 45.1 CTDI (mGy) COMPARISON: . TECHNIQUE: Multiple contiguous axial images were acquired using a multirow detector CT scanner withou t contrast and after intravenous administration of 70 ml Omnipaque 350 (iohexol) nonionic water-solu ble contrast as a single exam dose. Multiplanar reconstruction was performed in the sagittal and cor onal planes. Using automated exposure control and adjustment of the mA and/or kV according to patien t size, radiation dose was kept as low as reasonably achievable to obtain optimal diagnostic quality images. DICOM format image data is available electronically for review and comparison. FINDINGS: Total hip arthroplasty in place on the left. There is air in the soft tissues of the lateral buttocks . There is confined to subcutaneous tissues. There is apparent hematoma in the gluteus muscle. Extens parth artifact is present from the total hip. I don't see a joint effusion evident. I don't see a pelvic fracture. CONCLUSION: 1. Air in the soft tissues at apparent site of open wound most of induration confined to subcutaneou s tissues. There appear to be a hematoma in the gluteus muscle. 2. Don't see ancillary signs of infection. Electronically signed by: Howard Sommer MD 02/06/2018 3:03 PM EDT
[2018-02-06] MEDS: Sod Chloride 0.9% Inj 1,000 ML IV.CONT SCH (15:11)
--- NOTE | 2018-02-06 15:50 | US ---
EXAM DATE: 02/06/2018 3:46 PM EDT AGE/SEX: 67 years / Male INDICATIONS: Bilateral leg swelling. CLINICAL DATA: This is the patient's initial encounter. Patient reports that signs and symptoms have been present for 1 week and indicates a pain score of 2/10. MEDICAL/SURGICAL HISTORY: Chronic obstructive pulmonary disease. ADHD. Depression. Hip hematoma . Pneumonia. . Shoulder replacement. Hip replacement. COMPARISON: No prior exams available for comparison. TECHNIQUE: Venous ultrasound of both lower extremities was performed from the inguinal ligament to t he proximal calf. Real-time, color Doppler and spectral tracing, compression and augmentation techni ques were used. FINDINGS: Right Leg: Normal compression of the deep venous system from the inguinal region to the proximal kae f. No echogenic clot is seen. Normal response of the venous system to augmentation and respiration. Left Leg: Normal compression of the deep venous system from the inguinal region to the proximal calf . No echogenic clot is seen. Normal response of the venous system to augmentation and respiration. Other: None. CONCLUSION: Negative for deep venous thrombosis. Howard Sommer MD FACR Electronically signed by: Howard Sommer MD 02/06/2018 3:48 PM EDT
--- NOTE | 2018-02-06 16:17 | MB ---
cc: Ovidio Simon MD DATE: 02/06/2018 REASON FOR CONSULTATION: Draining wound, left hip. HISTORY OF PRESENT ILLNESS: This pleasant 67-year-old male is seen today for a draining left hip wound infection. The patient originally underwent a left total hip arthroplasty 4 months ago. Within a week or 2 after surgery, he had developed a hematoma which dissipated over time. He had been on blood thinners. Then, about 3 weeks or so ago, he developed another hematoma and was put back on doxycycline, which he feels helped and he was followed weekly with less and less involvement. However, over the last day, the patient noticed that the incision line had opened up and he started draining purulent material for which he went to the emergency room today. He states his pain is primarily over this area and also in his buttock, but not in the groin itself. OTHER PAST HISTORY: He has a history of having been hospitalized at [facility] in August for pneumonia. Otherwise, he does not recall any problem with his hemoglobin. He has history also some COPD and depression and ADHD. REVIEW OF SYSTEMS: Noncontributory. FAMILY HISTORY: Noncontributory. SOCIAL HISTORY: He does work. He does not smoke. He used to smoke. He does not drink. ALLERGIES: HAS NO ALLERGIES. PHYSICAL EXAMINATION: GENERAL: Orthopedically, he ambulates with an antalgic gait. VITAL SIGNS: He is afebrile. His vital signs are stable. SKIN: The wound on his left hip is draining purulent material. It is 1 cm in diameter. EXTREMITIES: He is neurovascularly intact to his toes. LABORATORY DATA: Blood work done thus far reveals a sedimentation rate of 32 and C-reactive protein of 2.41, which is down from what it was 2 weeks ago. IMAGING STUDIES: CAT scan done in the emergency room also revealed that this is mostly a subcutaneous infection and does not appear to go into the joint itself. IMPRESSION AT THIS TIME: Infected bursitis or hematoma outside the total hip deep wound area. PLAN: Plan is for the patient to undergo an Infectious Disease consult, medical clearance, followed by irrigation and debridement of his wound and exploration. If it is found to go deep, he will need debridement of the total hip arthroplasty as well. J. MD CAR Paige/ALYSSA , 03:45 PM , 04:15 PM
--- NOTE | 2018-02-06 17:01 | MB ---
cc: Angel Cantu MD DATE: 02/06/2018 DATE OF CONSULTATION: 02/06/2018 REQUESTING PHYSICIAN: Dr. Estrada. REASON: Infected hematoma left hip. HISTORY OF PRESENT ILLNESS: This is a 67-year-old white male who underwent left hip replacement approximately 4 months ago. The patient developed hematoma at the left hip and he was monitored by the orthopedic physician. He was put on oral doxycycline, which he took for about a month. Apparently he was doing well, but approximately 4 days ago, the area of the left hip appeared more swollen and erythematous and it formed a tiny protruding round lesion which then started to drain serous fluid. The patient was further evaluated and now admitted. He reports that at one time he was coming from work and he had put some gauze on the area and felt that the gauze was very saturated and was draining what looked like serous drainage. He underwent CT scan of the hip today, which shows air in the soft tissues at apparent site of open wound. Most of the induration is confined to subcutaneous tissues. There appeared to be hematoma at the gluteus muscle. The patient notes that he gets pain in the left posterior buttock area whenever he tries to raise his leg in bed. His white count is 6.9. Sedimentation rate is 32. C-reactive protein is 2.4. At one point, there was a sample of fluid sent for evaluation for infection and it was negative. At that time, the patient states that the area was just reddened and it was lightly explored with a needle and a very tiny amount of fluid was retrieved and sent for culture. PAST MEDICAL HISTORY: ADHD, depression, chronic obstructive pulmonary disease, pneumonia, hematoma of the left hip. PAST SURGICAL HISTORY: History of left shoulder replacement, history of left hip replacement. ALLERGIES: NO KNOWN DRUG ALLERGIES. MEDICATIONS: Hydrocodone 7.5, Effexor, Breo Ellipta. SOCIAL HISTORY: No tobacco, no alcohol, no illicit drugs. FAMILY HISTORY: Noncontributory. REVIEW OF SYSTEMS: All other systems reviewed and negative. PHYSICAL EXAMINATION: GENERAL: Well-developed male who is in no acute distress. He is awake and alert and oriented. VITAL SIGNS: Temperature 98.5, BP 147/80, respirations 18, heart rate 72. HEENT: Head is atraumatic and normocephalic. Extraocular movements grossly intact. Her pupils are reactive to light. No icterus. Oropharynx: Mucosa moist. No visible lesions. NECK: Supple without adenopathy or swelling. LUNGS: Clear. HEART: Regular S1, S2, without murmurs, rubs or gallops. ABDOMEN: Bowel sounds present. Soft, nontender. RECTAL: Not performed. EXTREMITIES: The left hip has an area of erythema and edema in the area of recent surgery. There is a bulge of purplish discoloration over the incision laterally. There is serous drainage on the dressing. The area around the incision is firm and has mild induration. The other extremities have edema of both ankles and tibias, approximately 2+ pitting. SKIN: No diffuse rash. NEUROLOGIC: Nonfocal. PSYCHIATRIC: Normal affect. LABORATORY DATA: WBC 6.9, platelets 475, hemoglobin 9.2, 69 percent neutrophils and 18 percent lymphocytes, 9% monocytes. Creatinine 0.85, BUN 17, sodium 140. Liver function tests normal. IMPRESSION: 1. Hematoma of the left hip following left hip replacement. 2. Possible infected left hip hematoma. However, unable to determine for sure whether there is infection versus noninfected hematoma. RECOMMENDATIONS: 1. Monitor the wound culture. 2. Monitor blood culture. 3. Would hold off on antibiotics pending the culture and obtain new culture on exploration of the wound tomorrow as planned. 4. Monitor for temperature and signs of worsening infection. 5. Antibiotics will be started immediately after the procedure and the cultures will be followed to determine if he will need antibiotics. 6. Discussed with Dr. Simon. I will follow the patient's progress and make further recommendations upon followup as necessary. MD CYNTHIA Lobo/ALYSSA , 04:29 PM , 04:59 PM REBEL
[2018-02-06] MEDS: Amphetamine/Dextroamphetamine 30 MG Tablet PO SCH (21:35)
[2018-02-06] MEDS: Senna/Docusate Sodium 8.6/50 MG Tablet PO SCH (21:37)
[2018-02-07] MEDS: Sod Chloride 0.9% Inj 1,000 ML IV.CONT SCH (05:00)
[2018-02-07 08:10] LABS: Anion Gap 7 meq/L (5-15); Blood Urea Nitrogen 13 mg/dL (7-18); Calcium 8.4 mg/dL (8.5-10.1); Carbon Dioxide 25.9 meq/L (21.0-32.0); Chloride 109 meq/L (98-107); Glomerular Filtration Rate Greater Than 89 mL/min (>89); Glucose,Random 91 mg/dL (74-106); Sodium 142 meq/L (136-145)
[2018-02-07] MEDS: Amphetamine/Dextroamphetamine 30 MG Tablet PO SCH ×2 (08:18→21:56)
[2018-02-07] MEDS: Senna/Docusate Sodium 8.6/50 MG Tablet PO SCH ×2 (08:18→20:37)
--- NOTE | 2018-02-07 08:45 | P.PN ---
Subjective Interval history: Follow up for left hip hematoma and infection, failed outpatient. The patient reports continued left hip pain, exacerbated by any movement or ambulation, relieved by lying still. Denies fevers/chills. Denies any other medical complaints at this time. Going to OR today. Physical Exam Vital signs: Vital Signs 02/06/18 11:16 02/06/18 11:28 02/06/18 11:48 Temperature 98.5 F 98.5 F 98.5 F Pulse Rate 81 79 80 Respiratory Rate 16 18 18 Blood Pressure 155/73 H 149/77 H 149/77 H Pulse Oximetry 98 100 100 02/06/18 13:47 02/06/18 15:28 02/06/18 17:09 Temperature 97.8 F Pulse Rate 72 72 79 Respiratory Rate 17 17 18 Blood Pressure 144/79 H 147/80 H 145/80 H Pulse Oximetry 99 99 97 02/06/18 17:21 02/06/18 21:55 02/07/18 00:00 Temperature 98.7 F 97.8 F 98.1 F Pulse Rate 66 68 72 Respiratory Rate 18 18 18 Blood Pressure 154/80 H 147/79 H 138/75 Pulse Oximetry 100 98 95 02/07/18 04:00 02/07/18 07:27 Temperature 97.8 F 98.2 F Pulse Rate 66 68 Respiratory Rate 18 14 Blood Pressure 144/84 H 161/81 H Pulse Oximetry 100 97 Intake & Output 02/06/18 02/07/18 02/07/18 18:59 06:59 18:59 Intake Total 1000 / 1000 420 / 420 Balance 1000 / 1000 420 / 420 Weight 88.451 kg Intake: IV 1000 / 1000 NS Inj 1,000 ML @ 70 mls/hr IV. 1000 / 1000 CONT .[id number] AHMET Rx#:[id number] Oral 420 / 420 Other: # Voids 3 Date of Last Bowel Movement 02/06/18 Weight On Admission 88.451 kg Narrative: GENERAL: Well-nourished, well-developed pleasant male patient in [facility]. SKIN: Warm and dry. No rash. HEENT: Normocephalic. Atraumatic. Pupils equal and round. Mucous membranes pink and moist. NECK: Supple. Trachea midline. CARDIOVASCULAR: Regular rate and rhythm. No murmur appreciated. RESPIRATORY: No accessory muscle use. Clear to auscultation. Breath sounds equal bilaterally. GASTROINTESTINAL: Abdomen soft, non-tender, nondistended. Normoactive bowel sounds x4. MUSCULOSKELETAL: No obvious deformities. 1+ BLE edema. Left lateral hip with surgical dressing in place, CDI, some surrounding edema and warmth to touch. NEUROLOGICAL: Awake and alert. No obvious cranial nerve deficits. Motor grossly within normal limits. Moving all extremities spontaneously. Normal speech. Results - Labs CBC & Chem 7: 02/06/18 12:14 02/07/18 06:15 Laboratory Results - last 24 hr 02/06/18 02/06/18 02/06/18 12:14 12:14 12:14 WBC 6.9 RBC 4.47 L Hgb 9.2 L Hct 29.7 L MCV 66.4 L MCH 20.5 L MCHC 30.8 L RDW 20.0 H Plt Count 475 H MPV 7.0 Neut % (Auto) 69.2 Lymph % (Auto) 18.3 Noble % (Auto) 9.8 H Eos % (Auto) 1.8 Baso % (Auto) 0.9 Neut # (Auto) 4.8 Lymph # (Auto) 1.3 Noble # (Auto) 0.7 Eos # (Auto) 0.1 Baso # (Auto) 0.1 WBC Differential . Differential Comment Auto diff final ESR PT INR APTT Sodium 140 Potassium 4.3 Chloride 108 H Carbon Dioxide 25.5 Anion Gap 7 BUN 17 Creatinine 0.85 Estimated GFR Greater than 89 POC Glucose Random Glucose 83 Lactic Acid 1.1 Calcium 8.5 Magnesium Total Bilirubin 0.3 AST 10 L ALT 17 Alkaline Phosphatase 103 C-Reactive Protein Total Protein 6.8 Albumin 2.9 L 02/06/18 02/06/18 02/06/18 12:14 12:14 13:30 WBC RBC Hgb Hct MCV MCH MCHC RDW Plt Count MPV Neut % (Auto) Lymph % (Auto) Noble % (Auto) Eos % (Auto) Baso % (Auto) Neut # (Auto) Lymph # (Auto) Noble # (Auto) Eos # (Auto) Baso # (Auto) WBC Differential Differential Comment ESR 32 H PT 11.0 INR 1.1 APTT 30.6 H Sodium Potassium Chloride Carbon Dioxide Anion Gap BUN Creatinine Estimated GFR POC Glucose Random Glucose Lactic Acid Calcium Magnesium Total Bilirubin AST ALT Alkaline Phosphatase C-Reactive Protein 2.41 H Total Protein Albumin 02/06/18 02/07/18 02/07/18 18:06 06:15 06:15 WBC RBC Hgb Hct MCV MCH MCHC RDW Plt Count MPV Neut % (Auto) Lymph % (Auto) Noble % (Auto) Eos % (Auto) Baso % (Auto) Neut # (Auto) Lymph # (Auto) Noble # (Auto) Eos # (Auto) Baso # (Auto) WBC Differential Differential Comment ESR PT INR APTT Sodium 142 Potassium 4.0 Chloride 109 H Carbon Dioxide 25.9 Anion Gap 7 BUN 13 Creatinine 0.83 Estimated GFR Greater than 89 POC Glucose 116 H Random Glucose 91 Lactic Acid Calcium 8.4 L Magnesium 2.1 Total Bilirubin AST ALT Alkaline Phosphatase C-Reactive Protein Total Protein Albumin 02/07/18 08:11 WBC RBC Hgb Hct MCV MCH MCHC RDW Plt Count MPV Neut % (Auto) Lymph % (Auto) Noble % (Auto) Eos % (Auto) Baso % (Auto) Neut # (Auto) Lymph # (Auto) Noble # (Auto) Eos # (Auto) Baso # (Auto) WBC Differential Differential Comment ESR PT INR APTT Sodium Potassium Chloride Carbon Dioxide Anion Gap BUN Creatinine Estimated GFR POC Glucose 97 Random Glucose Lactic Acid Calcium Magnesium Total Bilirubin AST ALT Alkaline Phosphatase C-Reactive Protein Total Protein Albumin - Imaging Impressions Venous Doppler Study 02/06/18 00:00 CONCLUSION: Negative for deep venous thrombosis. Howard Sommer MD FACR Hip CT 02/06/18 12:25 CONCLUSION: 1. Air in the soft tissues at apparent site of open wound most of induration confined to subcutaneous tissues. There appear to be a hematoma in the gluteus muscle. 2. Don't see ancillary signs of infection. Chest X-Ray 02/06/18 12:27 CONCLUSION: Compensated cardiomegaly otherwise negative Assessment and Plan - Assessment (1) Hematoma of left hip Code(s): S70.02XA - Contusion of left hip, initial encounter Status: Acute (2) Bilateral lower extremity edema Code(s): R60.0 - Localized edema Status: Acute - Plan 67-year-old male with a history of left hip surgery 4 months ago. He presents with hematoma with increasing swelling, pain and erythema despite being on doxycycline. Left hip hematoma, suspected infection, failed outpatient treatment: acute -Left Hip CT reviewed, shows left BHRAGAV, air in the soft tissues at apparent site of open wound most of induration confined to subcutaneous tissues; hematoma in the gluteus muscle. -Consulted ortho, Dr. Simon plans to take the patient to the OR today for I& D -Per ER physician who discussed with orthopedics who requested to keep patient NPO and hold off antibiotics until surgical intervention. -Monitor wound and blood cultures collected in the ED -Pain control with Lortab and IV morphine prn -Further disposition per ortho BLE edema: Denies history of heart failure, no shortness of breath, chest pain. Possibly dependent edema. -Kidney function unremarkable. -EKG tracing reviewed, sinus rhythm. -Chest x-ray images reviewed, shows cardiomegaly but no signs of heart failure. -Doppler U/S negative for DVT -Patient also with low albumin which could be contributing. Add ensure. -Outpatient follow up if edema persists. Multiple medical conditions of anemia, ADD and depression. Stable, continue outpatient medications as appropriate. DVT prophylaxis: with SCD and early ambulation. Hold chemoprophylaxis with hematoma and pending ortho intervention. Discharge Planning: Discharge pending surgery and clearance from orthopedics.
[2018-02-07] MEDS ORDERED: Morphine Inj 4 MG/ML Vial IV.PUSH PRN (10:38)
[2018-02-07] MEDS ORDERED: Bisacodyl 10 MG Supp RECTAL PRN (10:38)
[2018-02-07] MEDS ORDERED: Post-op Orders (for Pharmacy) OTHER STA (10:38)
[2018-02-07] MEDS ORDERED: Tranexamic Acid Inj 1,000 MG in Sodium Chlor 0.9% Inj 100 ML IV.SIG SCH (12:00)
[2018-02-07] MEDS ORDERED: Sodium Chlor 0.9% Inj 250 ML IV.SIG ONE (12:00)
[2018-02-07] MEDS ORDERED: Lidocaine PF 1% Inj 5 ML Syringe INFILTRATN ONE (12:00)
[2018-02-07] MEDS ORDERED: Normosol-R pH 7.4 Inj 1,000 ML IV.CONT ONE (12:00)
[2018-02-07] MEDS ORDERED: Glycopyrrolate Inj 1 MG/5 ML Syringe IV.PUSH ONE (12:00)
[2018-02-07] MEDS ORDERED: Tranexamic Acid Inj 1,000 MG in Sodium Chlor 0.9% Inj 100 ML IV.SIG ONE (12:00)
[2018-02-07] MEDS ORDERED: Neostigmine Inj 5 MG/5 ML Syringe IV.PUSH ONE (12:00)
[2018-02-07] MEDS ORDERED: Sodium Chlor 0.9% Inj 500 ML IV.SIG ONE (12:00)
[2018-02-07] MEDS ORDERED: Phenylephrine/NS 1000 MCG/10ML Syringe IV.PUSH ONE (12:00)
[2018-02-07] MEDS ORDERED: Tobramycin Sulfate 1,200 MG Vial (for ortho/sterile core) OTHER ONE (12:13)
[2018-02-07] MEDS ORDERED: *morphine SULFATE 10 MG/ML PERIprocedure ONLY ONE ×2 (14:53→15:20)
--- NOTE | 2018-02-07 14:55 | MP ---
cc: Ovidio Simon MD DATE OF OPERATION: PREOPERATIVE DIAGNOSIS: Infection, left hip. POSTOPERATIVE DIAGNOSIS: Infection, left hip. SURGERY PERFORMED: Irrigation and debridement and application of wound VAC and insertion of Stimulan 25 mL beads impregnated with tobramycin and vancomycin. SURGEON: Ovidio Simon MD BANQUET WAITER/WAITRESS: certified speech pathologist assistant. ANESTHESIA: General intubation. PROCEDURE: The patient was brought to the operating room where, after successful induction of general anesthesia, the patient was placed on the operating room table in a right lateral decubitus position. The left hip and thigh were prepped and draped in the usual manner. Incision was then made centering over the area of abscess on the incision line of the left hip over the trochanter. Incision made 6 inches in length, carried down through subcutaneous tissue and into the fascia to the bursa over the trochanter, which was found to be completely inflamed and removed, sent to the lab for culture and sensitivity along with several cultures. The abscess was found to be essentially contained within the bursa of the greater trochanter with induration of the gluteus zahraa and soft tissues over the area, but no communication with the joint noted beyond this point. The wound was irrigated copiously with 6000 mL of antibiotic irrigation and 3000 mL of sterile saline. Debridement finished, all nonviable tissue removed. The Stimulan 25 mL with 1.2 gram of tobramycin and 1 gram of vancomycin was applied throughout the tissue that was inflamed. Some of the deep fascia approximated with interrupted 0 Monocryl and 2-0 Monocryl for the subcutaneous and the distal and proximal ends of the incision, leaving the original area in the center 2 inches wide open and covered with a wound VAC. A sterile dressing applied. The estimated blood loss was 150 mL. Sponge and suture count correct. No drain utilized. The patient tolerated the procedure well and left the operating room in satisfactory condition. Ovidio Simon MD JRR/TL , 02:35 PM , 02:53 PM
[2018-02-07] MEDS ORDERED: fentaNYL Citrate Inj 100 MCG/2 ML Ampul ONE (14:56)
[2018-02-07] MEDS ORDERED: Morphine Inj 4 MG/ML Vial ONE (14:57)
[2018-02-07] MEDS ORDERED: HYDROmorphone PF Inj 2 MG/ML Vial ONE (16:06)
--- NOTE | 2018-02-07 16:56 | ECG ---
Date Performed: 02/06/2018 Time Performed: 13:46:53 PTAGE: 67 years EKG: Sinus rhythm NORMAL ECG PREVIOUS TRACING : 10/10/2017 11.52 Since the previous tracing, no significant change noted DOCTOR: Markell John Interpretating Date/Time 02/07/2018 16:56:08
[2018-02-07] MEDS: Multivitamin/Minerals Therapeutic Tablet PO SCH (20:38)
[2018-02-07] MEDS ORDERED: Senna/Docusate Sodium 8.6/50 MG Tablet PO SCH (21:00)
[2018-02-08] MEDS: Vancomycin Inj 1,000 MG in Sodium Chlor 0.9% Inj 250 ML IV.SIG SCH ×2 (01:37→13:00)
[2018-02-08] MEDS: Sod Chloride 0.9% Inj 1,000 ML IV.CONT SCH ×2 (07:52→07:54)
[2018-02-08] MEDS: Amphetamine/Dextroamphetamine 30 MG Tablet PO SCH ×4 (07:52→20:46)
--- NOTE | 2018-02-08 08:10 | P.PNOP ---
Subjective Interval history: They with minimal complaints of pain. He states his pain that he had before surgery done his leg is gone. His dressing is dry and intact and the wound VAC is working. He is neurovascularly intact to his toes. Physical Exam Vital signs: Vital Signs 02/07/18 14:42 02/07/18 14:45 02/07/18 15:00 Temperature 97.4 F L Pulse Rate 74 72 66 Respiratory Rate 14 14 7 L Blood Pressure 134/80 156/78 H 156/77 H Pulse Oximetry 96 94 L 96 02/07/18 15:15 02/07/18 15:30 02/07/18 15:45 Temperature Pulse Rate 73 74 73 Respiratory Rate 14 8 L 13 Blood Pressure 157/77 H 149/71 H 134/63 Pulse Oximetry 98 96 96 02/07/18 16:00 02/07/18 16:15 02/07/18 16:30 Temperature Pulse Rate 74 84 66 Respiratory Rate 12 10 L 10 L Blood Pressure 127/59 L 116/54 L 123/60 Pulse Oximetry 02/07/18 17:00 02/07/18 18:00 02/07/18 20:00 Temperature 97.5 F L Pulse Rate 80 82 Respiratory Rate 12 17 Blood Pressure 149/81 H 140/76 Pulse Oximetry 96 02/07/18 20:37 02/07/18 21:00 02/07/18 21:45 Temperature 98.6 F Pulse Rate 68 Respiratory Rate 18 17 Blood Pressure 130/67 Pulse Oximetry 97 96 02/07/18 22:47 02/08/18 00:00 02/08/18 01:00 Temperature 97.8 F Pulse Rate 67 Respiratory Rate 18 19 18 Blood Pressure 127/69 Pulse Oximetry 97 02/08/18 03:00 02/08/18 03:30 02/08/18 04:00 Temperature 98.2 F Pulse Rate 66 Respiratory Rate 18 16 18 Blood Pressure 118/60 Pulse Oximetry 99 02/08/18 05:25 02/08/18 08:05 Temperature 98.6 F Pulse Rate 67 Respiratory Rate 18 18 Blood Pressure 119/63 Pulse Oximetry 95 Intake & Output 02/07/18 02/08/18 02/08/18 18:59 06:59 18:59 Intake Total 2320 / 2320 4500 / 4500 2250 / 2250 Output Total 650 / 650 600 / 600 Balance 1670 / 1670 3900 / 3900 2250 / 2250 Weight 88.5 kg Intake: IV 100 / 100 100 / 100 2250 / 2250 LR 1000 mL Inj 1,000 ML @ 80 1000 / 1000 mls/hr IV.CONT .[id number] AHMET Rx# :[id number] NS Inj 1,000 ML @ 70 mls/hr IV. 1000 / 1000 CONT .[id number] AHMET Rx#:[id number] Vancomycin Inj 1,000 MG In NS 250 / 250 Inj 250 ML @ 250 mls/hr IV.SIG Q12H AHMET Rx#:[id number] Ancef Inj 1,000 MG In NS Inj 100 / 100 100 / 100 100 ML @ 200 mls/hr IV.SIG Q6H AHMET Rx#:[id number] Oral 420 / 420 1400 / 1400 Anesthesia Amount 1800 / 1800 1800 / 1800 Other 1200 / 1200 Output: Urine 500 / 500 450 / 450 Estimated Blood Loss 150 / 150 150 / 150 Other: # Voids 1 Date of Last Bowel Movement 02/06/18 02/07/18 # Bowel Movements 0 # Incontinent Bowel Movements 0 Results - Labs CBC & Chem 7: 02/06/18 12:14 02/07/18 06:15 Laboratory Results - last 24 hr 02/07/18 02/07/18 02/07/18 06:15 08:11 10:50 Sodium 142 Potassium 4.0 Chloride 109 H Carbon Dioxide 25.9 Anion Gap 7 BUN 13 Creatinine 0.83 Estimated GFR Greater than 89 POC Glucose 97 Random Glucose 91 Calcium 8.4 L Blood Type O Negative Antibody Screen Negative MTS Gel Crossmatch See Detail 02/08/18 02/08/18 02/08/18 01:14 01:18 06:59 Sodium Potassium Chloride Carbon Dioxide Anion Gap BUN Creatinine Estimated GFR POC Glucose 536 H* 196 H 332 H Random Glucose Calcium Blood Type Antibody Screen MTS Gel Crossmatch 02/08/18 07:01 Sodium Potassium Chloride Carbon Dioxide Anion Gap BUN Creatinine Estimated GFR POC Glucose 157 H Random Glucose Calcium Blood Type Antibody Screen MTS Gel Crossmatch Microbiology 02/06/18 11:55 Abscess - Leg Gram Stain - Final 02/06/18 11:55 Abscess - Leg Wound Culture - Preliminary Group B beta Strep 02/06/18 12:05 Blood - Peripheral Aerobic Blood Culture - Preliminary No growth in 1 day 02/06/18 12:05 Blood - Peripheral Anaerobic Blood Culture - Preliminary No growth in 1 day 02/06/18 12:14 Blood - Peripheral Aerobic Blood Culture - Preliminary No growth in 1 day 02/06/18 12:14 Blood - Peripheral Anaerobic Blood Culture - Preliminary No growth in 1 day Assessment and Plan - Attending Attestation Attending Attestation: Plan is for the patient to start physical therapy out of bed weight-bear to tolerance. Antibiotics per infectious disease and wound care for dressing changes with wound VAC change every 3 days. Patient will most likely need IV antibiotics for 6 weeks dependent upon infectious disease protocol.
[2018-02-08] MEDS: Multivitamin/Minerals Therapeutic Tablet PO SCH ×2 (08:56→20:47)
[2018-02-08] MEDS: Senna/Docusate Sodium 8.6/50 MG Tablet PO SCH ×2 (08:56→20:46)
[2018-02-08 09:40] LABS: Hematocrit 28.4 % (39.0-51.0); Hemoglobin 8.8 gm/dL (13.0-17.0)
--- NOTE | 2018-02-08 11:33 | P.PN ---
Subjective Interval history: Follow up for left hip hematoma and infection, failed outpatient, S/P i& D with application of wound VAC insertion. Patient is out of bed to chair. States that he is doing a lot better. Wound VAC in place, draining small amount of serosanguineous drainage. Pain is manageable with Denies SOB/ dyspnea. Denies chest pain, palpitations, headaches, dizziness. Denies fevers, chills, n/ v/d. Denies dysuria. Physical Exam Vital signs: Vital Signs 02/07/18 14:42 02/07/18 14:45 02/07/18 15:00 Temperature 97.4 F L Pulse Rate 74 72 66 Respiratory Rate 14 14 7 L Blood Pressure 134/80 156/78 H 156/77 H Pulse Oximetry 96 94 L 96 02/07/18 15:15 02/07/18 15:30 02/07/18 15:45 Temperature Pulse Rate 73 74 73 Respiratory Rate 14 8 L 13 Blood Pressure 157/77 H 149/71 H 134/63 Pulse Oximetry 98 96 96 02/07/18 16:00 02/07/18 16:15 02/07/18 16:30 Temperature Pulse Rate 74 84 66 Respiratory Rate 12 10 L 10 L Blood Pressure 127/59 L 116/54 L 123/60 Pulse Oximetry 02/07/18 17:00 02/07/18 18:00 02/07/18 20:00 Temperature 97.5 F L Pulse Rate 80 82 Respiratory Rate 12 17 Blood Pressure 149/81 H 140/76 Pulse Oximetry 96 02/07/18 20:37 02/07/18 21:00 02/07/18 21:45 Temperature 98.6 F Pulse Rate 68 Respiratory Rate 18 17 Blood Pressure 130/67 Pulse Oximetry 97 96 02/07/18 22:47 02/08/18 00:00 02/08/18 01:00 Temperature 97.8 F Pulse Rate 67 Respiratory Rate 18 19 18 Blood Pressure 127/69 Pulse Oximetry 97 02/08/18 03:00 02/08/18 03:30 02/08/18 04:00 Temperature 98.2 F Pulse Rate 66 Respiratory Rate 18 16 18 Blood Pressure 118/60 Pulse Oximetry 99 02/08/18 05:25 02/08/18 08:05 02/08/18 09:36 Temperature 98.6 F Pulse Rate 67 Respiratory Rate 18 18 Blood Pressure 119/63 Pulse Oximetry 95 97 Intake & Output 02/07/18 02/08/18 02/08/18 18:59 06:59 18:59 Intake Total 2320 / 2320 4500 / 4500 2730 / 2730 Output Total 650 / 650 600 / 600 Balance 1670 / 1670 3900 / 3900 2730 / 2730 Weight 88.5 kg Intake: IV 100 / 100 100 / 100 2250 / 2250 LR 1000 mL Inj 1,000 ML @ 80 1000 / 1000 mls/hr IV.CONT .[id number] A[facility]ET Rx# :[id number] NS Inj 1,000 ML @ 70 mls/hr IV. 1000 / 1000 CONT .[id number] AHMET Rx#:[id number] Vancomycin Inj 1,000 MG In NS 250 / 250 Inj 250 ML @ 250 mls/hr IV.SIG Q12H A[facility]ET Rx#:[id number] Ancef Inj 1,000 MG In NS Inj 100 / 100 100 / 100 100 ML @ 200 mls/hr IV.SIG Q6H AHMET Rx#:[id number] Oral 420 / 420 1400 / 1400 480 / 480 Anesthesia Amount 1800 / 1800 1800 / 1800 Other 1200 / 1200 Output: Urine 500 / 500 450 / 450 Estimated Blood Loss 150 / 150 150 / 150 Other: # Voids 1 1 Date of Last Bowel Movement 02/06/18 02/07/18 02/07/18 # Bowel Movements 0 # Incontinent Bowel Movements 0 Narrative: GENERAL: Well-nourished, well-developed pleasant male patient in [facility]. SKIN: Warm and dry. No rash. HEENT: Normocephalic. Pupils equal and round. Mucous membranes pink and moist. NECK: Supple. Trachea midline. CARDIOVASCULAR: Regular rate and rhythm. No murmur appreciated. RESPIRATORY: No accessory muscle use. Clear to auscultation. Breath sounds equal bilaterally. GASTROINTESTINAL: Abdomen soft, non-tender, nondistended. Normoactive bowel sounds x4. MUSCULOSKELETAL: No obvious deformities. 1+ BLE edema. Left lateral hip with wound VAC, mild surrounding edema and warmth to touch. NEUROLOGICAL: Awake and alert. No obvious cranial nerve deficits. Motor grossly within normal limits. Moving all extremities spontaneously. Normal speech. Results - Labs CBC & Chem 7: 02/08/18 09:13 02/07/18 06:15 Laboratory Results - last 24 hr 02/07/18 02/08/18 02/08/18 10:50 01:14 01:18 Hgb Hct POC Glucose 536 H* 196 H Blood Type O Negative Antibody Screen Negative MTS Gel Crossmatch See Detail 02/08/18 02/08/18 02/08/18 06:59 07:01 09:13 Hgb 8.8 L Hct 28.4 L POC Glucose 332 H 157 H Blood Type Antibody Screen MTS Gel Crossmatch Microbiology 02/06/18 11:55 Abscess - Leg Gram Stain - Final 02/06/18 11:55 Abscess - Leg Wound Culture - Final Group B beta Strep 02/06/18 12:05 Blood - Peripheral Aerobic Blood Culture - Preliminary No growth in 2 days 02/06/18 12:05 Blood - Peripheral Anaerobic Blood Culture - Preliminary No growth in 2 days 02/06/18 12:14 Blood - Peripheral Aerobic Blood Culture - Preliminary No growth in 2 days 02/06/18 12:14 Blood - Peripheral Anaerobic Blood Culture - Preliminary No growth in 2 days 02/07/18 13:10 Abscess - Hip Fungal Smear - Final No fungal elements seen 02/07/18 13:10 Abscess - Hip Gram Stain - Final 02/07/18 13:02 Tissue - Hip Fungal Smear - Final No fungal elements seen 02/07/18 13:02 Tissue - Hip Gram Stain - Final 02/07/18 13:02 Abscess - Hip Fungal Smear - Final No fungal elements seen 02/07/18 13:02 Abscess - Hip Gram Stain - Final - Procedures Irrigation and debridement and application of wound VAC and insertion, 02/07/18 Assessment and Plan - Assessment (1) Hematoma of left hip Code(s): S70.02XA - Contusion of left hip, initial encounter Status: Acute (2) Bilateral lower extremity edema Code(s): R60.0 - Localized edema Status: Acute - Plan 67-year-old male with a history of left hip surgery 4 months ago. He presents with hematoma with increasing swelling, pain and erythema despite being on doxycycline. S/P I & D with wound VAC placement Left hip hematoma, suspected infection, failed outpatient treatment: acute -Left Hip CT reviewed, shows left BHARGAV, air in the soft tissues at apparent site of open wound most of induration confined to subcutaneous tissues; hematoma in the gluteus muscle. -Consulted ortho, Dr. Simon appreciate recommendations. -Monitor wound and blood cultures -Pain control with Lortab and IV morphine prn -Further disposition per ortho, plan is DC possibly home tomorrow with [facility] -IV Vancomycin -IVF DC BLE edema: Denies history of heart failure, no shortness of breath, chest pain. Possibly dependent edema. -Kidney function unremarkable. -EKG tracing, sinus rhythm. -Chest x-ray images , shows cardiomegaly but no signs of heart failure. -Doppler U/S negative for DVT -Patient also with low albumin which could be contributing. Add ensure. -Outpatient follow up if edema persists. -DC IVF, start lasix x2 days Multiple medical conditions of anemia, ADD and depression. Stable, continue outpatient medications as appropriate. DVT prophylaxis: with SCD and early ambulation.
--- NOTE | 2018-02-08 14:31 | P.DCO ---
- Physical Therapy Order: Evaluate and treat - Home Health Nursing Order: Signs/symptoms of disease process, Medication education-adverse effect, Wound care and dressing changes, Nursing assessment with vital signs - Certification I have seen patient Pierce Rossi on 02/08/18. My clinical findings support the need for the requested home health care services because: Deconditioned with increased weakness, High risk of falls, Infection with risk of complications I certify that my clinical findings support that this patient is homebound because: Post-op weakness, Unsteady gait/balance
--- NOTE | 2018-02-08 15:21 | P.PNID ---
Subjective Remarks: Patient underwent I&D of the left hip and wound vac placement yesterday. Notes irritation at the left hip incision. No fever . No chills. Wound culture prelim has viridans strep group. Left hip replacement 4 months ago. The patient developed hematoma at the left hip and he was monitored by the orthopedic physician. He was put on oral doxycycline, which he took for about a month. Apparently he was doing well, but approximately 4 days ago, the area of the left hip appeared more swollen and erythematous and it formed a tiny protruding round lesion which then started to drain serous fluid. Antibiotics: Vancomycin Lines: peripheral IVs without signs of infection. Past Medical History: Medical History (Last Reviewed 02/06/18 @ 12:43 by PATEL Gutiérrez) ADHD (Acute) COPD (chronic obstructive pulmonary disease) (Acute) Depression (Acute) Hematoma of hip (Acute) Pneumonia (Acute) Allergies/Adverse Reactions: Allergies No Known Allergies Allergy (Verified 02/06/18 11:49) Objective Vital Signs 02/07/18 15:15 02/07/18 15:30 02/07/18 15:45 Temperature Pulse Rate 73 74 73 Respiratory Rate 14 8 L 13 Blood Pressure 157/77 H 149/71 H 134/63 Pulse Oximetry 98 96 96 02/07/18 16:00 02/07/18 16:15 02/07/18 16:30 Temperature Pulse Rate 74 84 66 Respiratory Rate 12 10 L 10 L Blood Pressure 127/59 L 116/54 L 123/60 Pulse Oximetry 02/07/18 17:00 02/07/18 18:00 02/07/18 20:00 Temperature 97.5 F L Pulse Rate 80 82 Respiratory Rate 12 17 Blood Pressure 149/81 H 140/76 Pulse Oximetry 96 02/07/18 20:37 02/07/18 21:00 02/07/18 21:45 Temperature 98.6 F Pulse Rate 68 Respiratory Rate 18 17 Blood Pressure 130/67 Pulse Oximetry 97 96 02/07/18 22:47 02/08/18 00:00 02/08/18 01:00 Temperature 97.8 F Pulse Rate 67 Respiratory Rate 18 19 18 Blood Pressure 127/69 Pulse Oximetry 97 02/08/18 03:00 02/08/18 03:30 02/08/18 04:00 Temperature 98.2 F Pulse Rate 66 Respiratory Rate 18 16 18 Blood Pressure 118/60 Pulse Oximetry 99 02/08/18 05:25 02/08/18 08:05 02/08/18 09:36 Temperature 98.6 F Pulse Rate 67 Respiratory Rate 18 18 Blood Pressure 119/63 Pulse Oximetry 95 97 02/08/18 12:43 Temperature 98.6 F Pulse Rate 65 Respiratory Rate 16 Blood Pressure 126/67 Pulse Oximetry 97 Intake & Output 02/07/18 02/08/18 02/08/18 18:59 06:59 18:59 Intake Total 2320 / 2320 4500 / 4500 2730 / 2730 Output Total 650 / 650 600 / 600 Balance 1670 / 1670 3900 / 3900 2730 / 2730 Weight 88.5 kg Intake: IV 100 / 100 100 / 100 2250 / 2250 LR 1000 mL Inj 1,000 ML @ 80 1000 / 1000 mls/hr IV.CONT .[id number] AHMET Rx# :[id number] NS Inj 1,000 ML @ 70 mls/hr IV. 1000 / 1000 CONT .[id number] AHMET Rx#:[id number] Vancomycin Inj 1,000 MG In NS 250 / 250 Inj 250 ML @ 250 mls/hr IV.SIG Q12H AHMET Rx#:[id number] Ancef Inj 1,000 MG In NS Inj 100 / 100 100 / 100 100 ML @ 200 mls/hr IV.SIG Q6H AHMET Rx#:[id number] Oral 420 / 420 1400 / 1400 480 / 480 Anesthesia Amount 1800 / 1800 1800 / 1800 Other 1200 / 1200 Output: Urine 500 / 500 450 / 450 Estimated Blood Loss 150 / 150 150 / 150 Other: # Voids 1 1 Date of Last Bowel Movement 02/06/18 02/07/18 02/07/18 # Bowel Movements 0 # Incontinent Bowel Movements 0 02/07/18 13:02 Abscess - Hip Gram Stain - Final 02/07/18 13:02 Abscess - Hip Wound Culture - Preliminary Viridans streptococcus [facility] 02/07/18 13:02 Tissue - Hip Gram Stain - Final 02/07/18 13:02 Tissue - Hip Wound Culture - Preliminary Viridans streptococcus [facility] 02/07/18 13:10 Abscess - Hip Gram Stain - Final 02/07/18 13:10 Abscess - Hip Wound Culture - Preliminary No growth in 24 hours 02/06/18 11:55 Abscess - Leg Gram Stain - Final 02/06/18 11:55 Abscess - Leg Wound Culture - Final Group B beta Strep 02/06/18 12:05 Blood - Peripheral Aerobic Blood Culture - Preliminary No growth in 2 days 02/06/18 12:05 Blood - Peripheral Anaerobic Blood Culture - Preliminary No growth in 2 days 02/06/18 12:14 Blood - Peripheral Aerobic Blood Culture - Preliminary No growth in 2 days 02/06/18 12:14 Blood - Peripheral Anaerobic Blood Culture - Preliminary No growth in 2 days 02/07/18 13:10 Abscess - Hip Fungal Smear - Final No fungal elements seen 02/07/18 13:10 Abscess - Hip Fungal Culture - Pending 02/07/18 13:02 Tissue - Hip Fungal Smear - Final No fungal elements seen 02/07/18 13:02 Tissue - Hip Fungal Culture - Pending 02/07/18 13:02 Abscess - Hip Fungal Smear - Final No fungal elements seen 02/07/18 13:02 Abscess - Hip Fungal Culture - Pending 02/07/18 13:10 Abscess - Hip Acid Fast Bacilli Smear - Pending 02/07/18 13:10 Abscess - Hip Mycobacterial Culture - Pending 02/07/18 13:02 Abscess - Hip Acid Fast Bacilli Smear - Pending 02/07/18 13:02 Abscess - Hip Mycobacterial Culture - Pending 02/07/18 13:02 Tissue - Hip Acid Fast Bacilli Smear - Pending 02/07/18 13:02 Tissue - Hip Mycobacterial Culture - Pending Lab - Hematology Results 02/08/18 09:13 Hgb 8.8 L Hct 28.4 L Lab - Chemistry Results 02/06/18 02/07/18 02/07/18 18:06 06:15 06:15 Sodium 142 Potassium 4.0 Chloride 109 H Carbon Dioxide 25.9 Anion Gap 7 BUN 13 Creatinine 0.83 Estimated GFR Greater than 89 POC Glucose 116 H Random Glucose 91 Calcium 8.4 L Magnesium 2.1 Imaging: ITS Impressions Venous Doppler Study 02/06/18 00:00 CONCLUSION: Negative for deep venous thrombosis. Howard Sommer MD FACR Hip CT 02/06/18 12:25 CONCLUSION: 1. Air in the soft tissues at apparent site of open wound most of induration confined to subcutaneous tissues. There appear to be a hematoma in the gluteus muscle. 2. Don't see ancillary signs of infection. Chest X-Ray 02/06/18 12:27 CONCLUSION: Compensated cardiomegaly otherwise negative Physical Exam: PHYSICAL EXAMINATION: GENERAL: No acute distress. He is awake and alert and oriented. HEENT: Head is atraumatic and normocephalic. Extraocular movements grossly intact. Her pupils are reactive to light. No icterus. Oropharynx: Mucosa moist. No visible lesions. NECK: Supple without adenopathy or swelling. LUNGS: Clear to auscultation. HEART: Regular S1, S2, without murmurs, rubs or gallops. ABDOMEN: Bowel sounds present. Soft, nontender. EXTREMITIES: The left hip has vac in place. No erythema or edema. Serous drainage in vac. SKIN: No diffuse rash. NEUROLOGIC: Nonfocal. PSYCHIATRIC: Normal affect. L Assessment and Plan - Plan IMPRESSION: 1. Hematoma of the left hip following left hip replacement. 2. Infected left hip hematoma. Strep viridans group on culture so far. RECOMMENDATIONS: 1. Stop Vancomycin. 2. Begin Ancef. Monitor the wound culture. 3. Continue Ancef Q 8 hours for now and plan on transition to IV Ceftriaxone for outpatient treatment. 4. Anticipate PIC line and home treatment on discharge. 5. Continue to monitor the cultures.
[2018-02-09] MEDS: Amphetamine/Dextroamphetamine 30 MG Tablet PO SCH ×3 (06:37→17:41)
[2018-02-09] MEDS: Multivitamin/Minerals Therapeutic Tablet PO SCH ×2 (09:02→21:50)
[2018-02-09] MEDS: Senna/Docusate Sodium 8.6/50 MG Tablet PO SCH ×2 (09:02→21:50)
--- NOTE | 2018-02-09 09:26 | P.PN ---
Subjective Interval history: Follow up for left hip hematoma and infection, failed outpatient, S/P i& D with application of wound VAC insertion. Patient is out of bed to chair. States he is doing well. States that he wants his Adderall to be given on how he takes it at home at least no later than 7 PM at night for the last dose. Otherwise, complaints of soreness and pain in the left hip area, bilateral lower extremity edema continues but has improved a little bit. Denies SOB/ dyspnea. Denies chest pain, palpitations, headaches, dizziness. Denies fevers, chills, n/v/d. Denies dysuria. Physical Exam Vital signs: Vital Signs 02/08/18 09:36 02/08/18 12:43 02/08/18 15:33 Temperature 98.6 F Pulse Rate 65 Respiratory Rate 16 Blood Pressure 126/67 Pulse Oximetry 97 97 98 02/08/18 16:09 02/08/18 20:00 02/08/18 22:00 Temperature 98.6 F 98.4 F Pulse Rate 72 76 Respiratory Rate 18 18 18 Blood Pressure 112/67 133/73 Pulse Oximetry 98 99 02/09/18 00:00 02/09/18 02:00 02/09/18 04:00 Temperature 97.6 F 98.5 F Pulse Rate 69 Respiratory Rate 18 18 18 Blood Pressure 145/82 H 132/82 Pulse Oximetry 99 95 02/09/18 09:16 Temperature Pulse Rate Respiratory Rate 16 Blood Pressure 137/69 Pulse Oximetry 98 Intake & Output 02/08/18 02/09/18 02/09/18 18:59 06:59 18:59 Intake Total 3180 / 3180 100 / 100 Output Total 500 / 500 Balance 3180 / 3180 100 / 100 -500 / -500 Intake: IV 2700 / 2700 100 / 100 LR 1000 mL Inj 1,000 ML @ 80 1000 / 1000 mls/hr IV.CONT .[id number] AHMET Rx# :[id number] NS Inj 1,000 ML @ 70 mls/hr IV. 1000 / 1000 CONT .[id number] AHMET Rx#:[id number] Vancomycin Inj 1,000 MG In NS 500 / 500 Inj 250 ML @ 250 mls/hr IV.SIG Q12H AHMET Rx#:[id number] Ancef Inj 1,000 MG In NS Inj 100 / 100 100 ML @ 200 mls/hr IV.SIG Q6H AHMET Rx#:[id number] Rocephin Inj 2,000 MG In NS Inj 100 / 100 100 / 100 100 ML @ 200 mls/hr IV.SIG Q8H AHMET Rx#:[id number] Oral 480 / 480 Output: Urine 500 / 500 Other: # Voids 1 6 Date of Last Bowel Movement 02/07/18 02/07/18 Narrative: GENERAL: Well-nourished, well-developed pleasant male patient in [facility]. SKIN: Warm and dry. No rash. HEENT: Normocephalic. Pupils equal and round. Mucous membranes pink and moist. NECK: Supple. Trachea midline. CARDIOVASCULAR: Regular rate and rhythm. No murmur appreciated. RESPIRATORY: No accessory muscle use. Clear to auscultation. Breath sounds equal bilaterally. GASTROINTESTINAL: Abdomen soft, non-tender, nondistended. Normoactive bowel sounds x4. MUSCULOSKELETAL: No obvious deformities. 1+ RLE edema, +2 LLE. Left lateral hip with wound VAC, mild surrounding edema and warmth to touch. NEUROLOGICAL: Awake and alert. No obvious cranial nerve deficits. Motor grossly within normal limits. Moving all extremities spontaneously. Normal speech. Results - Labs CBC & Chem 7: 02/09/18 08:54 02/07/18 06:15 Laboratory Results - last 24 hr 02/08/18 09:13 Hgb 8.8 L Hct 28.4 L Microbiology 02/07/18 13:02 Abscess - Hip Gram Stain - Final 02/07/18 13:02 Abscess - Hip Wound Culture - Preliminary Viridans streptococcus [facility] 02/07/18 13:02 Tissue - Hip Gram Stain - Final 02/07/18 13:02 Tissue - Hip Wound Culture - Preliminary Viridans streptococcus [facility] 02/07/18 13:10 Abscess - Hip Gram Stain - Final 02/07/18 13:10 Abscess - Hip Wound Culture - Preliminary No growth in 24 hours 02/06/18 11:55 Abscess - Leg Gram Stain - Final 02/06/18 11:55 Abscess - Leg Wound Culture - Final Group B beta Strep 02/06/18 12:05 Blood - Peripheral Aerobic Blood Culture - Preliminary No growth in 2 days 02/06/18 12:05 Blood - Peripheral Anaerobic Blood Culture - Preliminary No growth in 2 days 02/06/18 12:14 Blood - Peripheral Aerobic Blood Culture - Preliminary No growth in 2 days 02/06/18 12:14 Blood - Peripheral Anaerobic Blood Culture - Preliminary No growth in 2 days 02/07/18 13:10 Abscess - Hip Fungal Smear - Final No fungal elements seen 02/07/18 13:02 Tissue - Hip Fungal Smear - Final No fungal elements seen 02/07/18 13:02 Abscess - Hip Fungal Smear - Final No fungal elements seen - Procedures Irrigation and debridement and application of wound VAC and insertion, 02/07/18 Assessment and Plan - Assessment (1) Hematoma of left hip Code(s): S70.02XA - Contusion of left hip, initial encounter Status: Acute (2) Bilateral lower extremity edema Code(s): R60.0 - Localized edema Status: Acute - Plan 67-year-old male with a history of left hip surgery 4 months ago. He presents with hematoma with increasing swelling, pain and erythema despite being on doxycycline. S/P I & D with wound VAC placement Left hip hematoma, suspected infection, failed outpatient treatment: acute -Left Hip CT reviewed, shows left BHARGAV, air in the soft tissues at apparent site of open wound most of induration confined to subcutaneous tissues; hematoma in the gluteus muscle. -Consulted ortho, Dr. Simon appreciate recommendations. -Monitor wound and blood cultures -Pain control with Lortab and IV morphine prn -Further disposition per ortho, plan is DC possibly home tomorrow with C -IV Vancomycin -ID consulted appreciated recommendation -Wound Vac in place, possible dsg change today. F/U with DC disposition with ortho [facility]HC ordered wound vac possible use at DC BLE edema: Denies history of heart failure, no shortness of breath, chest pain. Possibly dependent edema. -Kidney function unremarkable. -EKG tracing, sinus rhythm. -Chest x-ray images , shows cardiomegaly but no signs of heart failure. -Doppler U/S negative for DVT -Patient also with low albumin which could be contributing. Add ensure. -Outpatient follow up if edema persists. -DC IVF, start lasix x2 days Multiple medical conditions of anemia, ADD and depression. Stable, continue outpatient medications as appropriate. DVT prophylaxis: with SCD and early ambulation. Code Status: Full Code Discussed Condition With: Patient, nursing Discharge Planning: Plan to DC home when cleared by ortho and ID
[2018-02-09 10:25] LABS: Baso # (Auto) 0.1 th/mm3 (0.0-0.2); Eos # (Auto) 0.2 th/mm3 (0.0-0.4); Eos % (Auto) 2.4 % (0.0-4.0); Hematocrit 31.4 % (39.0-51.0); Hemoglobin 9.5 gm/dL (13.0-17.0); Lymph % (Auto) 26.2 % (9.0-44.0); Mean Corpuscular Hemoglobin 20.2 pg (27.0-34.0); Mean Corpuscular Volume 66.8 fL (80.0-100.0); Mean Platelet Volume 7.5 fL (7.0-11.0); Mono # (Auto) 0.7 th/mm3 (0.0-0.9); Neut # (Auto) 4.7 th/mm3 (1.8-7.7); Neut % (Auto) 61.4 % (16.0-70.0); Platelet Count 505 th/mm3 (150-450); Red Cell Distribution Width 20.2 % (11.6-17.2); White Blood Count 7.6 th/mm3 (4.0-11.0)
[2018-02-09 10:27] LABS: Mean Corpuscular HGB Conc 30.2 % (32.0-36.0)
[2018-02-09 10:54] LABS: Carbon Dioxide 26.7 meq/L (21.0-32.0); Potassium 4.3 meq/L (3.5-5.1)
--- NOTE | 2018-02-09 12:43 | P.PNOP ---
Subjective Interval history: Patient complaining of some discomfort around the incision site. He feels tired today. Physical Exam Vital signs: Vital Signs 02/08/18 12:43 02/08/18 15:33 02/08/18 16:09 Temperature 98.6 F 98.6 F Pulse Rate 65 72 Respiratory Rate 16 18 Blood Pressure 126/67 112/67 Pulse Oximetry 97 98 98 02/08/18 20:00 02/08/18 22:00 02/09/18 00:00 Temperature 98.4 F 97.6 F Pulse Rate 76 69 Respiratory Rate 18 18 18 Blood Pressure 133/73 145/82 H Pulse Oximetry 99 99 02/09/18 02:00 02/09/18 04:00 02/09/18 09:16 Temperature 98.5 F Pulse Rate Respiratory Rate 18 18 16 Blood Pressure 132/82 137/69 Pulse Oximetry 95 98 Intake & Output 02/08/18 02/09/18 02/09/18 18:59 06:59 18:59 Intake Total 3180 / 3180 100 / 100 100 / 100 Output Total 500 / 500 Balance 3180 / 3180 100 / 100 -400 / -400 Intake: IV 2700 / 2700 100 / 100 100 / 100 LR 1000 mL Inj 1,000 ML @ 80 1000 / 1000 mls/hr IV.CONT .[id number] AHMET Rx# :[id number] NS Inj 1,000 ML @ 70 mls/hr IV. 1000 / 1000 CONT .[id number] AHMET Rx#:[id number] Vancomycin Inj 1,000 MG In NS 500 / 500 Inj 250 ML @ 250 mls/hr IV.SIG Q12H AHMET Rx#:[id number] Ancef Inj 1,000 MG In NS Inj 100 / 100 100 ML @ 200 mls/hr IV.SIG Q6H AHMET Rx#:[id number] Rocephin Inj 2,000 MG In NS Inj 100 / 100 100 / 100 100 / 100 100 ML @ 200 mls/hr IV.SIG Q8H AHMET Rx#:[id number] Oral 480 / 480 Output: Urine 500 / 500 Other: # Voids 1 6 Date of Last Bowel Movement 02/07/18 02/07/18 Results - Labs CBC & Chem 7: 02/09/18 08:54 02/09/18 08:54 Laboratory Results - last 24 hr 02/09/18 02/09/18 08:54 08:54 WBC 7.6 RBC 4.70 Hgb 9.5 L Hct 31.4 L MCV 66.8 L MCH 20.2 L MCHC 30.2 L RDW 20.2 H Plt Count 505 H MPV 7.5 Neut % (Auto) 61.4 Lymph % (Auto) 26.2 [place] % (Auto) 9.0 H Eos % (Auto) 2.4 Baso % (Auto) 1.0 Neut # (Auto) 4.7 Lymph # (Auto) 2.0 [place] # (Auto) 0.7 Eos # (Auto) 0.2 Baso # (Auto) 0.1 WBC Differential . Differential Comment Auto diff final Sodium 140 Potassium 4.3 Chloride 105 Carbon Dioxide 26.7 Anion Gap 8 BUN 15 Creatinine 0.88 Estimated GFR 87 L Random Glucose 85 Calcium 9.0 Microbiology 02/07/18 13:10 Abscess - Hip Acid Fast Bacilli Smear - Final No acid fast bacilli seen 02/07/18 13:02 Tissue - Hip Acid Fast Bacilli Smear - Final No acid fast bacilli seen 02/07/18 13:02 Abscess - Hip Acid Fast Bacilli Smear - Final No acid fast bacilli seen 02/06/18 12:05 Blood - Peripheral Aerobic Blood Culture - Preliminary No growth in 3 days 02/06/18 12:05 Blood - Peripheral Anaerobic Blood Culture - Preliminary No growth in 3 days 02/06/18 12:14 Blood - Peripheral Aerobic Blood Culture - Preliminary No growth in 3 days 02/06/18 12:14 Blood - Peripheral Anaerobic Blood Culture - Preliminary No growth in 3 days 02/07/18 13:02 Abscess - Hip Gram Stain - Final 02/07/18 13:02 Abscess - Hip Wound Culture - Preliminary Viridans streptococcus [facility] 02/07/18 13:02 Tissue - Hip Gram Stain - Final 02/07/18 13:02 Tissue - Hip Wound Culture - Preliminary Viridans streptococcus [facility] 02/07/18 13:10 Abscess - Hip Gram Stain - Final 02/07/18 13:10 Abscess - Hip Wound Culture - Preliminary No growth in 24 hours 02/06/18 11:55 Abscess - Leg Gram Stain - Final 02/06/18 11:55 Abscess - Leg Wound Culture - Final Group B beta Strep - Procedures Irrigation and debridement and application of wound VAC and insertion, 02/07/18 Assessment and Plan - Attending Attestation Attending Attestation: Dressing is dry and intact. Drainage from wound VAC is noted to be serosanguineous. He is in bed at present time. Moving all extremities well. Plan is for the patient to continue with IV medication and wound care daily. He will need his wound VAC changed every few days. He plans on going home with home health care and most likely on the PICC line. Orthopedically okay to be discharged when okay with medical and infectious disease. Continue PT.
--- NOTE | 2018-02-09 13:20 | P.PNID ---
Subjective Remarks: Patient underwent I&D of the left hip and wound vac placement. Still feels irritation at the left hip incision. No fever. No chills. Wound culture has viridans strep group. Left hip replacement 4 months ago. The patient developed hematoma at the left hip and he was monitored by the orthopedic physician. He was put on oral doxycycline, which he took for about a month. Apparently he was doing well, but approximately 4 days ago, the area of the left hip appeared more swollen and erythematous and it formed a tiny protruding round lesion which then started to drain serous fluid. Antibiotics: Ceftriaxone Lines: peripheral IVs without signs of infection. Past Medical History: Medical History (Last Reviewed 02/06/18 @ 12:43 by PATEL Gutiérrez) ADHD (Acute) COPD (chronic obstructive pulmonary disease) (Acute) Depression (Acute) Hematoma of hip (Acute) Pneumonia (Acute) Allergies/Adverse Reactions: Allergies No Known Allergies Allergy (Verified 02/06/18 11:49) Objective Vital Signs 02/08/18 15:33 02/08/18 16:09 02/08/18 20:00 Temperature 98.6 F 98.4 F Pulse Rate 72 76 Respiratory Rate 18 18 Blood Pressure 112/67 133/73 Pulse Oximetry 98 98 99 02/08/18 22:00 02/09/18 00:00 02/09/18 02:00 Temperature 97.6 F Pulse Rate 69 Respiratory Rate 18 18 18 Blood Pressure 145/82 H Pulse Oximetry 99 02/09/18 04:00 02/09/18 09:16 Temperature 98.5 F Pulse Rate Respiratory Rate 18 16 Blood Pressure 132/82 137/69 Pulse Oximetry 95 98 Intake & Output 02/08/18 02/09/18 02/09/18 18:59 06:59 18:59 Intake Total 3180 / 3180 100 / 100 100 / 100 Output Total 500 / 500 Balance 3180 / 3180 100 / 100 -400 / -400 Intake: IV 2700 / 2700 100 / 100 100 / 100 LR 1000 mL Inj 1,000 ML @ 80 1000 / 1000 mls/hr IV.CONT .[id number] AHMET Rx# :[id number] NS Inj 1,000 ML @ 70 mls/hr IV. 1000 / 1000 CONT .[id number] AHMET Rx#:[id number] Vancomycin Inj 1,000 MG In NS 500 / 500 Inj 250 ML @ 250 mls/hr IV.SIG Q12H AHMET Rx#:[id number] Ancef Inj 1,000 MG In NS Inj 100 / 100 100 ML @ 200 mls/hr IV.SIG Q6H AHMET Rx#:[id number] Rocephin Inj 2,000 MG In NS Inj 100 / 100 100 / 100 100 / 100 100 ML @ 200 mls/hr IV.SIG Q8H AHMET Rx#:[id number] Oral 480 / 480 Output: Urine 500 / 500 Other: # Voids 1 6 Date of Last Bowel Movement 02/07/18 02/07/18 02/07/18 13:02 Tissue - Hip Gram Stain - Final 02/07/18 13:02 Tissue - Hip Wound Culture - Preliminary Viridans streptococcus grp 02/07/18 13:02 Abscess - Hip Gram Stain - Final 02/07/18 13:02 Abscess - Hip Wound Culture - Preliminary Viridans streptococcus grp 02/07/18 13:10 Abscess - Hip Acid Fast Bacilli Smear - Final No acid fast bacilli seen 02/07/18 13:10 Abscess - Hip Mycobacterial Culture - Pending 02/07/18 13:02 Tissue - Hip Acid Fast Bacilli Smear - Final No acid fast bacilli seen 02/07/18 13:02 Tissue - Hip Mycobacterial Culture - Pending 02/07/18 13:02 Abscess - Hip Acid Fast Bacilli Smear - Final No acid fast bacilli seen 02/07/18 13:02 Abscess - Hip Mycobacterial Culture - Pending 02/06/18 12:05 Blood - Peripheral Aerobic Blood Culture - Preliminary No growth in 3 days 02/06/18 12:05 Blood - Peripheral Anaerobic Blood Culture - Preliminary No growth in 3 days 02/06/18 12:14 Blood - Peripheral Aerobic Blood Culture - Preliminary No growth in 3 days 02/06/18 12:14 Blood - Peripheral Anaerobic Blood Culture - Preliminary No growth in 3 days 02/07/18 13:10 Abscess - Hip Gram Stain - Final 02/07/18 13:10 Abscess - Hip Wound Culture - Preliminary No growth in 24 hours 02/06/18 11:55 Abscess - Leg Gram Stain - Final 02/06/18 11:55 Abscess - Leg Wound Culture - Final Group B beta Strep 02/07/18 13:10 Abscess - Hip Fungal Smear - Final No fungal elements seen 02/07/18 13:10 Abscess - Hip Fungal Culture - Pending 02/07/18 13:02 Tissue - Hip Fungal Smear - Final No fungal elements seen 02/07/18 13:02 Tissue - Hip Fungal Culture - Pending 02/07/18 13:02 Abscess - Hip Fungal Smear - Final No fungal elements seen 02/07/18 13:02 Abscess - Hip Fungal Culture - Pending Lab - Hematology Results 02/08/18 02/09/18 09:13 08:54 WBC 7.6 RBC 4.70 Hgb 8.8 L 9.5 L Hct 28.4 L 31.4 L MCV 66.8 L MCH 20.2 L MCHC 30.2 L RDW 20.2 H Plt Count 505 H MPV 7.5 Neut % (Auto) 61.4 Lymph % (Auto) 26.2 [place] % (Auto) 9.0 H Eos % (Auto) 2.4 Baso % (Auto) 1.0 Neut # (Auto) 4.7 Lymph # (Auto) 2.0 [place] # (Auto) 0.7 Eos # (Auto) 0.2 Baso # (Auto) 0.1 WBC Differential . Differential Comment Auto diff final Lab - Chemistry Results 02/08/18 02/08/18 02/08/18 01:14 01:18 06:59 Sodium Potassium Chloride Carbon Dioxide Anion Gap BUN Creatinine Estimated GFR POC Glucose 536 H* 196 H 332 H Random Glucose Calcium 02/08/18 02/09/18 07:01 08:54 Sodium 140 Potassium 4.3 Chloride 105 Carbon Dioxide 26.7 Anion Gap 8 BUN 15 Creatinine 0.88 Estimated GFR 87 L POC Glucose 157 H Random Glucose 85 Calcium 9.0 Imaging: ITS Impressions Venous Doppler Study 02/06/18 00:00 CONCLUSION: Negative for deep venous thrombosis. Howard Sommer MD FACR Hip CT 02/06/18 12:25 CONCLUSION: 1. Air in the soft tissues at apparent site of open wound most of induration confined to subcutaneous tissues. There appear to be a hematoma in the gluteus muscle. 2. Don't see ancillary signs of infection. Chest X-Ray 02/06/18 12:27 CONCLUSION: Compensated cardiomegaly otherwise negative Physical Exam: PHYSICAL EXAMINATION: GENERAL: No acute distress. HEENT: Head is atraumatic and normocephalic. Extraocular movements grossly intact. The pupils are reactive to light. No icterus. Oropharynx: Mucosa moist. No visible lesions. NECK: Supple without adenopathy or swelling. LUNGS: Clear to auscultation. HEART: Regular S1, S2, without murmurs, rubs or gallops. ABDOMEN: Bowel sounds present. Soft, nontender. EXTREMITIES: The left hip has vac in place. No erythema or edema. Serous drainage in vac. SKIN: No diffuse rash. NEUROLOGIC: Nonfocal. PSYCHIATRIC: Normal affect. Assessment and Plan - Plan IMPRESSION: Abscess of the left hip following left hip replacement. Post I&D. Strep viridans. RECOMMENDATIONS: 1. Continue Ceftriaxone IV until March 21, 2018. 2. PIC line for outpatient treatment. PIC line ordered. Okay for discharge from my standpoint when arrangements are made.
--- NOTE | 2018-02-09 17:47 | P.DCO ---
Post Hospital Infusion Therapy Location of Infusion Therapy: Home Health Care IV Infusion Order Patient Weight: 88.5 kg - Diagnosis (1) Left hip postoperative wound infection Code(s): T81.4XXA - Infection following a procedure, initial encounter; B99.9 - Unspecified infectious disease (2) Hematoma of left hip Code(s): S70.02XA - Contusion of left hip, initial encounter - Administer Medication Ceftriaxone Dose: 2 grams IV Directions: q 24 hours Stop Treatment: 03/21/18 - Additional Information Venous Access: PICC Line Additional Instructions: [x] Peripheral flush and dressing changes per protocol [x] Implanted port and central waistline joiner: * Implanted port: 10 ml Normal Saline followed by 5 ml Heparin 100 units/ml Heparin flush after each use and monthly to maintain. [] May leave port accessed during therapy. [] May leave peripheral site accessed for duration of therapy. [x] If patient has SOB or respiratory distress, check oxygen saturation. If less than 90% or clinical signs of respiratory distress, administer oxygen at 2 L/min. via nasal cannula and notify physician. [x] Anaphylaxis/Reaction orders: * Stop infusion. * Keep IV line open with saline flush. * Notify physician. * Monitor vital signs every 15 minutes until symptoms resolve. * Check Oxygen saturation; Oxygen at 2 L/min. via nasal cannula if less than 90% or clinical signs of respiratory distress. * Administer diphenhydramine (Benadryl) 25 mg IV STAT, (unless patient has received as pre-med). May repeat once, if necessary. * Solu-Cortef 250 mg IVP over 30-60 seconds, use 100 mg vials for each dissolution. * Epinephrine (1mg/1 ml) 0.3 mg subcutaneously or IVP now with any signs of respiratory distress. * Check with physician for new additional pre-med orders if patient is re- challenged or re-treated. [x] May remove PICC line when treatment complete, after confirming with Physician. [x] If the patient is admitted to the hospital, the ED, or transferred via [facility] , complete transfer form including medication reconciliation order sheet. Weekly Labs: BMP, CBC w/diff Case Management Consult: Yes Allergies No Known Allergies Allergy (Verified 02/06/18 11:49)
[2018-02-10] MEDS: Multivitamin/Minerals Therapeutic Tablet PO SCH ×2 (08:21→21:27)
[2018-02-10] MEDS: Senna/Docusate Sodium 8.6/50 MG Tablet PO SCH ×2 (08:21→21:26)
[2018-02-10] MEDS: Amphetamine/Dextroamphetamine 30 MG Tablet PO SCH ×3 (08:22→17:18)
[2018-02-10 10:36] LABS: Baso # (Auto) 0.1 th/mm3 (0.0-0.2); Baso % (Auto) 1.1 % (0.0-2.0); Eos # (Auto) 0.3 th/mm3 (0.0-0.4); Eos % (Auto) 4.5 % (0.0-4.0); Hematocrit 32.1 % (39.0-51.0); Hemoglobin 9.8 gm/dL (13.0-17.0); Lymph # (Auto) 1.7 th/mm3 (1.0-4.8); Lymph % (Auto) 26.2 % (9.0-44.0); Mean Corpuscular Hemoglobin 20.3 pg (27.0-34.0); Mean Corpuscular Volume 66.8 fL (80.0-100.0); Mean Platelet Volume 7.5 fL (7.0-11.0); Mono # (Auto) 0.6 th/mm3 (0.0-0.9); Mono % (Auto) 9.7 % (0.0-8.0); Neut # (Auto) 3.8 th/mm3 (1.8-7.7); Neut % (Auto) 58.5 % (16.0-70.0); Platelet Count 499 th/mm3 (150-450); White Blood Count 6.5 th/mm3 (4.0-11.0)
[2018-02-10 10:39] LABS: Mean Corpuscular HGB Conc 30.4 % (32.0-36.0)
[2018-02-10 11:02] LABS: Calcium 8.7 mg/dL (8.5-10.1)
[2018-02-10] MEDS ORDERED: Heparin Central Flush 100 UNIT/ML 5 ML Vial IV.FLUSH PRN (12:15)
--- NOTE | 2018-02-10 13:52 | P.DCO ---
- Home Health Nursing Order: Medical education, Signs/symptoms of disease process, Medication education-adverse effect, Wound care and dressing changes, Nursing assessment with vital signs, IV medication administration Instructions: Change wound vac 3 times a week - Certification I have seen patient Pierce Rossi on 02/10/18. My clinical findings support the need for the requested home health care services because: Limited mobility due to disease progression, Deconditioned with increased weakness, Infection with risk of complications, Injectable medication education/ administration I certify that my clinical findings support that this patient is homebound because: Post-op weakness, Unsafe to leave home unassisted
[2018-02-10] MEDS ORDERED: Polyethylene Glycol 3350 17 GM Packet PO ONE (14:05)
--- NOTE | 2018-02-10 14:09 | P.PNIM ---
Subjective Interval history: The patient was hopeful to go home today. He said that he talked with the continuous pillowcase cutter who stated his wound VAC might not be set up in time. He says his pain is controlled. He has not had a bowel movement yet. Physical Exam Vital signs: Vital Signs 02/09/18 16:56 02/09/18 17:58 02/09/18 18:27 Temperature 98 F Pulse Rate 75 Respiratory Rate 18 18 Blood Pressure 133/75 Pulse Oximetry 99 99 02/09/18 20:00 02/10/18 00:00 02/10/18 04:00 Temperature 99.3 F 98.4 F 98 F Pulse Rate 70 71 96 H Respiratory Rate 18 18 Blood Pressure 126/76 128/74 135/72 Pulse Oximetry 98 96 96 02/10/18 05:00 02/10/18 08:00 02/10/18 09:35 Temperature 98.1 F Pulse Rate 93 H Respiratory Rate 19 18 16 Blood Pressure 136/68 Pulse Oximetry 95 02/10/18 12:00 Temperature 97.8 F Pulse Rate 81 Respiratory Rate 18 Blood Pressure 134/68 Pulse Oximetry 100 Intake & Output 02/09/18 02/10/18 02/10/18 18:59 06:59 18:59 Intake Total 200 / 200 100 / 100 100 / 100 Output Total 500 / 500 Balance -300 / -300 100 / 100 100 / 100 Weight 88.5 kg 195 kg Intake: IV 200 / 200 100 / 100 100 / 100 Rocephin Inj 2,000 MG In NS Inj 200 / 200 100 / 100 100 / 100 100 ML @ 200 mls/hr IV.SIG Q8H AHMET Rx#:[id number] Output: Urine 500 / 500 Other: # Voids 3 Date of Last Bowel Movement 02/07/18 Narrative: GENERAL: Well-nourished, well-developed pleasant male patient in [facility]. SKIN: Warm and dry. No rash. HEENT: Normocephalic. Pupils equal and round. Mucous membranes pink and moist. NECK: Supple. Trachea midline. CARDIOVASCULAR: Regular rate and rhythm. No murmur appreciated. RESPIRATORY: No accessory muscle use. Clear to auscultation. Breath sounds equal bilaterally. GASTROINTESTINAL: Abdomen soft, non-tender, nondistended. Normoactive bowel sounds x4. MUSCULOSKELETAL: No obvious deformities. 1+ RLE edema, +2 LLE. Left lateral hip with wound VAC, mild surrounding edema and warmth to touch. NEUROLOGICAL: Awake and alert. No obvious cranial nerve deficits. Motor grossly within normal limits. Moving all extremities spontaneously. Normal speech. Results - Labs CBC & Chem 7: 02/10/18 09:41 02/10/18 09:41 Laboratory Results - last 24 hr 02/07/18 02/10/18 02/10/18 10:50 09:41 09:41 WBC 6.5 RBC 4.80 Hgb 9.8 L Hct 32.1 L MCV 66.8 L MCH 20.3 L MCHC 30.4 L RDW 20.0 H Plt Count 499 H MPV 7.5 Neut % (Auto) 58.5 Lymph % (Auto) 26.2 [place] % (Auto) 9.7 H Eos % (Auto) 4.5 H Baso % (Auto) 1.1 Neut # (Auto) 3.8 Lymph # (Auto) 1.7 [place] # (Auto) 0.6 Eos # (Auto) 0.3 Baso # (Auto) 0.1 WBC Differential . Differential Comment Auto diff final Sodium 140 Potassium 4.0 Chloride 103 Carbon Dioxide 27.0 Anion Gap 10 BUN 17 Creatinine 0.96 Estimated GFR 78 L Random Glucose 126 H Calcium 8.7 MTS Gel Crossmatch See Detail Microbiology 02/07/18 13:02 Abscess - Hip Gram Stain - Final 02/07/18 13:02 Abscess - Hip Wound Culture - Preliminary Viridans streptococcus grp Group B beta Strep 02/06/18 12:05 Blood - Peripheral Aerobic Blood Culture - Preliminary No growth in 4 days 02/06/18 12:05 Blood - Peripheral Anaerobic Blood Culture - Preliminary No growth in 4 days 02/06/18 12:14 Blood - Peripheral Aerobic Blood Culture - Preliminary No growth in 4 days 02/06/18 12:14 Blood - Peripheral Anaerobic Blood Culture - Preliminary No growth in 4 days 02/07/18 13:10 Abscess - Hip Gram Stain - Final 02/07/18 13:10 Abscess - Hip Wound Culture - Final 02/07/18 13:02 Tissue - Hip Gram Stain - Final 02/07/18 13:02 Tissue - Hip Wound Culture - Final Viridans streptococcus grp Group B beta Strep 02/07/18 13:10 Abscess - Hip Acid Fast Bacilli Smear - Final No acid fast bacilli seen 02/07/18 13:02 Tissue - Hip Acid Fast Bacilli Smear - Final No acid fast bacilli seen 02/07/18 13:02 Abscess - Hip Acid Fast Bacilli Smear - Final No acid fast bacilli seen - Procedures Irrigation and debridement and application of wound VAC and insertion, 02/07/18 Assessment and Plan - Assessment (1) Left hip postoperative wound infection Code(s): T81.4XXA - Infection following a procedure, initial encounter; B99.9 - Unspecified infectious disease Status: Acute (2) Bilateral lower extremity edema Code(s): R60.0 - Localized edema Status: Acute (3) Hematoma of left hip Code(s): S70.02XA - Contusion of left hip, initial encounter Status: Acute - Plan 67-year-old male with a history of left hip surgery 4 months ago. He presents with hematoma with increasing swelling, pain and erythema despite being on doxycycline. S/P I & D with wound VAC placement Left hip hematoma, suspected infection, failed outpatient treatment: acute -Left Hip CT reviewed, shows left BHARGAV, air in the soft tissues at apparent site of open wound most of induration confined to subcutaneous tissues; hematoma in the gluteus muscle. -Consulted ortho, Dr. Simon appreciate recommendations. -Monitor wound and blood cultures -Pain control with Lortab and IV morphine prn. Will be discharged on PO Lortab. -plan is DC home with [facility] when wound vac orders are in. -ID consulted, appreciated recommendations. The pt is s/p PICC line and will be d/c on IV ceftriaxone. BLE edema: Denies history of heart failure, no shortness of breath, chest pain. Possibly dependent edema. -Kidney function unremarkable. -EKG tracing, sinus rhythm. -Chest x-ray images , shows cardiomegaly but no signs of heart failure. -Doppler U/S negative for DVT -Patient also with low albumin which could be contributing. Added Ensure. -Outpatient follow up if edema persists. -DC IVF, started Lasix x2 days Multiple medical conditions of anemia, ADD and depression. Stable, continue outpatient medications as appropriate. DVT prophylaxis: with SCD and early ambulation. Discharge Planning: D/c with [facility] when wound vac ordered
--- NOTE | 2018-02-10 16:30 | P.PNOP ---
Subjective Interval history: Patient comfortable today without complaints. He states he is ready to go home. He is waiting on his DMEs. Physical Exam Vital signs: Vital Signs 02/09/18 16:56 02/09/18 17:58 02/09/18 18:27 Temperature 98 F Pulse Rate 75 Respiratory Rate 18 18 Blood Pressure 133/75 Pulse Oximetry 99 99 02/09/18 20:00 02/10/18 00:00 02/10/18 04:00 Temperature 99.3 F 98.4 F 98 F Pulse Rate 70 71 96 H Respiratory Rate 18 18 Blood Pressure 126/76 128/74 135/72 Pulse Oximetry 98 96 96 02/10/18 05:00 02/10/18 08:00 02/10/18 09:35 Temperature 98.1 F Pulse Rate 93 H Respiratory Rate 19 18 16 Blood Pressure 136/68 Pulse Oximetry 95 02/10/18 12:00 Temperature 97.8 F Pulse Rate 81 Respiratory Rate 18 Blood Pressure 134/68 Pulse Oximetry 100 Intake & Output 02/09/18 02/10/18 02/10/18 18:59 06:59 18:59 Intake Total 200 / 200 100 / 100 100 / 100 Output Total 500 / 500 Balance -300 / -300 100 / 100 100 / 100 Weight 88.5 kg 195 kg Intake: IV 200 / 200 100 / 100 100 / 100 Rocephin Inj 2,000 MG In NS Inj 200 / 200 100 / 100 100 / 100 100 ML @ 200 mls/hr IV.SIG Q8H AHMET Rx#:[id number] Output: Urine 500 / 500 Other: # Voids 3 Date of Last Bowel Movement 02/07/18 Results - Labs CBC & Chem 7: 02/10/18 09:41 02/10/18 09:41 Laboratory Results - last 24 hr 02/07/18 02/10/18 02/10/18 10:50 09:41 09:41 WBC 6.5 RBC 4.80 Hgb 9.8 L Hct 32.1 L MCV 66.8 L MCH 20.3 L MCHC 30.4 L RDW 20.0 H Plt Count 499 H MPV 7.5 Neut % (Auto) 58.5 Lymph % (Auto) 26.2 [place] % (Auto) 9.7 H Eos % (Auto) 4.5 H Baso % (Auto) 1.1 Neut # (Auto) 3.8 Lymph # (Auto) 1.7 [place] # (Auto) 0.6 Eos # (Auto) 0.3 Baso # (Auto) 0.1 WBC Differential . Differential Comment Auto diff final Sodium 140 Potassium 4.0 Chloride 103 Carbon Dioxide 27.0 Anion Gap 10 BUN 17 Creatinine 0.96 Estimated GFR 78 L Random Glucose 126 H Calcium 8.7 MTS Gel Crossmatch See Detail Microbiology 02/07/18 13:02 Abscess - Hip Gram Stain - Final 02/07/18 13:02 Abscess - Hip Wound Culture - Preliminary Viridans streptococcus grp Group B beta Strep 02/06/18 12:05 Blood - Peripheral Aerobic Blood Culture - Preliminary No growth in 4 days 02/06/18 12:05 Blood - Peripheral Anaerobic Blood Culture - Preliminary No growth in 4 days 02/06/18 12:14 Blood - Peripheral Aerobic Blood Culture - Preliminary No growth in 4 days 02/06/18 12:14 Blood - Peripheral Anaerobic Blood Culture - Preliminary No growth in 4 days 02/07/18 13:10 Abscess - Hip Gram Stain - Final 02/07/18 13:10 Abscess - Hip Wound Culture - Final 02/07/18 13:02 Tissue - Hip Gram Stain - Final 02/07/18 13:02 Tissue - Hip Wound Culture - Final Viridans streptococcus grp Group B beta Strep - Procedures Irrigation and debridement and application of wound VAC and insertion, 02/07/18 Assessment and Plan - Attending Attestation Attending Attestation: Wound VAC working well dressing has been changed. Less redness today. He is neurovascular intact to his toes. Plan is for him to go home with the PICC line and IV antibiotics and wound VAC. Plan to see him in the office this coming Tuesday for recheck.
--- NOTE | 2018-02-10 17:24 | P.DS ---
Date of admission: 02/07/18 10:36 Primary care physician: Carson Piedra MD Anticipated date of discharge: 02/10/18 Brief History from admission: This is a 67-year-old male with a history of left hip surgery 4 months ago. 5 weeks later he developed pain and was found to have hematoma. About 4 weeks ago , he had increased swelling, pain and redness and underwent bedside aspiration by his orthopedist Dr. Shen Simon. He was then started on doxycycline. Denies fever and chills. About a week ago, swelling has worsened as well as pain and redness noted pointing and last night started draining yellow material. Pain is severe when he raises his leg and radiates to his buttock. He was then advice by Dr. Simon to present to the emergency department and found to have possible infected hematoma and will undergo surgical intervention later today. Medical service has been requested to admit the patient. All other systems reviewed negative DS: Diagnosis - Discharge Diagnosis (1) Left hip postoperative wound infection Status: Acute (2) Bilateral lower extremity edema Status: Acute (3) Hematoma of left hip Status: Acute DS: Medications - Discharge Medications Prescriptions: hydrocodone-acetaminophen 1 tab PO Q6H PRN 3 Days tab PRN Reason: Pain sennosides-docusate sodium [Senna Plus] 1 tab PO BID 7 Days #14 tab DS: Summary Hospital Course: Wound 67-year-old male with a history of left hip surgery 4 months ago. He presents with hematoma with increasing swelling, pain and erythema despite being on doxycycline. Left Hip CT reviewed, shows left BHARGAV, air in the soft tissues at apparent site of open wound most of induration confined to subcutaneous tissues ; hematoma in the gluteus muscle. Consulted orthopedic surgery. S/P I & D with wound VAC placement. The wound care nurse was consulted. We monitored wound and blood cultures. He received pain control with Lortab and IV morphine prn. He Will be discharged on PO Lortab. ID was consulted. The pt is s/p PICC line and will be d/c on IV ceftriaxone to complete a course. He will follow up with orthopedic surgery as an outpt. BLE edema Denies history of heart failure, no shortness of breath, chest pain. Chest x- ray images, shows cardiomegaly but no signs of heart failure. Doppler U/S negative for DVT. Patient with low albumin. We added Ensure. He received Lasix. He will follow up with his PCP. - Time Spent with Patient Total time spent providing and/or coordinating discharge services: Greater than 30 minutes - Quality: VTE Deep Vein Thrombosis/Pulmonary Embolism Present on Admission: No Exam Vital signs: Vital Signs 02/09/18 17:58 02/09/18 18:27 02/09/18 20:00 Temperature 99.3 F Pulse Rate 70 Respiratory Rate 18 18 Blood Pressure 126/76 Pulse Oximetry 99 98 02/10/18 00:00 02/10/18 04:00 02/10/18 05:00 Temperature 98.4 F 98 F Pulse Rate 71 96 H Respiratory Rate 18 19 Blood Pressure 128/74 135/72 Pulse Oximetry 96 96 02/10/18 08:00 02/10/18 09:35 02/10/18 12:00 Temperature 98.1 F 97.8 F Pulse Rate 93 H 81 Respiratory Rate 18 16 18 Blood Pressure 136/68 134/68 Pulse Oximetry 95 100 Intake & Output 02/09/18 02/10/18 02/10/18 18:59 06:59 18:59 Intake Total 200 / 200 100 / 100 100 / 100 Output Total 500 / 500 Balance -300 / -300 100 / 100 100 / 100 Weight 88.5 kg 195 kg Intake: IV 200 / 200 100 / 100 100 / 100 Rocephin Inj 2,000 MG In NS Inj 200 / 200 100 / 100 100 / 100 100 ML @ 200 mls/hr IV.SIG Q8H AHMET Rx#:[id number] Output: Urine 500 / 500 Other: # Voids 3 Date of Last Bowel Movement 02/07/18 Narrative: GENERAL: Well-nourished, well-developed pleasant male patient in NAD. SKIN: Warm and dry. No rash. HEENT: Normocephalic. Pupils equal and round. Mucous membranes pink and moist. NECK: Supple. Trachea midline. CARDIOVASCULAR: Regular rate and rhythm. No murmur appreciated. RESPIRATORY: No accessory muscle use. Clear to auscultation. Breath sounds equal bilaterally. GASTROINTESTINAL: Abdomen soft, non-tender, nondistended. Normoactive bowel sounds x4. MUSCULOSKELETAL: No obvious deformities. 1+ RLE edema, +2 LLE. Left lateral hip with wound VAC, mild surrounding edema and warmth to touch. NEUROLOGICAL: Awake and alert. No obvious cranial nerve deficits. Motor grossly within normal limits. Moving all extremities spontaneously. Normal speech. Results Procedures completed during hospitalization: Irrigation and debridement and application of wound VAC and insertion, 02/07/18 Labs on day of discharge: Labs from last 24 hours 02/10/18 02/10/18 02/07/18 09:41 09:41 10:50 WBC 6.5 RBC 4.80 Hgb 9.8 L Hct 32.1 L MCV 66.8 L MCH 20.3 L MCHC 30.4 L RDW 20.0 H Plt Count 499 H MPV 7.5 Neut % (Auto) 58.5 Lymph % (Auto) 26.2 Irion % (Auto) 9.7 H Eos % (Auto) 4.5 H Baso % (Auto) 1.1 Neut # (Auto) 3.8 Lymph # (Auto) 1.7 Irion # (Auto) 0.6 Eos # (Auto) 0.3 Baso # (Auto) 0.1 WBC Differential . Differential Comment Auto diff final Sodium 140 Potassium 4.0 Chloride 103 Carbon Dioxide 27.0 Anion Gap 10 BUN 17 Creatinine 0.96 Estimated GFR 78 L Random Glucose 126 H Calcium 8.7 MTS Gel Crossmatch See Detail Preliminary micro results at discharge 02/07/18 13:02 Wound Culture - Preliminary Abscess - Hip Viridans streptococcus grp Group B beta Strep 02/06/18 12:05 Aerobic Blood Culture - Preliminary Blood - Peripheral No growth in 4 days Anaerobic Blood Culture - Preliminary No growth in 4 days 02/06/18 12:14 Aerobic Blood Culture - Preliminary Blood - Peripheral No growth in 4 days Anaerobic Blood Culture - Preliminary No growth in 4 days - Impressions ITS Impressions Venous Doppler Study 02/06/18 00:00 CONCLUSION: Negative for deep venous thrombosis. Howard Sommer MD FACR Hip CT 02/06/18 12:25 CONCLUSION: 1. Air in the soft tissues at apparent site of open wound most of induration confined to subcutaneous tissues. There appear to be a hematoma in the gluteus muscle. 2. Don't see ancillary signs of infection. Chest X-Ray 02/06/18 12:27 CONCLUSION: Compensated cardiomegaly otherwise negative Discharge Plan - Discharge Disposition Patient Disposition: /Home Health Service - Discharge Condition Condition: Stable - Discharge Order Discharge Orders: Discharge Order (Routine); Ordered 02/10/18 Ordered By: Gustavo Henao Orthopedic Clear for Discharge (Routine); Ordered 02/10/18 Ordered By: Raquel Simon - Discharge Details Anticipated Discharge Date: 02/10/18 Discharge Comment: D/c once arrangements for wound vac are made - Physicians Team Primary Care Provider: Carson Piedra Attending Provider: Gustavo Henao Other Providers: Angel Cantu MD ; Monisha Thorne MD ; Raquel Simon MD ; [facility]
[2018-02-10 18:06] VITALS: BP 133/68; PULSE 96; RESP 17; TEMP 98.2
[2018-02-10 18:22] VITALS: O2SAT 99
[2018-02-11] MEDS ORDERED: Heparin Central Flush 100 UNIT/ML 5 ML Vial IV.FLUSH SCH (09:00)
== END 2018-02-10 21:49 | disposition home health service (06) ==
LOC: NEPE 10:47 → NEDA 13:53 → INTOOBSV 13:53 → NEDA 17:11 → NEPGCP 17:15 → N05 02-07 16:28
PROVIDERS: ADMIT Hospitalist; ATTEND Hospitalist